=== PATIENT | male | born 1935 | race Caucasian/White ===

== ENCOUNTER 2016-03-30 22:29 | Inpatient (IN) | payer MEDICARE ==
[~2016-03-30] VITALS: Ht 180.3 cm; Wt 92.1 kg
[~2016-03-30 22:29] MED LIST: ALBU0.086 INH; ASMA220A INH; ATOR40TA PO; COUM2TAB PO; COUM3TAB PO; DUONI NEB; OMEP20TA39 PO; POTA20IN3 PO; PRED10 PO; SM A81CH PO; TERA5CAP3 PO; THEO200T11 PO; TOPR25TA2 PO; TORS1TAB12 PO
[2016-03-30 22:45] VITALS: BP 156/70; PULSE 108; RESP 35; TEMP 98.9; O2SAT 90
[2016-03-30] MEDS ORDERED: SODIUM CHLORIDE 0.9% FLUSH 5 ML FLUSH IVF PRN (22:45)
[2016-03-30 22:50] VITALS: RESP 22; O2SAT 94
[2016-03-30] MEDS ORDERED: FUROSEMIDE 40 MG/4 ML VIAL IV PUSH ONE (23:00)
[2016-03-30 23:02] VITALS: O2SAT 96
[2016-03-30 23:09] LABS: AUTOMATED NEUTROPHIL # 12.4 TH/MM3 (1.8-7.7); BASOPHIL # 0.2 TH/MM3 (0-0.2); BASOPHIL % 1.2 % (0.0-2.0); EOSINOPHIL # 0.1 TH/MM3 (0-0.4); EOSINOPHIL % 0.3 % (0.0-4.0); HEMATOCRIT 34.3 % (39.0-51.0); HEMO FLAGS DIFF FINAL; LYMPH % 5.4 % (9.0-44.0); LYMPHOCYTE # 0.8 TH/MM3 (1.0-4.8); MEAN CELL VOLUME 89.2 FL (80.0-100.0); MEAN CORPUSCULAR HEMOGLOBIN 28.7 PG (27.0-34.0); MEAN CORPUSCULAR HGB CONC 32.2 % (32.0-36.0); MONO % 9.9 % (0.0-8.0); NEUT % 83.2 % (16.0-70.0); PLATELET COUNT 242 TH/MM3 (150-450); RED BLOOD COUNT 3.85 MIL/MM3 (4.50-5.90); RED CELL DISTRIBUTION WIDTH 16.9 % (11.6-17.2); WHITE BLOOD COUNT 14.9 TH/MM3 (4.0-11.0)
--- NOTE | 2016-03-30 23:11 | RADRPT ---
EXAM DATE/TIME: 03/30/2016 22:56 [facility] COMPARISON: CHEST SINGLE AP, June 28, 2015, 10:54. INDICATIONS : Shortness of breath. MEDICAL HISTORY : Chronic obstructive pulmonary disease. SURGICAL HISTORY : CABG. ENCOUNTER: Initial ACUITY: 3 days PAIN SCORE: 0/10 LOCATION: Bilateral chest FINDINGS: A single view of the chest demonstrates the lungs to be symmetrically aerated without evidence of mas s, infiltrate or effusion. The cardiomediastinal contours are unremarkable. Osseous structures are intact. Prior median sternotomy with intact sternal wire sutures. CONCLUSION: The lungs are clear. Manjit Aguilar MD on March 30, 2016 at 23:09 Board Certified Radiologist. This report was verified electronically.
[2016-03-30 23:17] VITALS: BP 155/80; PULSE 90; RESP 28; O2SAT 91
[2016-03-30 23:19] VITALS: O2SAT 97
[2016-03-30 23:30] VITALS: BP 154/95
[2016-03-30 23:32] LABS: APTT (PATIENT) 20.5 SEC (24.3-30.1); PROTHROMBIN TIME - PATIENT 10.7 SEC (9.8-11.6)
--- NOTE | 2016-03-30 23:43 | PD ---
HPI Chief Complaint: Respiratory Symptoms Time Seen by Provider: 22:41 Travel History International Travel<30 days: No Contact w/Intl Traveler<30days: No Traveled to known affect area: No History of Present Illness HPI 81-year-old male arrives to the ER by EMS. The patient has COPD. He has had increasing shortness of breath for the past 2 days. He uses nebulizers at home a few times a day. He also has BiPAP at home. He describes some chest tightness. Earlier in the day he took nitroglycerin which was helpful. Severity is moderate. The patient's undergone catheterization and CABG. No cough or fever is reported. PFSH Past Medical History Hx Anticoagulant Therapy: Yes (warfarin) AAA: Yes Arthritis: Yes Asthma: No Atrial Fibrillation: Yes Autoimmune Disease: No Blood Disorders: No Anxiety: Yes Depression: No Heart Rhythm Problems: No Cancer: No Cardiac Catheterization: No Cardiovascular Problems: Yes High Cholesterol: Yes Chemotherapy: No Chest Pain: Yes Congestive Heart Failure: Yes COPD: Yes Cerebrovascular Accident: No Coronary Artery Disease: Yes Diabetes: No Diminished Hearing: Yes (HEARING AIDS ) Diverticulitis: Yes Endocrine: No Gastrointestinal Disorders: Yes (Mcgee's Esophagus) GERD: Yes Glaucoma: No Genitourinary: Yes (hemorrhoids, BPH) Headaches: No Hepatitis: No Hiatal Hernia: Yes Hypertension: Yes Immune Disorder: No Implanted Vascular Access Dvce: No Kidney Stones: No Musculoskeletal: Yes (right rotator cuff problems, BACK) Neurologic: Yes (positional vertigo; spinal stenosis) Psychiatric: No Reproductive: No Respiratory: Yes Immunizations Current: Yes Migraines: No Myocardial Infarction: Yes Radiation Therapy: No Renal Failure: No Seizures: No Sickle Cell Disease: No Sleep Apnea: Yes (USES CPAP AT NIGHT.) Thyroid Disease: No Ulcer: No Tetanus Vaccination: Unknown Influenza Vaccination: Yes PNEUMOCCOCAL Vaccine (Year): 1 Past Surgical History Abdominal Surgery: Yes (SPLEENECTOMY) AICD: No Arteriovenous Shunt: No Cardiac Surgery: Yes Cholecystectomy: Yes Coronary Artery Bypass Graft: Yes Coronary Stent: Yes Ear Surgery: No Endocrine Surgery: No Eye Surgery: No Genitourinary Surgery: No Gynecologic Surgery: No Insulin Pump: No Joint Replacement: No Neurologic Surgery: No Oral Surgery: No Pacemaker: No Thoracic Surgery: Yes Valve Replacement: Yes Other Surgery: Yes (SPLEEN REMOVED, L3/L4 BACK SURGERY ) Social History Alcohol Use: No (OCCASSIONALLY ) Tobacco Use: No Substance Use: No Allergies-Medications (Allergen,Severity, Reaction): Coded Allergies: Protamine Sulfate (Verified Allergy, Severe, Anaphylaxis, 06/28/15) Adhesives (Verified Allergy, Intermediate, 06/28/15) PATIENT DENIES *MDRO Multi-Drug Resistant Organism (Verified Adverse Reaction, Unknown, ) MRSA MRSA PCR Screen negative 06/29/14 and 07/02/14. Cleared per infection control Reported Meds & Prescriptions Reported Meds & Active Scripts Active Reported Omeprazole 20 Mg Tab 20 Mg PO DAILY Stiolto Respimat Inh (Tiotropium-Olodaterol Inh) 2.5-2.5 Mcg/Act Aero 2 Puff INH DAILY Montelukast (Montelukast Sodium) 10 Mg Tab 10 Mg PO HS Asmanex 120 Act Twisthaler (Mometasone 120 Act Inh) 220 Mcg/Act Inh 2 Puff INH BID Metoprolol Tartrate 25 Mg Tab 12.5 Mg PO DAILY Furosemide 20 Mg Tab 20 Mg PO DAILY Ferrous Sulfate 325 Mg Tab 325 Mg PO TID Escitalopram (Escitalopram Oxalate) 10 Mg Tab 10 Mg PO DAILY Clopidogrel (Clopidogrel Bisulfate) 75 Mg Tab 75 Mg PO DAILY Atorvastatin (Atorvastatin Calcium) 40 Mg Tab 40 Mg PO HS Aspirin 81 Mg Tabdr 81 Mg PO DAILY Potassium Chloride CR (Potassium Chloride) 10 Meq Tab 20 Meq PO DAILY Review of Systems Except as stated in HPI: all other systems reviewed are Neg Physical Exam Narrative GENERAL: 81-year-old male well-nourished well-developed quite dyspneic SKIN: Warm and dry. HEAD: Atraumatic. Normocephalic. EYES: Pupils equal and round. No scleral icterus. No injection or drainage. ENT: No nasal bleeding or discharge. Mucous membranes pink and moist. NECK: Trachea midline. No JVD. CARDIOVASCULAR: Tachycardia. Irregular rhythm. RESPIRATORY: Wheezing present bilaterally. Tachypnea. GASTROINTESTINAL: Abdomen soft, non-tender, nondistended. Hepatic and splenic margins not palpable. MUSCULOSKELETAL: No obvious deformities. No clubbing. No cyanosis. No edema. NEUROLOGICAL: Awake and alert. No obvious cranial nerve deficits. Motor grossly within normal limits. Normal speech. PSYCHIATRIC: Appropriate mood and affect; insight and judgment normal. Data Data Last Documented VS Vital Signs Date Time Temp Pulse Resp B/P Pulse Ox O2 Delivery O2 Flow Rate FiO2 03/31/16 01:30 97 60 03/30/16 23:30 154/95 03/30/16 23:19 BiPAP 03/30/16 23:17 90 28 03/30/16 22:50 4 03/30/16 22:45 98.9 Orders Electrocardiogram (03/30/16 ) Complete Blood Count With Diff (03/30/16 22:43) Comprehensive Metabolic Panel (03/30/16 22:43) B-Type Natriuretic Peptide (03/30/16 22:43) D-Dimer (03/30/16 22:43) Act Partial Throm Time (Ptt) (03/30/16 22:43) Prothrombin Time / Inr (Pt) (03/30/16 22:43) Magnesium (Mg) (03/30/16 22:43) Ckmb (Isoenzyme) Profile (03/30/16 22:43) Troponin I (03/30/16 22:43) Arterial Blood Gas (Abg) (03/30/16 22:43) Urinalysis - C+S If Indicated (03/30/16 22:43) Influenzae A/B Antigen (03/30/16 22:43) Blood Culture (03/30/16 22:43) Iv Access Insert/Monitor (03/30/16 22:43) Ecg Monitoring (03/30/16 22:43) Oximetry (03/30/16 22:43) Oxygen Administration (03/30/16 22:43) Chest, Single Ap (03/30/16 22:43) Sodium Chloride 0.9% Flush (Ns Flush) (03/30/16 22:45) Resp Bipap / Cpap Non Invas Vt (03/30/16 22:43) Furosemide Inj (Lasix Inj) (03/30/16 23:00) CKMB (03/30/16 22:40) CKMB% (03/30/16 22:40) Ct Pulmonary Angiogram (03/31/16 00:59) Iohexol 350 Inj (Omnipaque 350 Inj) (03/31/16 01:22) Albuterol Neb (Albuterol Neb) (03/31/16 02:00) Aspirin (Aspirin) (03/31/16 02:45) Morphine Inj (Morphine Inj) (03/31/16 02:45) Nitroglycerin 2% Oint (Nitroglycerin 2% (03/31/16 02:45) Labs Laboratory Tests Test 03/30/16 03/30/16 22:40 23:12 White Blood Count 14.9 TH/MM3 Red Blood Count 3.85 MIL/MM3 Hemoglobin 11.1 GM/DL Hematocrit 34.3 % Mean Corpuscular Volume 89.2 FL Mean Corpuscular Hemoglobin 28.7 PG Mean Corpuscular Hemoglobin 32.2 % Concent Red Cell Distribution Width 16.9 % Platelet Count 242 TH/MM3 Mean Platelet Volume 9.4 FL Neutrophils (%) (Auto) 83.2 % Lymphocytes (%) (Auto) 5.4 % Monocytes (%) (Auto) 9.9 % Eosinophils (%) (Auto) 0.3 % Basophils (%) (Auto) 1.2 % Neutrophils # (Auto) 12.4 TH/MM3 Lymphocytes # (Auto) 0.8 TH/MM3 Monocytes # (Auto) 1.5 TH/MM3 Eosinophils # (Auto) 0.1 TH/MM3 Basophils # (Auto) 0.2 TH/MM3 CBC Comment DIFF FINAL Differential Comment Prothrombin Time 10.7 SEC Prothromb Time International 1.0 RATIO Ratio Activated Partial 20.5 SEC Thromboplast Time D-Dimer Quantitative (PE/DVT) 2.60 MG/L FEU B-Type Natriuretic Peptide 102 PG/ML Sodium Level 142 MEQ/L Potassium Level 3.9 MEQ/L Chloride Level 108 MEQ/L Carbon Dioxide Level 24.0 MEQ/L Anion Gap 10 MEQ/L Blood Urea Nitrogen 23 MG/DL Creatinine 0.92 MG/DL Estimat Glomerular Filtration 79 ML/MIN Rate Random Glucose 155 MG/DL Calcium Level 8.8 MG/DL Magnesium Level 2.3 MG/DL Total Bilirubin 0.2 MG/DL Aspartate Amino Transf 20 U/L (AST/SGOT) Alanine Aminotransferase 20 U/L (ALT/SGPT) Alkaline Phosphatase 68 U/L Total Creatine Kinase 383 U/L Creatine Kinase MB 5.7 NG/ML Creatine Kinase MB % 1.5 % Troponin I 0.10 NG/ML Total Protein 6.6 GM/DL Albumin 3.2 GM/DL Blood Gas Puncture Site RT RADIAL Blood Gas Patient Temperature 98.6 Blood Gas HCO3 23 mmol/L Blood Gas Base Excess -1.0 mmol/L Blood Gas Oxygen Saturation 96 % Arterial Blood pH 7.42 Arterial Blood Partial 36 mmHg Pressure CO2 Arterial Blood Partial 159 mmHG Pressure O2 Arterial Blood Oxygen Content 15.9 Vol % Arterial Blood 1.7 % Carboxyhemoglobin Arterial Blood Methemoglobin 1.7 % Blood Gas Hemoglobin 11.5 G/DL Oxygen Delivery Device BiPAP Blood Gas Ventilator Setting IPAP10/EPAP 5 Blood Gas Inspired Oxygen 60 % MDM Medical Decision Making Medical Screen Exam Complete: Yes Emergency Medical Condition: Yes Medical Record Reviewed: Yes Differential Diagnosis Pneumonia, COPD, CHF, coronary artery disease, renal failure Narrative Course EKG reveals a regular rhythm with a right bundle branch block pattern is indeed ST depressions in the precordial leads V1 through V3 which appears unchanged compared to priors, stable right bundle branch block pattern is observed Last 24 hours Impressions Chest X-Ray 03/30/163 Signed Impressions: Service Date/Time: Wednesday, March 30, 2016 22:56 - CONCLUSION: The lungs are clear. Manjit Aguilar MD CBC & BMP Diagram 03/30/16 22:40 Tn 0.10 BNP 102 Albumin 3.2 D-Dimer 2.60 APTT 20.5 INR 1.0 7.42/36/23 BE-1.0, FiO2 60% The patient received BiPAP shortly following admission. He reports subjective improvement after BiPAP was started. He received a fever as of breathing treatments. Aspirin and nitroglycerin and morphine was added. The patient will be admitted to the [facility]. ACS is considered. D/w Dr Porter. Critical Care Narrative Aggregate critical care time was 40 minutes. Time to perform other separately billable procedures was not included in the critical care time. My time did not include minutes spent treating any other patients simultaneously or on activities that did not directly contribute to the patient's treatment. The services I provided to this patient were to treat and/or prevent clinically significant deterioration that could result in: Hypoxia, cardiopulmonary arrest I provided critical care services requiring my management, as noted below: Chart data review, documentation time, medication orders and management, vital sign assessments/reviewing monitor data, ordering and reviewing lab tests, ordering and interpreting/reviewing x-rays and diagnostic studies, care of the patient and discussion of the patient with the admitting physicians. Diagnosis Primary Impression: Elevated troponin I level Additional Impression: Dyspnea Qualified Code: R06.00 - Dyspnea, unspecified type Admitting Information Admitting Physician Requests: Admit Cam Walker MD Mar 30, 2016 23:43
[2016-03-30 23:49] LABS: ALKALINE PHOSPHATASE 68 U/L (45-117); ALT (GPT) 20 U/L (12-78); ANION GAP 10 MEQ/L (5-15); AST (GOT) 20 U/L (15-37); BLOOD UREA NITROGEN 23 MG/DL (7-18); CHLORIDE 108 MEQ/L (98-107); CREATINE KINASE 383 U/L (39-308); GLOMERULAR FILTRATION RATE 79 ML/MIN (>89); MAGNESIUM 2.3 MG/DL (1.5-2.5); POTASSIUM 3.9 MEQ/L (3.5-5.1); SODIUM (NA) 142 MEQ/L (136-145); TOTAL BILIRUBIN ADULT 0.2 MG/DL (0.2-1.0)
[2016-03-31] VITALS (21 sets, daily range): BP systolic 113–186; BP diastolic 70–91; PULSE 64–89; RESP 18–31; TEMP 97–97.5; O2SAT 94–99
[2016-03-31 00:02] LABS: BLOOD GAS CARBOXYHEMOGLOBIN 1.7 % (0-4); BLOOD GAS HCO3 23 mmol/L (22-26); BLOOD GAS METHEMOGLOBIN 1.7 % (0-2); BLOOD GAS O2 HGB SATURATION 96 % (90-100); BLOOD GAS OXYGEN CONTENT 15.9 Vol % (12.0-20.0); BLOOD GAS PCO2 36 mmHg (38-42); BLOOD GAS PO2 159 mmHG (61-120); BLOOD GAS TOTAL HGB 11.5 G/DL (12.0-16.0); TEMP CORR TO 98.6
[2016-03-31 00:02] LABS: CKMB 5.7 NG/ML (0.5-3.6)
[2016-03-31 00:03] LABS: CRITICAL VALUE NO; DRAW SITE RT RADIAL; FIO2 60 %; NUMBER OF ARTERIAL PUNCTURES 1; OXYGEN DEVICE BiPAP; STAT YES; ULNAR PULSE PRESENT; VENT SETTINGS IPAP10/EPAP 5
[2016-03-31] MEDS ORDERED: OMEP20TA PO (00:04)
[2016-03-31] MEDS ORDERED: FERR325T PO (00:04)
[2016-03-31] MEDS ORDERED: MONT10TA4 PO (00:04)
[2016-03-31] MEDS ORDERED: PRED10 PO (00:04)
[2016-03-31] MEDS ORDERED: TERA5CAP3 PO (00:04)
[2016-03-31] MEDS ORDERED: FURO20TA PO (00:04)
[2016-03-31] MEDS ORDERED: METO25TA3 PO (00:04)
[2016-03-31] MEDS ORDERED: ASPI1TAB69 PO (00:04)
[2016-03-31] MEDS ORDERED: ATOR40TA16 PO (00:04)
[2016-03-31] MEDS ORDERED: ESCI10TA PO (00:04)
[2016-03-31] MEDS ORDERED: POTA10TA8 PO (00:04)
[2016-03-31] MEDS ORDERED: CLOP75TA PO (00:04)
[2016-03-31] MEDS ORDERED: TIOT1AER INH (00:04)
[2016-03-31] MEDS ORDERED: ASMA220A INH (00:04)
[2016-03-31] MEDS ORDERED: THEO400T2 PO (00:04)
[2016-03-31] MEDS ORDERED: IOHEXOL 350 MG/ML 10 ML VIAL (for RAD DIAG) IV ONE (01:22)
--- NOTE | 2016-03-31 01:35 | RADRPT ---
EXAM DATE/TIME: 03/31/2016 01:16 [facility] COMPARISON: CT PULMONARY ANGIOGRAM, June 28, 2015, 12:25. INDICATIONS : Shortness of breath. IV CONTRAST: 79 cc Omnipaque 350 (iohexol) IV RADIATION DOSE: 14.50 CTDIvol (mGy) MEDICAL HISTORY : Hypertension. Chronic obstructive pulmonary disease. Congestive heart failure. SURGICAL HISTORY : CABG ENCOUNTER: Initial ACUITY: 1 day PAIN SCALE: 0/10 LOCATION: chest TECHNIQUE: Volumetric scanning of the chest was performed using a pulmonary embolism protocol MIP images were re constructed. Using automated exposure control and adjustment of the mA and/or kV according to patien t size, radiation dose was kept as low as reasonably achievable to obtain optimal diagnostic quality images. FINDINGS: PULMONARY ARTERIES: No filling defects are seen in the pulmonary arteries through the segmental level. LUNGS: There is no consolidation or pneumothorax . No concerning pulmonary nodule is visualized. PLEURAE: There is no pleural thickening or pleural effusion. MEDIASTINUM: There is good visualization of the great vessels of the middle mediastinum. No evidence of mediastin al or hilar adenopathy/mass. MISCELLANEOUS: Prior median sternotomy and CABG. CONCLUSION: The study is negative for pulmonary embolism. Manjit Aguilar MD on March 31, 2016 at 1:32 Board Certified Radiologist. This report was verified electronically.
[2016-03-31] MEDS: RESP: ALBUTEROL 2.5 MG/3 ML NEB (SCH) INH (02:01)
[2016-03-31] MEDS ORDERED: NITROGLYCERIN 2% OINT 1 GM PACKET TOP ONE (02:45)
[2016-03-31] MEDS ORDERED: MORPHINE SULFATE 4 MG/ML INJ IV PUSH ONE (02:45)
[2016-03-31] MEDS ORDERED: ASPIRIN 325 MG TAB PO ONE (02:45)
[2016-03-31] MEDS ORDERED: ACETAMINOPHEN/HYDROcodone 325 MG/5 MG TAB PO PRN (03:00)
[2016-03-31] MEDS ORDERED: SODIUM CHLORIDE 0.9% FLUSH 5 ML FLUSH FLUSH PRN (03:00)
[2016-03-31] MEDS ORDERED: MORPHINE SULFATE 4 MG/ML INJ IV PRN (03:00)
[2016-03-31] MEDS ORDERED: ACETAMINOPHEN 325 MG TAB PO PRN (03:00)
[2016-03-31] MEDS ORDERED: ONDANSETRON HCL 4 MG/2 ML VIAL IVP PRN (03:00)
[2016-03-31] MEDS ORDERED: BISACODYL 10 MG SUPP PR PRN (03:00)
[2016-03-31] MEDS ORDERED: RESP: ALBUTEROL 2.5 MG/IPRATROPIUM 0.5 MG NEB (PRN) NEB (03:00)
[2016-03-31] MEDS: LEVOFLOXACIN 750 MG PREMIX INJ 150 ML IV SCH (04:00)
--- NOTE | 2016-03-31 04:05 | HHI.HP ---
[facility] Unknown Admission Diagnosis COPD/Dyspnea, Tn 0.10 Diagnoses: (1) COPD (chronic obstructive pulmonary disease) Diagnosis: Principal (2) Elevated troponin I level Diagnosis: Principal (3) HTN (hypertension) Diagnosis: Principal Travel History International Travel<30 Days: No Contact w/Intl Traveler <30 Da: No Traveled to Known Affected Are: No History of Present Illness This is an 81-year-old male with PMH of COPD, A. fib, CAD and BPH who came to the ER with complaints of SOB and chest tightness x2 days. Denies fever, chills or cough. Took NTG x1 w/ improvement in symptoms. On arrival, O2 sat 90 % on RA, BP 156/70, HR 108, Temp 98.9. Was placed on 4L NC w/ O2 sat 93%, however while in ER had progressive SOB w/ hypoxia and started on BIPAP. Currently O2 sat 97% on 60% FIO2. ABG w/ pH 7.42, PCO2 36, PO2 159. WBC 14.9. Chemistry essentially at baseline. His CPK 383. Troponin 0.10. CXR with no acute findings. D-dimer elevated, CTA Pulm negative for PE. S/p Lasix, DuoNeb , MS and ASA in ER. Review of Systems Other ROS: 14 point review of systems otherwise negative. Past Family Social History Past Medical History PMH: COPD, A. fib, CAD and BPH Past Surgical History PAST SURGICAL HISTORY: Splenectomy, Cholecystectomy, Valve Replacement, Lumbar Surgery, Cardiac Stent, CABG Allergies: Coded Allergies: Protamine Sulfate (Verified Allergy, Severe, Anaphylaxis, 06/28/15) Adhesives (Verified Allergy, Intermediate, 06/28/15) PATIENT DENIES *MDRO Multi-Drug Resistant Organism (Verified Adverse Reaction, Unknown, ) MRSA MRSA PCR Screen negative 06/29/14 and 07/02/14. Cleared per infection control Family History PAST FAMILY HISTORY: Reviewed. No h/o DM or CAD Social History PAST SOCIAL HISTORY: Occasional alcohol. Negative for tobacco or drugs. Physical Exam Vital Signs Vital Signs Date Time Temp Pulse Resp B/P Pulse Ox O2 Delivery O2 Flow Rate FiO2 03/31/16 03:14 18 03/31/16 03:12 81 134/70 97 BiPAP 03/31/16 01:30 97 60 03/30/16 23:30 154/95 03/30/16 23:19 97 BiPAP 03/30/16 23:17 90 28 155/80 91 BiPAP 03/30/16 23:02 96 60 03/30/16 22:50 22 94 Nasal Cannula 4 03/30/16 22:50 94 Nasal Cannula 4 03/30/16 22:46 103 22 93 Nasal Cannula 4 03/30/16 22:45 98.9 108 35 156/70 90 Physical Exam PE: GENERAL: Pleasant elderly white male in no acute distress. Currently on BiPAP HEENT: PERRLA, EOMI. No scleral icterus or conjunctival pallor. No lid lag or facial droop. CARDIOVASCULAR: Regular rate and rhythm. No obvious murmurs to auscultation. No chest tenderness to palpation. RESPIRATORY: No obvious rhonchi or wheezing. Clear to auscultation. Breath sounds equal bilaterally. GASTROINTESTINAL: Abdomen soft, non-tender, nondistended. BS normal. MUSCULOSKELETAL: Extremities without clubbing, cyanosis, or edema. No obvious deformities. NEUROLOGICAL: Awake, alert and oriented x4. No focal neurologic deficits. Moving both upper and lower extremities spontaneously. Laboratory Laboratory Tests Test 03/30/16 03/30/16 22:40 23:12 White Blood Count 14.9 Red Blood Count 3.85 Hemoglobin 11.1 Hematocrit 34.3 Mean Corpuscular Volume 89.2 Mean Corpuscular Hemoglobin 28.7 Mean Corpuscular Hemoglobin 32.2 Concent Red Cell Distribution Width 16.9 Platelet Count 242 Mean Platelet Volume 9.4 Neutrophils (%) (Auto) 83.2 Lymphocytes (%) (Auto) 5.4 Monocytes (%) (Auto) 9.9 Eosinophils (%) (Auto) 0.3 Basophils (%) (Auto) 1.2 Neutrophils # (Auto) 12.4 Lymphocytes # (Auto) 0.8 Monocytes # (Auto) 1.5 Eosinophils # (Auto) 0.1 Basophils # (Auto) 0.2 CBC Comment DIFF FINAL Differential Comment Prothrombin Time 10.7 Prothromb Time International 1.0 Ratio Activated Partial 20.5 Thromboplast Time D-Dimer Quantitative (PE/DVT) 2.60 B-Type Natriuretic Peptide 102 Sodium Level 142 Potassium Level 3.9 Chloride Level 108 Carbon Dioxide Level 24.0 Anion Gap 10 Blood Urea Nitrogen 23 Creatinine 0.92 Estimat Glomerular Filtration 79 Rate Random Glucose 155 Calcium Level 8.8 Magnesium Level 2.3 Total Bilirubin 0.2 Aspartate Amino Transf 20 (AST/SGOT) Alanine Aminotransferase 20 (ALT/SGPT) Alkaline Phosphatase 68 Total Creatine Kinase 383 Creatine Kinase MB 5.7 Creatine Kinase MB % 1.5 Troponin I 0.10 Total Protein 6.6 Albumin 3.2 Blood Gas Puncture Site RT RADIAL Blood Gas Patient Temperature 98.6 Blood Gas HCO3 23 Blood Gas Base Excess -1.0 Blood Gas Oxygen Saturation 96 Arterial Blood pH 7.42 Arterial Blood Partial 36 Pressure CO2 Arterial Blood Partial 159 Pressure O2 Arterial Blood Oxygen Content 15.9 Arterial Blood 1.7 Carboxyhemoglobin Arterial Blood Methemoglobin 1.7 Blood Gas Hemoglobin 11.5 Oxygen Delivery Device BiPAP Blood Gas Ventilator Setting IPAP10/EPAP 5 Blood Gas Inspired Oxygen 60 Date/Time Procedure Status Source Growth 03/30/16 23:00 Aerobic Blood Culture Received Blood Peripheral Pending 03/30/16 23:00 Anaerobic Blood Culture Received Blood Peripheral Pending 03/30/16 22:54 Influenza Types A,B Antigen (SONALI) - Final Complete Nasal Washing NEGATIVE FOR FLU A AND B ANTIGEN.... Result Diagram: 03/30/16223903/30/162239 Assessment and Plan Problem List: (1) COPD (chronic obstructive pulmonary disease) ICD Code: J44.9 Status: Acute (2) Elevated troponin I level ICD Code: R79.89 Status: Acute (3) HTN (hypertension) ICD Code: I10 Status: Acute Assessment and Plan A/P: 1. COPD: Chronic Respiratory Failure w/ Acute Exacerbation and Respiratory Failure requiring BIPAP. +hypoxia w/ O2 sat 90% on RA, wheezing and increased work of breathing, currently on BIPAP, now improved. Continue BIPAP, wean as tolerated. Solu-Medrol, DuoNeb, Mucinex, resume home MDI. Check Theophylline level. Follows w/ Dr. Mcnamara as outpatient, will consult for further recommendations. 2. Elevated Trop: R/o ACS. Initial trop 0.10, EKG w/ no acute changes. Check serial enzymes. ASA, Statin, B-stephanie. Cardiology consult as needed. 3. HTN: Controlled. Resume home medications. Monitor BP. 4. DVT Prophylaxis: SCD/Teds. 5. Social work for d/c planning as needed. 6. Case discussed w/ ER physician at length. Physician Certification 2 Midnight Certification Type: Admission for Inpatient Services Order for Inpatient Services The services are ordered in accordance with Medicare regulations or non- Medicare payer requirements, as applicable. In the case of services not specified as inpatient-only, they are appropriately provided as inpatient services in accordance with the 2-midnight benchmark. Estimated LOS (days): 2 days is the estimated time the patient will need to remain in the hospital, assuming treatment plan goals are met and no additional complications. Post-Hospital Plan: Home Phyllis Porter MD Mar 31, 2016 04:05
[2016-03-31] MEDS: methylPREDNISolone SOD SUCC 40 MG/1 ML VIAL IV PUSH SCH ×4 (06:18→23:45)
[2016-03-31] MEDS ORDERED: RESP: ALBUTEROL 2.5 MG/IPRATROPIUM 0.5 MG NEB (SCH) NEB (08:00)
[2016-03-31 08:11] LABS: AUTOMATED NEUTROPHIL # 12.3 TH/MM3 (1.8-7.7); BASOPHIL # 0.1 TH/MM3 (0-0.2); BASOPHIL % 0.4 % (0.0-2.0); HEMATOCRIT 34.5 % (39.0-51.0); HEMO FLAGS DIFF FINAL; LYMPH % 0.9 % (9.0-44.0); LYMPHOCYTE # 0.1 TH/MM3 (1.0-4.8); MEAN CELL VOLUME 89.6 FL (80.0-100.0); MEAN CORPUSCULAR HEMOGLOBIN 28.7 PG (27.0-34.0); MONO % 1.4 % (0.0-8.0); NEUT % 97.3 % (16.0-70.0); PLATELET COUNT 239 TH/MM3 (150-450); RED BLOOD COUNT 3.85 MIL/MM3 (4.50-5.90); RED CELL DISTRIBUTION WIDTH 17.4 % (11.6-17.2); WHITE BLOOD COUNT 12.6 TH/MM3 (4.0-11.0)
[2016-03-31 08:31] LABS: ALT (GPT) 23 U/L (12-78); ANION GAP 10 MEQ/L (5-15); AST (GOT) 16 U/L (15-37); BICARBONATE 25.4 MEQ/L (21.0-32.0); BLOOD UREA NITROGEN 24 MG/DL (7-18); CHLORIDE 107 MEQ/L (98-107); GLOMERULAR FILTRATION RATE 74 ML/MIN (>89); POTASSIUM 4.3 MEQ/L (3.5-5.1); SODIUM (NA) 142 MEQ/L (136-145); THEOPHYLLINE LESS THAN 2.0 MCG/ML (10.0-20.0)
[2016-03-31 08:35] LABS: ALKALINE PHOSPHATASE 66 U/L (45-117); TOTAL BILIRUBIN ADULT 0.2 MG/DL (0.2-1.0)
[2016-03-31] MEDS ORDERED: STIOLTO RESPIMAT INH SCH (09:00)
[2016-03-31] MEDS ORDERED: ASMANEX TWISTHALER INH SCH (09:00)
[2016-03-31] MEDS: FERROUS SULFATE 325 MG (65 MG ELEMENTAL IRON) TAB PO SCH ×3 (09:21→17:56)
[2016-03-31] MEDS: ASPIRIN EC 81 MG TABEC PO SCH (09:21)
[2016-03-31] MEDS: SODIUM CHLORIDE 0.9% FLUSH 5 ML FLUSH FLUSH SCH ×2 (09:21→20:26)
[2016-03-31] MEDS: guaiFENesin E.R. 600 MG TAB PO SCH ×2 (09:22→20:26)
[2016-03-31] MEDS: FUROSEMIDE 20 MG TAB PO SCH (09:22)
[2016-03-31] MEDS: CLOPIDOGREL 75 MG TAB PO SCH (09:22)
[2016-03-31] MEDS: METOPROLOL TARTRATE 25 MG TAB PO SCH (09:22)
[2016-03-31] MEDS: ESCITALOPRAM OXALATE 10 MG TAB PO SCH (09:22)
[2016-03-31] MEDS: THEOPHYLLINE 200 MG EXTENDED RELEASE CAP PO SCH (09:23)
[2016-03-31] MEDS: PANTOPRAZOLE SOD 20 MG DELAYED RELEASE TAB PO SCH (09:23)
--- NOTE | 2016-03-31 14:50 | EKG ---
Date Performed: 03/30/2016 Time Performed: 22:38:45 PTAGE: 81 years EKG: Probable sinus tachycardia LEFT ATRIAL ENLARGEMENT MARKED LEFT AXIS DEVIATION RIGHT BUNDLE BRANCH BLOCK ABNORMAL ECG PREVIOUS TRACING : 06/28/2015 11.01 Compared to the previous tracing, rate has increased DOCTOR: Servando Walker Interpretating Date/Time 03/31/2016 14:49:59
--- NOTE | 2016-03-31 15:26 | PD.CONS ---
[facility] Service Critical Care Medicine Consult Requested By Dr. Cabrera Reason for Consult Acute resp failure requiring BIPAP Primary Care Physician Unknown History of Present Illness History of Present Illness 81-year-old male with a medical history significant for significant COPD, atrial fibrillation, coronary artery disease, BPH who presented to the ER with shortness of breath/chest tightness for 2 days. He denied any fevers chills or cough. Patient was initially placed on 4 L nasal cannula however subsequently developed worsening hypoxia and was started on BiPAP. CT pulmonary angiogram was negative for PE and did not reveal any infiltrates. He did have a troponin of 0.10. He was initially admitted by hospitalist service however in view of worsening respiratory status requiring BiPAP, critical care consult was requested by Dr. Cabrera. He did previously received Lasix, Solu-Medrol, bronchodilators in the ER along with aspirin.. His rouge mixer is Dr. Deo mcnamara was consulted by hospitalist service and is already evaluated patient. Review of Systems Other ROS: 14 point review of systems otherwise negative. Past Family Social History Past Medical History PMH: COPD, A. fib, CAD and BPH Past Surgical History PAST SURGICAL HISTORY: Splenectomy, Cholecystectomy, Valve Replacement, Lumbar Surgery, Cardiac Stent, CABG Allergies: Coded Allergies: Protamine Sulfate (Verified Allergy, Severe, Anaphylaxis, 06/28/15) Adhesives (Verified Allergy, Intermediate, 06/28/15) PATIENT DENIES *MDRO Multi-Drug Resistant Organism (Verified Adverse Reaction, Unknown, ) MRSA MRSA PCR Screen negative 06/29/14 and 07/02/14. Cleared per infection control Family History PAST FAMILY HISTORY: Reviewed. No h/o DM or CAD Social History PAST SOCIAL HISTORY: Occasional alcohol. Negative for tobacco or drugs. Physical Exam Vital Signs Vital Signs Date Time Temp Pulse Resp B/P Pulse Ox O2 Delivery O2 Flow Rate FiO2 03/31/16 14:40 73 24 141/71 95 Nasal Cannula 4 03/31/16 13:00 68 24 162/76 97 BiPAP 50 03/31/16 12:00 97.5 64 21 157/83 98 BiPAP 50 03/31/16 11:00 75 22 156/79 96 BiPAP 50 03/31/16 10:00 82 25 155/76 96 BiPAP 50 03/31/16 09:00 85 23 172/90 94 BiPAP 50 03/31/16 08:11 99 40 03/31/16 08:00 BiPAP 03/31/16 08:00 97.4 89 30 141/87 94 BiPAP 40 03/31/16 06:20 85 28 113/70 97 BiPAP 03/31/16 05:03 96 60 03/31/16 03:14 18 03/31/16 03:12 81 134/70 97 BiPAP 03/31/16 01:30 97 60 03/30/16 23:30 154/95 03/30/16 23:19 97 BiPAP 03/30/16 23:17 90 28 155/80 91 BiPAP 03/30/16 23:02 96 60 03/30/16 22:50 22 94 Nasal Cannula 4 03/30/16 22:50 94 Nasal Cannula 4 03/30/16 22:46 103 22 93 Nasal Cannula 4 03/30/16 22:45 98.9 108 35 156/70 90 Physical Exam HEENT/Neuro: No pallor or icterus, tongue moist, JORDAN, Awake alert oriented 3 , nonfocal grossly, moving all 4 extremities Neck: No JVD Chest/pulmonary: On BiPAP with full facemask, scattered rhonchi, no wheezing or crackles Cardiovascular: S1-S2 regular no gallop or murmur GI/abdomen: Soft, nontender, bowel sounds present Extremities: Warm bilaterally, no edema Laboratory Laboratory Tests Test 03/30/16 03/30/16 03/31/16 03/31/16 22:40 23:12 07:21 12:26 White Blood Count 14.9 12.6 Red Blood Count 3.85 3.85 Hemoglobin 11.1 11.0 Hematocrit 34.3 34.5 Mean Corpuscular Volume 89.2 89.6 Mean Corpuscular Hemoglobin 28.7 28.7 Mean Corpuscular Hemoglobin 32.2 32.0 Concent Red Cell Distribution Width 16.9 17.4 Platelet Count 242 239 Mean Platelet Volume 9.4 9.1 Neutrophils (%) (Auto) 83.2 97.3 Lymphocytes (%) (Auto) 5.4 0.9 Monocytes (%) (Auto) 9.9 1.4 Eosinophils (%) (Auto) 0.3 0.0 Basophils (%) (Auto) 1.2 0.4 Neutrophils # (Auto) 12.4 12.3 Lymphocytes # (Auto) 0.8 0.1 Monocytes # (Auto) 1.5 0.2 Eosinophils # (Auto) 0.1 0.0 Basophils # (Auto) 0.2 0.1 CBC Comment DIFF FINAL DIFF FINAL Differential Comment Prothrombin Time 10.7 Prothromb Time International 1.0 Ratio Activated Partial 20.5 Thromboplast Time D-Dimer Quantitative (PE/DVT) 2.60 B-Type Natriuretic Peptide 102 Sodium Level 142 142 Potassium Level 3.9 4.3 Chloride Level 108 107 Carbon Dioxide Level 24.0 25.4 Anion Gap 10 10 Blood Urea Nitrogen 23 24 Creatinine 0.92 0.98 Estimat Glomerular Filtration 79 74 Rate Random Glucose 155 203 Calcium Level 8.8 8.8 Magnesium Level 2.3 Total Bilirubin 0.2 0.2 Aspartate Amino Transf 20 16 (AST/SGOT) Alanine Aminotransferase 20 23 (ALT/SGPT) Alkaline Phosphatase 68 66 Total Creatine Kinase 383 Creatine Kinase MB 5.7 Creatine Kinase MB % 1.5 Troponin I 0.10 0.09 0.11 Total Protein 6.6 6.5 Albumin 3.2 3.3 Blood Gas Puncture Site RT RADIAL Blood Gas Patient Temperature 98.6 Blood Gas HCO3 23 Blood Gas Base Excess -1.0 Blood Gas Oxygen Saturation 96 Arterial Blood pH 7.42 Arterial Blood Partial 36 Pressure CO2 Arterial Blood Partial 159 Pressure O2 Arterial Blood Oxygen Content 15.9 Arterial Blood 1.7 Carboxyhemoglobin Arterial Blood Methemoglobin 1.7 Blood Gas Hemoglobin 11.5 Oxygen Delivery Device BiPAP Blood Gas Ventilator Setting IPAP10/EPAP 5 Blood Gas Inspired Oxygen 60 Theophylline Level LESS THAN 2.0 Date/Time Procedure Status Source Growth 03/30/16 23:00 Aerobic Blood Culture - Preliminary Resulted Blood Peripheral NO GROWTH IN 1 DAY 03/30/16 23:00 Anaerobic Blood Culture - Preliminary Resulted Blood Peripheral NO GROWTH IN 1 DAY 03/30/16 22:54 Influenza Types A,B Antigen (SONALI) - Final Complete Nasal Washing NEGATIVE FOR FLU A AND B ANTIGEN.... Result Diagram: 03/31/1621 03/31/[address] Angiography 03/31/16 0059 Signed Impressions: Service Date/Time: Thursday, March 31, 2016 01:16 - CONCLUSION: The study is negative for pulmonary embolism. Manjit Aguilar MD Chest X-Ray 03/30/16 2233 Signed Impressions: Service Date/Time: Wednesday, March 30, 2016 22:56 - CONCLUSION: The lungs are clear. Manjit Aguilar MD Assessment and Plan Assessment and Plan 81-year-old male with: COPD exacerbation Acute respiratory failure requiring BiPAP Positive troponin CAD Plan Neuro: Follow neuro status, avoid sedatives and narcotics. Cardiovascular: Continue aspirin/Plavix/statin/beta stephanie. Cycle cardiac enzymes. Pulmonary: BiPAP to be continued in order to avoid intubation. Continue steroids, bronchodilators. Dr. Deo Mcnamara his rouge mixer has been consulted by hospitalist service. If respiratory status declines despite BiPAP may require intubation. GI/liver: By mouth diet if respiratory status permits. If patient cannot be taken off BiPAP he will have to remain nothing by mouth currently. Renal/: IV hydration, strict intake output, monitor and replete electro lites , follow BUN/creatinine. ID: Follow-up cultures. Negative for influenza. Empiric antibiotic coverage with IV Levaquin. Endocrine: SSI for glycemic control if needed. Prophylaxis: SCDs/subcutaneous Lovenox Condition critical. Time spent on critical care excluding procedures 40 minutes Dakota Cedeño MD Mar 31, 2016 15:26
[2016-03-31] MEDS: RESP: ALBUTEROL 2.5 MG/IPRATROPIUM 0.5 MG NEB (SCH) NEB ×2 (15:37→20:33)
--- NOTE | 2016-03-31 16:22 | MB ---
cc: ANAID DUNN M.D., R. STEVEN DATE OF CONSULTATION: 03/31/2016. HISTORY OF PRESENT ILLNESS: Mr. Cedillo is a 80-year-old white male who has very severe chronic COPD with an asthmatic component and has had prior hospitalizations here and multiple outpatient visits for exacerbations. I saw him about a week ago at which time we increased his steroid and he had an initial response but continued to have a decline over the last 24 to 48 hours with increasing shortness of breath, chest pain and congestion and came into the emergency room. He also has a history of DVT with pulmonary embolism back in June of 2014 but that cleared and eventually the decision was made to stop the anticoagulation. He has recently been on aspirin and Plavix actually prescribed for his underlying coronary disease. On presentation to the emergency room, he was in significant distress and eventually ended up on BiPAP and was comfortable. His arterial blood gases on BiPAP 10/5, pO2 was 159 with a pH 7.4, pCO2 36 and that was on 60%. He is currently comfortable on BiPAP and we will try him on nasal cannula. He has a chronic cough with congestion that intermittently produces sputum. He has had no recent hemoptysis. He also has significant prior cardiovascular history with a valve replacement, bypass surgery and coronary artery disease and is followed carefully by Dr. Dunn. PAST MEDICAL HISTORY: Additional past history: 1. Obstructive sleep apnea for which he uses C-PAP. 2. He has had a previous splenectomy. 3. He has had chronic hypertension. 4. Benign prostate hypertrophy. 5. A prior cholecystectomy. 6. Back surgery in 2014. SOCIAL HISTORY: He was a former smoker but has quit many years ago. He does drink alcohol on occasion. He is and living with his . ALLERGIES: 1. ADHESIVES. 2. PROTAMINE SULFATE. MEDICATIONS: Reviewed in the electronic medical record. REVIEW OF SYSTEMS: He has had no syncope. No nausea or vomiting. No abdominal pain. No recent change in bowel habits or diarrhea. No increasing edema. PHYSICAL EXAMINATION: GENERAL: An elderly white male in no distress at rest currently on BiPAP, comfortable. VITAL SIGNS: Afebrile, respirations 22, blood pressure is 150/80 and his pulse is 70 to 80. Saturations are 96%. HEAD, EYES, EARS, NOSE, THROAT: Sclerae anicteric. BiPAP mask in place. NECK: Neck veins are not distended. CHEST/LUNGS: Bilateral wheezing diffusely moderate severity minimal congestion. No rhonchi. HEART: Regular rhythm. No harsh murmur. ABDOMEN: Abdomen is obese but soft. EXTREMITIES: He has no pitting edema or calf tenderness. No cyanosis or clubbing. LABORATORY DATA: Additional laboratory: White count is 12.6, hemoglobin is 11, platelets normal. BUN and creatinine 24 and 0.9. BNP 100. Troponin is mildly elevated. Blood sugar 203. Theophylline level is less than 2. DISCUSSION: Mr. Cedillo presents with known severe obstructive lung disease probably an acute exacerbation superimposed on his chronic disease but also has mild elevation in troponins and a significant cardiac history. PLAN: 1. Will have his anthropology faculty member, Dr. Dunn, look in on him. 2. He has had a CTA. there is no recurrent embolism, and in fact, he has no infiltrates either. No evidence of heart failure or pneumonia. 3. Blood cultures, influenza antigens are both negative at this point so will treat him as an acute exacerbation of COPD and try to wean him down to a nasal cannula again and await the anthropology faculty member's opinion with regard to his heart. Further diagnostic and/or therapeutic intervention will depend on his ongoing clinical course and response to therapy. R. MD SATYA Montes/SHAHID /12:21 PM /4:03 PM
--- NOTE | 2016-03-31 17:37 | MB ---
cc: ANAID LOWRY M.D., JOHN L. M.D. ABANDO, JOSE R. MD DATE OF CONSULTATION: 03/31/2016 REASON FOR CONSULTATION: Chest pain and COPD. ATTENDING PHYSICIAN: Dr. Cabrera. HISTORY OF PRESENT ILLNESS: The patient is an 81-year-old male who is well-known to Dr. Lowry. The patient states that he has significant COPD. He has had increasing shortness of breath over the last two days. He also had tightness in the upper part of his chest. He had no radiation of the chest discomfort. He did take nitroglycerin with some relief. The patient has a history of known coronary artery disease. He states he had coronary artery bypass grafting in 1993 in [place], [place] and then had repeat coronary artery bypass grafting at [facility] in 2003. He states that he had stents placed about two months ago at [facility] by Dr. Lowry. ALLERGIES: 1. PROTAMINE. HOME MEDICATIONS: 1. Clopidogrel 75 milligrams a day. 2. Atorvastatin 40 milligrams a day. 3. Aspirin 81 milligrams a day. 4. Potassium. 5. Metoprolol tartrate 12.5 milligrams a day. 6. Furosemide 20 milligrams a day. 7. Iron 325 milligrams a day. 8. Omeprazole 20 milligrams a day. 9. Montelukast. 10. The patient states he also takes Prednisone, though it is not listed on his medication list. PAST SURGICAL HISTORY: In addition to the bypass surgery, he has had: 1. Cholecystectomy. 2. Splenectomy secondary to trauma. 3. Back surgery. FAMILY HISTORY: His father of Parkinson's in his 80s. His mother had cancer and in her 80s. SOCIAL HISTORY: The patient is . He has not smoked in over 30 years. 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 REVIEW OF SYSTEMS: Positive for COPD. No history of stroke or diabetes. Positive for esophagitis as well as arthritis including spinal stenosis and rotator cuff problems. He has had a history of hypertension as well as sleep apnea. He has also had some hearing loss. PHYSICAL EXAMINATION: GENERAL: On examination, he is a pleasant and cooperative elderly male who is sitting in bed. He has BiPAP mask on. VITAL SIGNS: Blood pressure is 113/70, pulse is 85, though it was more rapid on EKG earlier. HEAD, EYES, EARS, NOSE, THROAT: Pupils reactive to light. Fundi not examined. LUNGS: He does have some expiratory wheezing. CARDIAC: Regular rhythm. Grade 1 systolic murmur. ABDOMEN: The abdomen is soft. No masses palpable. He has intact peripheral pulses with no edema. LABORATORY: Hemoglobin 11.0, hematocrit 34.5, white count 12,600. Sodium 142, potassium 4.3, BUN 24, creatinine 0.98 and sugar is 203. Troponin is less than 0.10 and repeat 0.09. Total CPK is 383 and repeat is 5.7. EKGS: EKG shows right bundle branch block. CT of the chest was negative for pulmonary emboli. A chest x-ray showed the lungs to be clear. IMPRESSION: 1. COPD with probable exacerbation. 2. Chest pain with elevated troponin. 3. History of coronary artery disease with prior coronary bypass grafting 1993, 2003 and stenting in 2015. 4. Glucose intolerance. 5. Hyperlipidemia. DISCUSSION AND RECOMMENDATIONS: It is difficult to know whether the patient's chest tightness is secondary to his lungs or heart, though my impression is that it is more likely be secondary to his lungs than his heart. 1. I would recommend he stay on the present medications. 2. He has been seen by Dr. cMnamara for treatment of his lung disease. 3. We will get followup troponin. 4. We will have Dr. Lowry follow him on Saturday. Thank you for asking us to see him. MD DEEDEE Segundo/SHAHID /1:01 PM /5:14 PM
[2016-03-31] MEDS ORDERED: CHLORHEXIDINE GLUCONATE 2 % 1 PACK (2 CLOTHS)(extra cloths) TOP PRN (19:00)
[2016-03-31] MEDS: MONTELUKAST SODIUM 10 MG TAB PO SCH (20:26)
[2016-03-31] MEDS: LACTOBACILLUS ACIDOPHILUS TAB PO SCH (20:26)
[2016-03-31] MEDS: TERAZOSIN HCL 5 MG CAP PO SCH (20:26)
[2016-03-31] MEDS: ATORVASTATIN 40 MG TAB PO SCH (20:26)
[2016-04-01] VITALS (16 sets, daily range): BP systolic 120–177; BP diastolic 62–103; PULSE 56–98; RESP 18–28; TEMP 96.8–97.9; O2SAT 93–99
[2016-04-01] MEDS: RESP: ALBUTEROL 2.5 MG/IPRATROPIUM 0.5 MG NEB (SCH) NEB ×4 (02:50→20:10)
[2016-04-01] MEDS: CHLORHEXIDINE GLUCONATE 2 % 1 PACK (2 CLOTHS)(taper/protocol) TOP SCH (04:00)
[2016-04-01] MEDS: LEVOFLOXACIN 750 MG PREMIX INJ 150 ML IV SCH (04:09)
[2016-04-01] MEDS: methylPREDNISolone SOD SUCC 40 MG/1 ML VIAL IV PUSH SCH ×4 (05:25→23:10)
[2016-04-01] MEDS: guaiFENesin E.R. 600 MG TAB PO SCH ×2 (08:18→19:51)
[2016-04-01] MEDS: CLOPIDOGREL 75 MG TAB PO SCH (08:18)
[2016-04-01] MEDS: ASPIRIN EC 81 MG TABEC PO SCH (08:18)
[2016-04-01] MEDS: THEOPHYLLINE 200 MG EXTENDED RELEASE CAP PO SCH (08:18)
[2016-04-01] MEDS: ENALAPRILAT 1.25 MG/ML VIAL IV PUSH PRN ×2 (08:18→22:18)
[2016-04-01] MEDS: LACTOBACILLUS ACIDOPHILUS TAB PO SCH ×2 (08:18→19:51)
[2016-04-01] MEDS: FERROUS SULFATE 325 MG (65 MG ELEMENTAL IRON) TAB PO SCH ×3 (08:18→17:08)
[2016-04-01] MEDS: ESCITALOPRAM OXALATE 10 MG TAB PO SCH (08:18)
[2016-04-01] MEDS: PANTOPRAZOLE SOD 20 MG DELAYED RELEASE TAB PO SCH (08:18)
[2016-04-01] MEDS: FUROSEMIDE 20 MG TAB PO SCH (08:18)
[2016-04-01] MEDS: SODIUM CHLORIDE 0.9% FLUSH 5 ML FLUSH FLUSH SCH ×2 (08:19→19:52)
[2016-04-01] MEDS: METOPROLOL TARTRATE 25 MG TAB PO SCH (08:19)
--- NOTE | 2016-04-01 11:22 | HHI.CCPN ---
Subjective Remarks/Hospital Course 03/31: 81-year-old male with a medical history significant for significant COPD, atrial fibrillation, coronary artery disease, BPH who presented to the ER with shortness of breath/chest tightness for 2 days. He denied any fevers chills or cough. Patient was initially placed on 4 L nasal cannula however subsequently developed worsening hypoxia and was started on BiPAP. CT pulmonary angiogram was negative for PE and did not reveal any infiltrates. He did have a troponin of 0.10. He was initially admitted by hospitalist service however in view of worsening respiratory status requiring BiPAP, critical care consult was requested by Dr. Cabrera. He did previously received Lasix, Solu-Medrol, bronchodilators in the ER along with aspirin.. His physical education professor is Dr. Deo Mcnamara was consulted by hospitalist service and had already evaluated patient. 04/01: Resting in bed, gets extremely dyspneic on talking. Currently off BiPAP since 8 AM this morning, on nasal cannula. Objective Vital Signs Date Time Temp Pulse Resp B/P Pulse Ox O2 Delivery O2 Flow Rate FiO2 04/01/16 10:00 72 04/01/16 08:00 97.0 28 146/103 96 04/01/16 07:00 Bi-Pap 40 03/31/16 14:40 4 Intake and Output 03/31/16 03/31/16 04/01/16 08:00 16:00 00:00 Intake Total 240 ml Output Total 100 ml Balance 140 ml Result Diagram: 03/31/16 0721 03/31/16 0721 Other Results Microbiology Date/Time Procedure Status Source Growth 03/30/16 22:54 Influenza Types A,B Antigen (SONALI) - Final Complete Nasal Washing NEGATIVE FOR FLU A AND B ANTIGEN.... Imaging Last Impressions CT Angiography 03/31/16 0059 Signed Impressions: Service Date/Time: Thursday, March 31, 2016 01:16 - CONCLUSION: The study is negative for pulmonary embolism. Manjit Aguilar MD Chest X-Ray 03/30/16 3423 Signed Impressions: Service Date/Time: Wednesday, March 30, 2016 22:56 - CONCLUSION: The lungs are clear. Manjit Aguilar MD Objective Remarks HEENT/Neuro: No pallor or icterus, tongue moist, JORDAN, Awake alert oriented 3 , nonfocal grossly, moving all 4 extremities Neck: No JVD Chest/pulmonary: On BiPAP with full facemask, scattered rhonchi, no wheezing or crackles Cardiovascular: S1-S2 regular no gallop or murmur GI/abdomen: Soft, nontender, bowel sounds present Extremities: Warm bilaterally, no edema A/P Assessment and Plan 81-year-old male with: COPD exacerbation Acute respiratory failure Positive troponin CAD Plan Neuro: Follow neuro status, avoid sedatives and narcotics. Cardiovascular: Continue aspirin/Plavix/statin/beta stephanie. Cycle cardiac enzymes. Cardiology following Pulmonary: Off BiPAP since 8 AM this morning tolerating nasal cannula well.. Continue steroids, bronchodilators. Dr. Deo Mcnamara his physical education professor has been consulted by hospitalist service. GI/liver: By mouth diet if respiratory status permits. Renal/: IV hydration, strict intake output, monitor and replete electro lites , follow BUN/creatinine. ID: Follow-up cultures. Negative for influenza. Empiric antibiotic coverage with IV Levaquin. Endocrine: SSI for glycemic control if needed. Prophylaxis: SCDs/subcutaneous Lovenox If patient remains on BiPAP today will transfer to hospitalist service for further medical management. Dakota Cedeño MD Apr 01, 2016 11:22
--- NOTE | 2016-04-01 15:02 | PD.CARD.PN ---
Subjective Subjective Remarks Patient is in ICU. Not having chest pain. There is no cath report dictated byt hand written note shows that he had stent in 80% lesion in RCA graft. He had patent "Y" radial graft to LAD anddiag. Diffuse disease in Cx. His troponin has been stable and may be secondary to COPD rather than cardiac. Objective Medications Current Medications Medications (Trade) Dose Ordered Sig/Chano Route Start Time Stop Time Status Last Admin (Levaquin 750 Mg Premix Inj) 150 ml @ 100 mls/hr Q24H IV 03/31/16 04:00 04/01/16 04:09 (NS Flush) 2 ml UNSCH PRN FLUSH 03/31/16 03:00 04/01/16 08:18 (NS Flush) 2 ml BID FLUSH 03/31/16 09:00 04/01/16 08:19 (Zofran Inj) 4 mg Q6H PRN IVP 03/31/16 03:00 (Dulcolax Supp) 10 mg DAILY PRN TX 03/31/16 03:00 (Tylenol) 650 mg Q6H PRN PO 03/31/16 03:00 (Vale 5-325 Mg) 1 tab Q4H PRN PO 03/31/16 03:00 03/31/16 20:26 (Morphine Inj) 2 mg Q3H PRN IV 03/31/16 03:00 (Ecotrin Ec) 81 mg DAILY PO 03/31/16 09:00 04/01/16 08:18 (Lipitor) 40 mg HS PO 03/31/16 21:00 03/31/16 20:26 (Plavix) 75 mg DAILY PO 03/31/16 09:00 04/01/16 08:18 (Lexapro) 10 mg DAILY PO 03/31/16 09:00 04/01/16 08:18 (Ferrous Sulfate) 325 mg TID PO 03/31/16 09:00 04/01/16 08:18 (Lasix) 20 mg DAILY PO 03/31/16 09:00 04/01/16 08:18 (Lopressor) 12.5 mg DAILY PO 03/31/16 09:00 03/31/16 09:22 (Singulair) 10 mg HS PO 03/31/16 21:00 03/31/16 20:26 (Protonix) 20 mg DAILY PO 03/31/16 09:00 04/01/16 08:18 (Hytrin) 5 mg HS PO 03/31/16 21:00 03/31/16 20:26 (Og-24) 400 mg DAILY PO 03/31/16 09:00 04/01/16 08:18 (SoluMEDROL INJ) 40 mg Q6HR IV PUSH 03/31/16 06:00 04/01/16 11:43 (Mucinex Er) 600 mg BID PO 03/31/16 09:00 04/01/16 08:18 (Lactinex) 1 tab Q12HR PO 03/31/16 21:00 04/01/16 08:18 (Vasotec Inj) 0.625 mg Q6HR PRN IV PUSH 03/31/16 19:00 04/01/16 08:18 (Catapres) 0.1 mg Q6HR PRN PO 03/31/16 19:00 Miscellaneous Information Patient in critical care unit? Ass... [id number] XX 03/31/16 19:00 03/31/16 19:00 (Chlorhexidine 2% Cloth) 3 pack DAILY@04 TOP 04/01/16 04:00 04/05/16 04:01 04/01/16 04:00 (Chlorhexidine 2% Cloth) 3 pack UNSCH PRN TOP 03/31/16 19:00 04/05/16 18:49 Vital Signs / I&O Vital Signs Date Time Temp Pulse Resp B/P Pulse Ox O2 Delivery O2 Flow Rate FiO2 04/01/16 14:00 63 04/01/16 12:00 97.2 65 24 120/63 98 04/01/16 12:00 65 04/01/16 10:00 72 04/01/16 08:00 66 04/01/16 08:00 97.0 66 28 146/103 96 04/01/16 07:00 96 Bi-Pap 40 04/01/16 06:00 56 04/01/16 04:00 64 04/01/16 04:00 97 40 04/01/16 04:00 97.9 64 20 141/64 97 04/01/16 02:00 61 04/01/16 00:50 98 40 04/01/16 00:00 62 04/01/16 00:00 96.8 62 25 168/88 98 03/31/16 22:55 98 40 03/31/16 22:00 67 03/31/16 20:00 67 03/31/16 20:00 97.5 67 31 186/91 98 03/31/16 19:42 98 40 03/31/16 19:00 98 Bi-Pap 40 03/31/16 18:03 92 Bi-Pap 40 03/31/16 18:00 75 03/31/16 16:00 65 03/31/16 16:00 97.0 65 26 151/71 98 03/31/16 15:37 98 40 03/31/16 15:17 68 I/O 03/31/16 03/31/16 03/31/16 04/01/16 04/01/16 04/01/16 07:00 15:00 23:00 07:00 15:00 23:00 Intake Total 240 ml 150 ml 240 ml Output Total 100 ml 230 ml 150 ml Balance 140 ml -80 ml 90 ml Intake Oral 240 ml 240 ml IV Total 150 ml 0 ml Output Urine Total 100 ml 230 ml 150 ml # Voids 1 Physical Exam GENERAL: SKIN: Warm and dry. HEAD: Normocephalic. EYES: No scleral icterus. No injection or drainage. NECK: Supple, trachea midline. No JVD or lymphadenopathy. CARDIOVASCULAR: Regular rate and rhythm without murmurs, gallops, or rubs. RESPIRATORY: Exp wheezing bilaterally GASTROINTESTINAL: Abdomen soft, non-tender, nondistended. MUSCULOSKELETAL: No cyanosis, or edema. BACK: Nontender without obvious deformity. No CVA tenderness. Laboratory Last Impressions CT Angiography 03/31/16 0059 Signed Impressions: Service Date/Time: Thursday, March 31, 2016 01:16 - CONCLUSION: The study is negative for pulmonary embolism. Manjit Aguilar MD Chest X-Ray 03/30/16 2243 Signed Impressions: Service Date/Time: Wednesday, March 30, 2016 22:56 - CONCLUSION: The lungs are clear. Manjit Aguilar MD Laboratory Tests Test 03/31/16 15:00 Nasal Screen MRSA (PCR) NEGATIVE Assessment and Plan Assessment and Plan I suspect exacerbation of his COPD rather than cardiac. Dr. Lowry will see tomorrow. Cullen Holden MD Apr 01, 2016 15:02
[2016-04-01] MEDS: TERAZOSIN HCL 5 MG CAP PO SCH (19:51)
[2016-04-01] MEDS: MONTELUKAST SODIUM 10 MG TAB PO SCH (19:51)
[2016-04-01] MEDS: ATORVASTATIN 40 MG TAB PO SCH (19:51)
[2016-04-01] MEDS: ZOLPIDEM TARTRATE 5 MG TAB PO PRN (19:51)
[2016-04-02] VITALS (19 sets, daily range): BP systolic 127–183; BP diastolic 55–99; PULSE 58–78; RESP 18–28; TEMP 97.4–97.9; O2SAT 93–100
[2016-04-02] MEDS: CHLORHEXIDINE GLUCONATE 2 % 1 PACK (2 CLOTHS)(taper/protocol) TOP SCH (03:42)
[2016-04-02] MEDS: LEVOFLOXACIN 750 MG PREMIX INJ 150 ML IV SCH (03:42)
[2016-04-02] MEDS: RESP: ALBUTEROL 2.5 MG/IPRATROPIUM 0.5 MG NEB (SCH) NEB ×4 (04:26→21:59)
[2016-04-02] MEDS: methylPREDNISolone SOD SUCC 40 MG/1 ML VIAL IV PUSH SCH ×3 (06:25→21:25)
[2016-04-02] MEDS: FUROSEMIDE 20 MG TAB PO SCH (08:15)
[2016-04-02] MEDS: SODIUM CHLORIDE 0.9% FLUSH 5 ML FLUSH FLUSH SCH ×2 (08:15→20:24)
[2016-04-02] MEDS: ESCITALOPRAM OXALATE 10 MG TAB PO SCH (08:15)
[2016-04-02] MEDS: METOPROLOL TARTRATE 25 MG TAB PO SCH (08:16)
[2016-04-02] MEDS: PANTOPRAZOLE SOD 20 MG DELAYED RELEASE TAB PO SCH (08:16)
[2016-04-02] MEDS: ASPIRIN EC 81 MG TABEC PO SCH (08:16)
[2016-04-02] MEDS: THEOPHYLLINE 200 MG EXTENDED RELEASE CAP PO SCH (08:16)
[2016-04-02] MEDS: LACTOBACILLUS ACIDOPHILUS TAB PO SCH ×2 (08:16→20:24)
[2016-04-02] MEDS: CLOPIDOGREL 75 MG TAB PO SCH (08:16)
[2016-04-02] MEDS: FERROUS SULFATE 325 MG (65 MG ELEMENTAL IRON) TAB PO SCH ×3 (08:16→17:29)
[2016-04-02] MEDS: guaiFENesin E.R. 600 MG TAB PO SCH ×2 (08:16→20:25)
--- NOTE | 2016-04-02 15:50 | HHI.PR ---
Subjective Remarks Transferred here from hall manager for COPD exacerbation Patient on BiPAP, stated no chest pain, but positive for cough and phlegm He still wheezing, afebrile, I discussed with the nurse, stated pulmonology Dr. mcnamara will continue monitoring patient Objective Vitals Vital Signs Date Time Temp Pulse Resp B/P Pulse Ox O2 Delivery O2 Flow Rate FiO2 04/02/16 14:00 58 04/02/16 13:26 100 35 04/02/16 12:00 60 04/02/16 12:00 97.5 60 21 134/99 99 04/02/16 10:00 63 04/02/16 08:54 97 Nasal Cannula 4.00 04/02/16 08:00 78 04/02/16 08:00 97.8 63 24 178/95 99 04/02/16 07:00 99 Nasal Cannula 5.00 04/02/16 06:00 66 04/02/16 04:26 99 35 04/02/16 04:00 61 04/02/16 04:00 97.6 61 18 163/82 97 04/02/16 02:00 61 04/02/16 01:35 99 40 04/02/16 00:00 97.9 60 18 127/55 98 04/02/16 00:00 60 04/01/16 22:04 99 40 04/01/16 22:00 98 04/01/16 20:10 98 40 04/01/16 20:00 97.8 72 18 177/91 96 04/01/16 20:00 76 04/01/16 19:00 98 Nasal Cannula 5.00 04/01/16 18:00 75 04/01/16 16:00 73 04/01/16 16:00 97.5 73 20 135/62 95 I/O 04/01/16 04/01/16 04/01/16 04/02/16 04/02/16 04/02/16 07:00 15:00 23:00 07:00 15:00 23:00 Intake Total 150 ml 240 ml 100 ml 390 ml 360 ml Output Total 230 ml 150 ml 350 ml 320 ml Balance -80 ml 90 ml -250 ml 70 ml 360 ml Intake Oral 240 ml 100 ml 240 ml 360 ml IV Total 150 ml 0 ml 150 ml 0 ml Output Urine Total 230 ml 150 ml 350 ml 320 ml # Voids 3 # Bowel Movements 0 Result Diagram: 03/31/16 0721 03/31/16 [address] Angiography 03/31/16 0059 Signed Impressions: Service Date/Time: Thursday, March 31, 2016 01:16 - CONCLUSION: The study is negative for pulmonary embolism. Manjit Aguilar MD Chest X-Ray 03/30/16 2243 Signed Impressions: Service Date/Time: Wednesday, March 30, 2016 22:56 - CONCLUSION: The lungs are clear. Manjit Aguilar MD Objective Remarks GENERAL: This is a well-nourished, well-developed patient, in mild respiratory distress is on BiPAP CARDIOVASCULAR: Regular rate and rhythm without murmurs, gallops, or rubs. RESPIRATORY: Diffuse expiratory wheezes, diminish breath sounds bilaterally. GASTROINTESTINAL: Abdomen soft, non-tender,nondistended. Normal active bowel sounds MUSCULOSKELETAL: Extremities without clubbing, cyanosis, or edema. NEURO: Alert & Oriented x4 to person, place, time, situation. Moves all ext x4 A/P Problem List: (1) COPD (chronic obstructive pulmonary disease) ICD Code: J44.9 Status: Acute (2) Elevated troponin I level ICD Code: R79.89 Status: Acute (3) HTN (hypertension) ICD Code: I10 Status: Acute Assessment and Plan 03/31: 81-year-old male with a medical history significant for significant COPD, atrial fibrillation, coronary artery disease, BPH who presented to the ER with shortness of breath/chest tightness for 2 days. He denied any fevers chills or cough. Patient was initially placed on 4 L nasal cannula however subsequently developed worsening hypoxia and was started on BiPAP. CT pulmonary angiogram was negative for PE and did not reveal any infiltrates. He did have a troponin of 0.10. He was initially admitted by hospitalist service however in view of worsening respiratory status requiring BiPAP, critical care consult was requested by Dr. Cabrera. He did previously received Lasix, Solu-Medrol, bronchodilators in the ER along with aspirin.. His box spring maker is Dr. Deo Mcnamara was consulted by hospitalist service and had already evaluated patient. 04/01: Resting in bed, gets extremely dyspneic on talking. Currently off BiPAP since 8 AM this morning, on nasal cannula. 04/02/16: Patient laying in bed with BiPAP on, still dyspneic, with wheezes, stated is still having cough, pulmonary followin, check CBC BMP in a.m. A/P: 81-year-old male with: COPD exacerbation Acute respiratory failure Positive troponin CAD Plan Continue aspirin/Plavix/statin/beta stephanie. Cycle cardiac enzymes. Cardiology following On BiPAP alternated with nasal cannula.. Continue steroids, bronchodilators. Appreciate box spring maker Dr. Desouza consultation IV hydration, strict intake output, monitor and replete electro lites, follow BUN/creatinine. Follow-up cultures. Negative for influenza. Empiric antibiotic coverage with IV Levaquin. SSI for glycemic control if needed. Prophylaxis: SCDs/subcutaneous Lovenox Erik Aleman MD Apr 02, 2016 15:50
[2016-04-02] MEDS: MONTELUKAST SODIUM 10 MG TAB PO SCH (20:24)
[2016-04-02] MEDS: ATORVASTATIN 40 MG TAB PO SCH (20:24)
[2016-04-02] MEDS: cloNIDine HCL 0.1 MG TAB PO PRN (20:25)
[2016-04-02] MEDS: TERAZOSIN HCL 5 MG CAP PO SCH (20:25)
[2016-04-02] MEDS: ZOLPIDEM TARTRATE 5 MG TAB PO PRN (20:34)
[2016-04-03] VITALS (19 sets, daily range): BP systolic 131–173; BP diastolic 74–93; PULSE 56–73; RESP 16–24; TEMP 96.8–98.4; O2SAT 94–99
[2016-04-03] MEDS: LEVOFLOXACIN 750 MG PREMIX INJ 150 ML IV SCH (03:02)
[2016-04-03] MEDS: CHLORHEXIDINE GLUCONATE 2 % 1 PACK (2 CLOTHS)(taper/protocol) TOP SCH (04:00)
[2016-04-03] MEDS: RESP: ALBUTEROL 2.5 MG/IPRATROPIUM 0.5 MG NEB (SCH) NEB ×4 (05:24→21:22)
[2016-04-03 05:37] LABS: AUTOMATED NEUTROPHIL # 12.6 TH/MM3 (1.8-7.7); BASOPHIL % 0.1 % (0.0-2.0); HEMATOCRIT 35.1 % (39.0-51.0); HEMO FLAGS DIFF FINAL; LYMPH % 1.1 % (9.0-44.0); LYMPHOCYTE # 0.1 TH/MM3 (1.0-4.8); MEAN CELL VOLUME 87.8 FL (80.0-100.0); MEAN CORPUSCULAR HEMOGLOBIN 28.6 PG (27.0-34.0); MEAN CORPUSCULAR HGB CONC 32.5 % (32.0-36.0); MONO % 4.3 % (0.0-8.0); NEUT % 94.5 % (16.0-70.0); PLATELET COUNT 242 TH/MM3 (150-450); RED CELL DISTRIBUTION WIDTH 16.7 % (11.6-17.2); WHITE BLOOD COUNT 13.3 TH/MM3 (4.0-11.0)
[2016-04-03] MEDS: methylPREDNISolone SOD SUCC 40 MG/1 ML VIAL IV PUSH SCH ×2 (06:41→20:23)
[2016-04-03] MEDS: LACTOBACILLUS ACIDOPHILUS TAB PO SCH ×2 (08:58→20:24)
[2016-04-03] MEDS: FERROUS SULFATE 325 MG (65 MG ELEMENTAL IRON) TAB PO SCH ×3 (08:59→18:20)
[2016-04-03] MEDS: CLOPIDOGREL 75 MG TAB PO SCH (08:59)
[2016-04-03] MEDS: ASPIRIN EC 81 MG TABEC PO SCH (08:59)
[2016-04-03] MEDS: THEOPHYLLINE 200 MG EXTENDED RELEASE CAP PO SCH (09:00)
[2016-04-03] MEDS: PANTOPRAZOLE SOD 20 MG DELAYED RELEASE TAB PO SCH (09:00)
[2016-04-03] MEDS: FUROSEMIDE 20 MG TAB PO SCH (09:00)
[2016-04-03] MEDS: ESCITALOPRAM OXALATE 10 MG TAB PO SCH (09:00)
[2016-04-03] MEDS: guaiFENesin E.R. 600 MG TAB PO SCH ×2 (09:00→20:24)
[2016-04-03] MEDS: METOPROLOL TARTRATE 25 MG TAB PO SCH (09:00)
[2016-04-03] MEDS: SODIUM CHLORIDE 0.9% FLUSH 5 ML FLUSH FLUSH SCH ×2 (09:00→20:23)
--- NOTE | 2016-04-03 16:08 | HHI.PR ---
Subjective Remarks Sitting on the chair on a nasal cannula Stated he hasn't been on the BiPAP since last night No fever but still huffing and puffing and wheezing significantly, Objective Vitals Vital Signs Date Time Temp Pulse Resp B/P Pulse Ox O2 Delivery O2 Flow Rate FiO2 04/03/16 10:02 97 Nasal Cannula 4.00 04/03/16 09:21 97 Bi-Pap 04/03/16 08:00 71 04/03/16 08:00 97.6 70 22 135/88 97 04/03/16 06:00 67 04/03/16 05:24 98 35 04/03/16 04:00 98.2 67 21 151/90 98 04/03/16 04:00 67 04/03/16 02:00 56 04/03/16 00:42 98 35 04/03/16 00:00 66 04/03/16 00:00 96.8 66 16 173/93 96 04/02/16 22:03 97 35 04/02/16 22:00 63 04/02/16 20:20 97 35 04/02/16 20:20 98 BiPAP 35 04/02/16 20:00 97 Bi-Pap 04/02/16 20:00 97.5 63 28 183/88 97 04/02/16 20:00 63 04/02/16 19:00 98 Nasal Cannula 5.00 04/02/16 18:00 68 I/O 04/02/16 04/02/16 04/02/16 04/03/16 04/03/16 04/03/16 07:00 15:00 23:00 07:00 15:00 23:00 Intake Total 390 ml 360 ml 480 ml 273 ml Output Total 320 ml 200 ml 400 ml Balance 70 ml 360 ml 280 ml -127 ml Intake Oral 240 ml 360 ml 480 ml 120 ml IV Total 150 ml 0 ml 153 ml Output Urine Total 320 ml 200 ml 400 ml # Voids 3 1 # Bowel Movements 0 Result Diagram: 04/03/1634604/03/16346 Objective Remarks GENERAL: This is a well-nourished, well-developed patient, in mild respiratory distress is on BiPAP CARDIOVASCULAR: Regular rate and rhythm without murmurs, gallops, or rubs. RESPIRATORY: Diffuse expiratory wheezes, diminish breath sounds bilaterally. GASTROINTESTINAL: Abdomen soft, non-tender,nondistended. Normal active bowel sounds MUSCULOSKELETAL: Extremities without clubbing, cyanosis, or edema. NEURO: Alert & Oriented x4 to person, place, time, situation. Moves all ext x4 A/P Problem List: (1) COPD (chronic obstructive pulmonary disease) ICD Code: J44.9 Status: Acute (2) Elevated troponin I level ICD Code: R79.89 Status: Acute (3) HTN (hypertension) ICD Code: I10 Status: Acute Assessment and Plan 03/31: 81-year-old male with a medical history significant for significant COPD, atrial fibrillation, coronary artery disease, BPH who presented to the ER with shortness of breath/chest tightness for 2 days. He denied any fevers chills or cough. Patient was initially placed on 4 L nasal cannula however subsequently developed worsening hypoxia and was started on BiPAP. CT pulmonary angiogram was negative for PE and did not reveal any infiltrates. He did have a troponin of 0.10. He was initially admitted by hospitalist service however in view of worsening respiratory status requiring BiPAP, critical care consult was requested by Dr. Cabrera. He did previously received Lasix, Solu-Medrol, bronchodilators in the ER along with aspirin.. His software licensing executive is Dr. Deo Mcnamara was consulted by hospitalist service and had already evaluated patient. 8: Resting in bed, gets extremely dyspneic on talking. Currently off BiPAP since 8 AM this morning, on nasal cannula. 04/02/16: Patient laying in bed with BiPAP on, still dyspneic, with wheezes, stated is still having cough, pulmonary followin, check CBC BMP in a.m. 04/03/16: Patient able to be on nasal cannula today was on BiPAP last night, still happen above and and chest is tight, was transferred to MedSurg floor, pulmonary following, continue current care with tapering Solu-Medrol, DuoNeb and oxygen A/P: 81-year-old male with: COPD exacerbation Acute respiratory failure Positive troponin CAD Plan Continue aspirin/Plavix/statin/beta stephanie. Cycle cardiac enzymes. Cardiology following On BiPAP alternated with nasal cannula.. Continue steroids, bronchodilators. Appreciate software licensing executive Dr. Desouza consultation IV hydration, strict intake output, monitor and replete electro lites, follow BUN/creatinine. Follow-up cultures. Negative for influenza. Empiric antibiotic coverage with IV Levaquin. SSI for glycemic control if needed. Prophylaxis: SCDs/subcutaneous Lovenox Erik Aleman MD Apr 03, 2016 16:08
[2016-04-03] MEDS: ATORVASTATIN 40 MG TAB PO SCH (20:24)
[2016-04-03] MEDS: TERAZOSIN HCL 5 MG CAP PO SCH (20:24)
[2016-04-03] MEDS: MONTELUKAST SODIUM 10 MG TAB PO SCH (20:24)
[2016-04-03] MEDS: ZOLPIDEM TARTRATE 5 MG TAB PO PRN (22:02)
[2016-04-04] VITALS (17 sets, daily range): BP systolic 144–176; BP diastolic 69–88; PULSE 52–77; RESP 20–24; TEMP 97.2–98.4; O2SAT 94–98
[2016-04-04] MEDS: cloNIDine HCL 0.1 MG TAB PO PRN (01:06)
[2016-04-04] MEDS: RESP: ALBUTEROL 2.5 MG/IPRATROPIUM 0.5 MG NEB (SCH) NEB ×4 (03:19→20:46)
[2016-04-04] MEDS: CHLORHEXIDINE GLUCONATE 2 % 1 PACK (2 CLOTHS)(taper/protocol) TOP SCH (04:00)
[2016-04-04] MEDS: METOPROLOL TARTRATE 25 MG TAB PO SCH (07:45)
[2016-04-04] MEDS: ESCITALOPRAM OXALATE 10 MG TAB PO SCH (07:50)
[2016-04-04] MEDS: LACTOBACILLUS ACIDOPHILUS TAB PO SCH ×2 (07:51→20:10)
[2016-04-04] MEDS: THEOPHYLLINE 200 MG EXTENDED RELEASE CAP PO SCH (07:51)
[2016-04-04] MEDS: guaiFENesin E.R. 600 MG TAB PO SCH ×2 (07:51→20:11)
[2016-04-04] MEDS: CLOPIDOGREL 75 MG TAB PO SCH (07:52)
[2016-04-04] MEDS: ASPIRIN EC 81 MG TABEC PO SCH (07:52)
[2016-04-04] MEDS: FUROSEMIDE 20 MG TAB PO SCH (07:52)
[2016-04-04] MEDS: FERROUS SULFATE 325 MG (65 MG ELEMENTAL IRON) TAB PO SCH ×3 (07:52→17:24)
[2016-04-04] MEDS: PANTOPRAZOLE SOD 20 MG DELAYED RELEASE TAB PO SCH (07:53)
[2016-04-04] MEDS: methylPREDNISolone SOD SUCC 40 MG/1 ML VIAL IV PUSH SCH ×2 (07:53→20:11)
[2016-04-04] MEDS: SODIUM CHLORIDE 0.9% FLUSH 5 ML FLUSH FLUSH SCH ×2 (07:54→20:11)
--- NOTE | 2016-04-04 13:50 | HHI.PR ---
Subjective Remarks Follow up on a transfer from intensive care service for COPD exacerbation dependent on BiPAP Patient today sitting on the chair he is on a nasal cannula however he was on BiPAP overnight on 4-5 times on and off through the day after discussing with the nurse To cough and wheeze significantly, no fever Objective Vitals Vital Signs Date Time Temp Pulse Resp B/P Pulse Ox O2 Delivery O2 Flow Rate FiO2 04/04/16 12:00 98.0 61 22 151/86 94 04/04/16 12:00 61 04/04/16 10:00 61 04/04/16 09:45 97 35 04/04/16 08:00 97.8 67 20 164/88 94 04/04/16 08:00 67 04/04/16 07:00 96 Nasal Cannula 3.00 04/04/16 06:00 68 04/04/16 04:11 97 35 04/04/16 04:00 52 04/04/16 04:00 97.2 52 22 144/69 94 04/04/16 02:00 62 04/04/16 01:30 98 35 04/04/16 00:00 97.8 60 22 176/75 96 04/04/16 00:00 60 04/03/16 22:05 98 35 04/03/16 22:00 62 04/03/16 21:29 98 BiPAP 35 04/03/16 21:22 98 35 04/03/16 20:00 73 04/03/16 20:00 97.5 73 24 145/86 94 04/03/16 19:00 95 Nasal Cannula 3.00 04/03/16 18:00 73 04/03/16 16:45 97 35 04/03/16 16:00 98.2 58 24 131/74 99 04/03/16 16:00 58 04/03/16 14:00 60 I/O 04/03/16 04/03/16 04/03/16 04/04/16 04/04/16 04/04/16 07:00 15:00 23:00 07:00 15:00 23:00 Intake Total 273 ml 640 ml 480 ml 120 ml Output Total 400 ml 800 ml 250 ml 400 ml Balance -127 ml -160 ml 230 ml -280 ml Intake Oral 120 ml 640 ml 480 ml 120 ml IV Total 153 ml Output Urine Total 400 ml 800 ml 250 ml 400 ml # Voids 1 1 1 Result Diagram: 04/03/167 04/03/16346 Objective Remarks GENERAL: This is a well-nourished, well-developed patient, in mild respiratory distress is on BiPAP CARDIOVASCULAR: Regular rate and rhythm without murmurs, gallops, or rubs. RESPIRATORY: Diffuse expiratory wheezes, diminish breath sounds bilaterally. GASTROINTESTINAL: Abdomen soft, non-tender,nondistended. Normal active bowel sounds MUSCULOSKELETAL: Extremities without clubbing, cyanosis, or edema. NEURO: Alert & Oriented x4 to person, place, time, situation. Moves all ext x4 A/P Problem List: (1) COPD (chronic obstructive pulmonary disease) ICD Code: J44.9 Status: Acute (2) Elevated troponin I level ICD Code: R79.89 Status: Acute (3) HTN (hypertension) ICD Code: I10 Status: Acute Assessment and Plan 81-year-old male with a medical history significant for significant COPD, atrial fibrillation, coronary artery disease, BPH who presented to the ER with shortness of breath/chest tightness for 2 days. He denied any fevers chills or cough. Patient was initially placed on 4 L nasal cannula however subsequently developed worsening hypoxia and was started on BiPAP. CT pulmonary angiogram was negative for PE and did not reveal any infiltrates. He did have a troponin of 0.10. He was initially admitted by hospitalist service however in view of worsening respiratory status requiring BiPAP, critical care consult was requested by Dr. Cabrera. He did previously received Lasix, Solu-Medrol, bronchodilators in the ER along with aspirin.. His sales property manager is Dr. Deo Mcnamara was consulted by hospitalist service and had already evaluated patient. A/P: 81-year-old male with: COPD exacerbation Acute respiratory failure Positive troponin CAD Plan Patient still depending BiPAP at night and 4-5 times during the day per the nurse, pulmonary following, will try to transfer to MedSur floor if the are comfortable with BiPAP applying frequently Continue aspirin/Plavix/statin/beta stephanie. Cycle cardiac enzymes. Cardiology following On BiPAP alternated with nasal cannula.. Continue steroids, bronchodilators. Appreciate sales property manager Dr. Desouza consultation IV hydration, strict intake output, monitor and replete electro lites, follow BUN/creatinine. Follow-up cultures. Negative for influenza. Empiric antibiotic coverage with IV Levaquin. SSI for glycemic control if needed. Prophylaxis: SCDs/subcutaneous Lovenox Erik Aleman MD Apr 04, 2016 13:50
[2016-04-04] MEDS: MONTELUKAST SODIUM 10 MG TAB PO SCH (20:10)
[2016-04-04] MEDS: ATORVASTATIN 40 MG TAB PO SCH (20:10)
[2016-04-04] MEDS: TERAZOSIN HCL 5 MG CAP PO SCH (20:11)
[2016-04-04] MEDS: ZOLPIDEM TARTRATE 5 MG TAB PO PRN (20:24)
[2016-04-05] VITALS (16 sets, daily range): BP systolic 127–157; BP diastolic 73–98; PULSE 63–99; RESP 19–24; TEMP 97.5–98; O2SAT 92–98
[2016-04-05] MEDS: CHLORHEXIDINE GLUCONATE 2 % 1 PACK (2 CLOTHS)(taper/protocol) TOP SCH (04:00)
[2016-04-05] MEDS: RESP: ALBUTEROL 2.5 MG/IPRATROPIUM 0.5 MG NEB (SCH) NEB ×4 (05:56→20:42)
[2016-04-05] MEDS: FERROUS SULFATE 325 MG (65 MG ELEMENTAL IRON) TAB PO SCH ×3 (09:00→18:00)
[2016-04-05] MEDS: SODIUM CHLORIDE 0.9% FLUSH 5 ML FLUSH FLUSH SCH ×2 (09:43→20:10)
[2016-04-05] MEDS: methylPREDNISolone SOD SUCC 40 MG/1 ML VIAL IV PUSH SCH (09:43)
[2016-04-05] MEDS: guaiFENesin E.R. 600 MG TAB PO SCH ×2 (09:44→20:11)
[2016-04-05] MEDS: METOPROLOL TARTRATE 25 MG TAB PO SCH (09:44)
[2016-04-05] MEDS: LACTOBACILLUS ACIDOPHILUS TAB PO SCH ×2 (09:44→20:10)
[2016-04-05] MEDS: PANTOPRAZOLE SOD 20 MG DELAYED RELEASE TAB PO SCH (09:45)
[2016-04-05] MEDS: ASPIRIN EC 81 MG TABEC PO SCH (09:45)
[2016-04-05] MEDS: ESCITALOPRAM OXALATE 10 MG TAB PO SCH (09:45)
[2016-04-05] MEDS: FUROSEMIDE 20 MG TAB PO SCH (09:45)
[2016-04-05] MEDS: CLOPIDOGREL 75 MG TAB PO SCH (09:46)
[2016-04-05] MEDS: THEOPHYLLINE 200 MG EXTENDED RELEASE CAP PO SCH (09:46)
--- NOTE | 2016-04-05 10:44 | HHI.PR ---
Subjective Remarks Follow-up COPD exacerbation/acute on chronic respiratory failure/elevated cardiac enzyme 04/05/16-patient seen and examined; report improvement or shortness of breath and denies any chest pain. Afebrile Objective Vitals Vital Signs Date Time Temp Pulse Resp B/P Pulse Ox O2 Delivery O2 Flow Rate FiO2 04/05/16 10:00 99 04/05/16 08:41 95 Nasal Cannula 2.00 04/05/16 08:00 80 04/05/16 07:00 96 Nasal Cannula 3.00 04/05/16 06:00 75 04/05/16 04:16 97 35 04/05/16 04:00 97.9 64 22 157/98 96 04/05/16 04:00 65 04/05/16 02:00 63 04/05/16 01:15 96 35 04/05/16 00:00 65 04/05/16 00:00 98.0 65 24 151/73 98 04/04/16 23:12 98 BiPAP 35 04/04/16 23:12 98 35 04/04/16 22:00 68 04/04/16 20:47 97 35 04/04/16 20:00 72 04/04/16 20:00 97.8 72 22 154/77 97 04/04/16 19:00 98 Nasal Cannula 3.00 04/04/16 18:00 77 04/04/16 16:00 76 04/04/16 16:00 98.4 76 24 145/78 94 04/04/16 14:00 63 04/04/16 12:00 98.0 61 22 151/86 94 04/04/16 12:00 61 I/O 04/04/16 04/04/16 04/04/16 04/05/16 04/05/16 04/05/16 07:00 15:00 23:00 07:00 15:00 23:00 Intake Total 120 ml 1840 ml 420 ml 240 ml Output Total 400 ml 600 ml 400 ml 600 ml Balance -280 ml 1240 ml 20 ml -360 ml Intake Oral 120 ml 640 ml 420 ml 240 ml IV Total 1200 ml 0 ml 0 ml Output Urine Total 400 ml 600 ml 400 ml 600 ml # Voids 1 2 # Bowel Movements 0 0 Result Diagram: 04/03/16 0347 04/03/[address] Angiography 03/31/16 0059 Signed Impressions: Service Date/Time: Thursday, March 31, 2016 01:16 - CONCLUSION: The study is negative for pulmonary embolism. Manjit Aguilar MD Chest X-Ray 03/30/16 2243 Signed Impressions: Service Date/Time: Wednesday, March 30, 2016 22:56 - CONCLUSION: The lungs are clear. Manjit Aguilar MD Objective Remarks GENERAL: NAD SKIN: Warm and dry. HEAD: Normocephalic. EYES: No scleral icterus. No injection or drainage. NECK: Supple, trachea midline. No JVD or lymphadenopathy. CARDIOVASCULAR: Regular rate and rhythm without murmurs, gallops, or rubs. RESPIRATORY: Breath sounds equal bilaterally. No accessory muscle use. GASTROINTESTINAL: Abdomen soft, non-tender, nondistended. MUSCULOSKELETAL: No cyanosis, or edema. BACK: Nontender without obvious deformity. No CVA tenderness. A/P Problem List: (1) COPD (chronic obstructive pulmonary disease) ICD Code: J44.9 Status: Acute (2) Elevated troponin I level ICD Code: R79.89 Status: Acute (3) HTN (hypertension) ICD Code: I10 Status: Acute Assessment and Plan 81-year-old male with 1. COPD: Chronic Respiratory Failure w/ Acute Exacerbation and Respiratory Failure requiring BIPAP. Appreciate input from pulmonary medicine, continue with Solu-Medrol, DuoNeb, antibiotics, Singulair, Mucinex. Continue BIPAP, wean as tolerated. Keep oxygen saturation above 92%. CTA negative for PE 2. Elevated Trop: ACS ruled out per protocol, appreciate input from cardiology and continue with ASA, Statin, B-stephanie. 3. HTN: Controlled. continue home medications. Monitor BP. 4. DVT Prophylaxis: SCD/Teds. Transfer to [facility] Continue with PT CBC/BMP in Reinaldo Riojas MD Apr 05, 2016 10:44
[2016-04-05] MEDS: TERAZOSIN HCL 5 MG CAP PO SCH (20:10)
[2016-04-05] MEDS: predniSONE 20 MG TAB PO SCH (20:10)
[2016-04-05] MEDS: ATORVASTATIN 40 MG TAB PO SCH (20:11)
[2016-04-05] MEDS: MONTELUKAST SODIUM 10 MG TAB PO SCH (20:11)
[2016-04-05] MEDS: ZOLPIDEM TARTRATE 5 MG TAB PO PRN (20:17)
[2016-04-06] VITALS (12 sets, daily range): BP systolic 126–165; BP diastolic 66–88; PULSE 60–102; RESP 16–23; TEMP 97.1–98.4; O2SAT 93–97
[2016-04-06] MEDS: RESP: ALBUTEROL 2.5 MG/IPRATROPIUM 0.5 MG NEB (SCH) NEB ×4 (04:00→20:43)
[2016-04-06 06:16] LABS: AUTOMATED NEUTROPHIL # 11.8 TH/MM3 (1.8-7.7); BASOPHIL % 0.1 % (0.0-2.0); HEMO FLAGS DIFF FINAL; LYMPH % 2.9 % (9.0-44.0); LYMPHOCYTE # 0.4 TH/MM3 (1.0-4.8); MEAN CELL VOLUME 87.5 FL (80.0-100.0); MEAN CORPUSCULAR HEMOGLOBIN 28.3 PG (27.0-34.0); MEAN CORPUSCULAR HGB CONC 32.4 % (32.0-36.0); MONO % 5.4 % (0.0-8.0); NEUT % 91.6 % (16.0-70.0); PLATELET COUNT 218 TH/MM3 (150-450); RED BLOOD COUNT 4.23 MIL/MM3 (4.50-5.90); RED CELL DISTRIBUTION WIDTH 16.5 % (11.6-17.2); WHITE BLOOD COUNT 12.9 TH/MM3 (4.0-11.0)
[2016-04-06 06:34] LABS: BICARBONATE 28.7 MEQ/L (21.0-32.0); POTASSIUM 3.9 MEQ/L (3.5-5.1)
[2016-04-06] MEDS: SODIUM CHLORIDE 0.9% FLUSH 5 ML FLUSH FLUSH SCH ×2 (09:00→21:47)
[2016-04-06] MEDS: FERROUS SULFATE 325 MG (65 MG ELEMENTAL IRON) TAB PO SCH ×3 (09:00→18:08)
[2016-04-06] MEDS: THEOPHYLLINE 200 MG EXTENDED RELEASE CAP PO SCH (10:06)
[2016-04-06] MEDS: FUROSEMIDE 20 MG TAB PO SCH (10:07)
[2016-04-06] MEDS: predniSONE 20 MG TAB PO SCH ×2 (10:07→20:48)
[2016-04-06] MEDS: ESCITALOPRAM OXALATE 10 MG TAB PO SCH (10:07)
[2016-04-06] MEDS: guaiFENesin E.R. 600 MG TAB PO SCH ×2 (10:08→20:49)
[2016-04-06] MEDS: ASPIRIN EC 81 MG TABEC PO SCH (10:08)
[2016-04-06] MEDS: LACTOBACILLUS ACIDOPHILUS TAB PO SCH ×2 (10:08→20:51)
[2016-04-06] MEDS: PANTOPRAZOLE SOD 20 MG DELAYED RELEASE TAB PO SCH (10:09)
[2016-04-06] MEDS: METOPROLOL TARTRATE 25 MG TAB PO SCH (10:09)
[2016-04-06] MEDS: CLOPIDOGREL 75 MG TAB PO SCH (10:10)
--- NOTE | 2016-04-06 12:49 | HHI.PR ---
Subjective Remarks Follow-up COPD exacerbation/acute on chronic respiratory failure/elevated cardiac enzyme 04/05/16-patient seen and examined; report improvement or shortness of breath and denies any chest pain. Afebrile 04/06/16-patient seen and examined; still with shortness of breath but denies any chest pain Objective Vitals Vital Signs Date Time Temp Pulse Resp B/P Pulse Ox O2 Delivery O2 Flow Rate FiO2 04/06/16 10:00 102 04/06/16 08:47 96 Nasal Cannula 3.00 04/06/16 08:00 67 04/06/16 08:00 97.5 67 18 155/88 93 04/06/16 07:00 94 Nasal Cannula 3.00 04/06/16 06:00 67 04/06/16 04:00 98.4 72 23 165/88 93 04/06/16 04:00 72 04/06/16 02:00 75 04/06/16 00:00 98.2 79 18 141/86 94 04/06/16 00:00 79 04/05/16 22:00 79 04/05/16 20:44 96 Nasal Cannula 3.00 04/05/16 20:00 98.0 84 21 140/96 92 04/05/16 20:00 84 04/05/16 19:00 92 Bi-Pap 04/05/16 18:00 81 04/05/16 16:00 64 04/05/16 16:00 97.5 84 20 141/74 98 04/05/16 14:00 88 I/O 04/05/16 04/05/16 04/05/16 04/06/16 04/06/16 04/06/16 07:00 15:00 23:00 07:00 15:00 23:00 Intake Total 240 ml 480 ml 120 ml 0 ml Output Total 600 ml 600 ml 500 ml 500 ml Balance -360 ml -120 ml -380 ml -500 ml Intake Oral 240 ml 480 ml 120 ml 0 ml IV Total 0 ml 0 ml 0 ml 0 ml Output Urine Total 600 ml 600 ml 500 ml 500 ml # Bowel Movements 0 0 0 0 Result Diagram: 04/06/1642104/06/16421 Objective Remarks GENERAL: NAD SKIN: Warm and dry. HEAD: Normocephalic. EYES: No scleral icterus. No injection or drainage. NECK: Supple, trachea midline. No JVD or lymphadenopathy. CARDIOVASCULAR: Regular rate and rhythm without murmurs, gallops, or rubs. RESPIRATORY: Breath sounds equal bilaterally. No accessory muscle use. Positive expiratory wheezes GASTROINTESTINAL: Abdomen soft, non-tender, nondistended. MUSCULOSKELETAL: No cyanosis, or edema. BACK: Nontender without obvious deformity. No CVA tenderness. A/P Problem List: (1) COPD (chronic obstructive pulmonary disease) ICD Code: J44.9 Status: Acute (2) Elevated troponin I level ICD Code: R79.89 Status: Acute (3) HTN (hypertension) ICD Code: I10 Status: Acute Assessment and Plan 81-year-old male with 1. COPD: Chronic Respiratory Failure w/ Acute Exacerbation and Respiratory Failure requiring BIPAP. Appreciate input from pulmonary medicine, continue with Solu-Medrol, DuoNeb, antibiotics, Singulair, Mucinex. Continue BIPAP, wean as tolerated. Keep oxygen saturation above 92%. CTA negative for PE 2. Elevated Trop: ACS ruled out per protocol, appreciate input from cardiology and continue with ASA, Statin, B-stephanie. 3. HTN: Controlled. continue home medications. Monitor BP. 4. DVT Prophylaxis: SCD/Teds. Continue with PT Reinaldo Choe MD Apr 06, 2016 12:49
[2016-04-06] MEDS: MONTELUKAST SODIUM 10 MG TAB PO SCH (20:48)
[2016-04-06] MEDS: ATORVASTATIN 40 MG TAB PO SCH (20:52)
[2016-04-06] MEDS: TERAZOSIN HCL 5 MG CAP PO SCH (20:52)
[2016-04-06] MEDS: ZOLPIDEM TARTRATE 5 MG TAB PO PRN (20:57)
[2016-04-07] VITALS (7 sets, daily range): BP systolic 121–149; BP diastolic 73–83; PULSE 61–76; RESP 16–20; TEMP 97.5–97.9; O2SAT 92–98
[2016-04-07] MEDS: RESP: ALBUTEROL 2.5 MG/IPRATROPIUM 0.5 MG NEB (SCH) NEB ×4 (03:25→21:22)
[2016-04-07] MEDS: guaiFENesin E.R. 600 MG TAB PO SCH ×2 (09:03→21:43)
[2016-04-07] MEDS: THEOPHYLLINE 200 MG EXTENDED RELEASE CAP PO SCH (09:03)
[2016-04-07] MEDS: CLOPIDOGREL 75 MG TAB PO SCH (09:03)
[2016-04-07] MEDS: LACTOBACILLUS ACIDOPHILUS TAB PO SCH ×2 (09:03→21:43)
[2016-04-07] MEDS: predniSONE 20 MG TAB PO SCH ×2 (09:03→21:44)
[2016-04-07] MEDS: FUROSEMIDE 20 MG TAB PO SCH (09:03)
[2016-04-07] MEDS: PANTOPRAZOLE SOD 20 MG DELAYED RELEASE TAB PO SCH (09:04)
[2016-04-07] MEDS: FERROUS SULFATE 325 MG (65 MG ELEMENTAL IRON) TAB PO SCH ×3 (09:04→17:30)
[2016-04-07] MEDS: METOPROLOL TARTRATE 25 MG TAB PO SCH (09:04)
[2016-04-07] MEDS: SODIUM CHLORIDE 0.9% FLUSH 5 ML FLUSH FLUSH SCH ×2 (09:04→21:46)
[2016-04-07] MEDS: ESCITALOPRAM OXALATE 10 MG TAB PO SCH (09:04)
[2016-04-07] MEDS: ASPIRIN EC 81 MG TABEC PO SCH (09:04)
--- NOTE | 2016-04-07 11:15 | HHI.PR ---
Subjective Remarks Follow-up COPD exacerbation/acute on chronic respiratory failure/elevated cardiac enzyme 04/05/16-patient seen and examined; report improvement or shortness of breath and denies any chest pain. Afebrile 04/06/16-patient seen and examined; still with shortness of breath but denies any chest pain 04/07/16-patient seen and examined; positive for shortness of breath and purse breathing; denies any chest pain. Patient states he will consider rehabilitation Objective Vitals Vital Signs Date Time Temp Pulse Resp B/P Pulse Ox O2 Delivery O2 Flow Rate FiO2 04/07/16 10:34 92 21 04/07/16 08:00 97.5 68 20 139/78 95 04/07/16 04:00 97.7 71 16 135/76 95 04/06/16 20:44 96 CPAP 4.00 04/06/16 20:00 98.1 71 20 130/77 97 04/06/16 20:00 81 04/06/16 20:00 Nasal Cannula 3.00 04/06/16 16:00 97.4 67 16 126/66 96 04/06/16 14:59 60 04/06/16 12:55 97.1 64 20 142/84 95 I/O 04/06/16 04/06/16 04/06/16 04/07/16 04/07/16 04/07/16 07:00 15:00 23:00 07:00 15:00 23:00 Intake Total 0 ml 100 ml 280 ml 120 ml Output Total 500 ml 400 ml 500 ml Balance -500 ml 100 ml -120 ml -380 ml Intake Oral 0 ml 100 ml 280 ml 120 ml IV Total 0 ml 0 ml Output Urine Total 500 ml 400 ml 500 ml # Voids 3 # Bowel Movements 0 2 Result Diagram: 04/06/1642104/06/16421 Objective Remarks GENERAL: NAD SKIN: Warm and dry. HEAD: Normocephalic. EYES: No scleral icterus. No injection or drainage. NECK: Supple, trachea midline. No JVD or lymphadenopathy. CARDIOVASCULAR: Regular rate and rhythm without murmurs, gallops, or rubs. RESPIRATORY: Breath sounds equal bilaterally. No accessory muscle use. Positive expiratory wheezes GASTROINTESTINAL: Abdomen soft, non-tender, nondistended. MUSCULOSKELETAL: No cyanosis, or edema. BACK: Nontender without obvious deformity. No CVA tenderness. A/P Problem List: (1) COPD (chronic obstructive pulmonary disease) ICD Code: J44.9 Status: Acute (2) Elevated troponin I level ICD Code: R79.89 Status: Acute (3) HTN (hypertension) ICD Code: I10 Status: Acute Assessment and Plan 81-year-old male with 1. COPD: Chronic Respiratory Failure w/ Acute Exacerbation and Respiratory Failure requiring BIPAP. Appreciate input from pulmonary medicine, s/p Solu- Medrol, continue with by mouth prednisone, DuoNeb, antibiotics, Singulair, Mucinex. Continue BIPAP, wean as tolerated. Keep oxygen saturation above 92%. CTA negative for PE. Patient will need pulmonary rehabilitation upon discharge 2. Elevated Trop: ACS ruled out per protocol, appreciate input from cardiology and continue with ASA, Statin, B-stephanie. 3. HTN: Controlled. continue home medications. Monitor BP. 4. DVT Prophylaxis: SCD/Teds. Continue with PT Discharge Planning Likely discharge within the next 48 hours Reinaldo Choe MD Apr 07, 2016 11:15
[2016-04-07] MEDS: ATORVASTATIN 40 MG TAB PO SCH (21:43)
[2016-04-07] MEDS: TERAZOSIN HCL 5 MG CAP PO SCH (21:43)
[2016-04-07] MEDS: MONTELUKAST SODIUM 10 MG TAB PO SCH (21:44)
[2016-04-07] MEDS: ZOLPIDEM TARTRATE 5 MG TAB PO PRN (21:48)
[2016-04-08] VITALS (10 sets, daily range): BP systolic 124–164; BP diastolic 67–91; PULSE 63–77; RESP 18–22; TEMP 97.3–98.1; O2SAT 93–97
[2016-04-08] MEDS: RESP: ALBUTEROL 2.5 MG/IPRATROPIUM 0.5 MG NEB (SCH) NEB ×3 (03:18→19:49)
[2016-04-08] MEDS: FERROUS SULFATE 325 MG (65 MG ELEMENTAL IRON) TAB PO SCH ×3 (08:27→17:55)
[2016-04-08] MEDS: SODIUM CHLORIDE 0.9% FLUSH 5 ML FLUSH FLUSH SCH ×2 (08:27→20:23)
[2016-04-08] MEDS: guaiFENesin E.R. 600 MG TAB PO SCH ×2 (08:27→20:22)
[2016-04-08] MEDS: FUROSEMIDE 20 MG TAB PO SCH (08:30)
[2016-04-08] MEDS: ESCITALOPRAM OXALATE 10 MG TAB PO SCH (08:30)
[2016-04-08] MEDS: PANTOPRAZOLE SOD 20 MG DELAYED RELEASE TAB PO SCH (08:30)
[2016-04-08] MEDS: predniSONE 20 MG TAB PO SCH ×2 (08:30→20:22)
[2016-04-08] MEDS: LACTOBACILLUS ACIDOPHILUS TAB PO SCH ×2 (08:30→20:22)
[2016-04-08] MEDS: THEOPHYLLINE 200 MG EXTENDED RELEASE CAP PO SCH (08:30)
[2016-04-08] MEDS: CLOPIDOGREL 75 MG TAB PO SCH (08:31)
[2016-04-08] MEDS: METOPROLOL TARTRATE 25 MG TAB PO SCH (08:31)
[2016-04-08] MEDS: ASPIRIN EC 81 MG TABEC PO SCH (08:31)
--- NOTE | 2016-04-08 08:45 | HHI.PR ---
Subjective Remarks Follow-up COPD exacerbation/acute on chronic respiratory failure/elevated cardiac enzyme 04/05/16-patient seen and examined; report improvement or shortness of breath and denies any chest pain. Afebrile 04/06/16-patient seen and examined; still with shortness of breath but denies any chest pain 04/07/16-patient seen and examined; positive for shortness of breath and purse breathing; denies any chest pain. Patient states he will consider rehabilitation 04/08/16-patient seen and examined, only with expiratory wheezes no other issues. Patient would like to be discharged to [facility] Objective Vitals Vital Signs Date Time Temp Pulse Resp B/P Pulse Ox O2 Delivery O2 Flow Rate FiO2 04/08/16 04:00 97.4 63 20 164/91 95 04/08/16 00:00 97.7 64 18 157/76 96 04/07/16 20:00 Nasal Cannula 2.00 04/07/16 20:00 65 04/07/16 20:00 97.6 66 20 142/81 98 04/07/16 16:00 97.9 76 20 121/73 92 04/07/16 12:00 97.7 61 20 149/83 93 04/07/16 10:34 92 21 I/O 04/07/16 04/07/16 04/07/16 04/08/16 04/08/16 04/08/16 07:00 15:00 23:00 07:00 15:00 23:00 Intake Total 120 ml 840 ml 360 ml 240 ml Output Total 500 ml 400 ml 300 ml Balance -380 ml 840 ml -40 ml -60 ml Intake Oral 120 ml 840 ml 360 ml 240 ml Output Urine Total 500 ml 400 ml 300 ml # Voids 3 # Bowel Movements 1 0 0 Result Diagram: 04/06/1642104/06/16421 Objective Remarks GENERAL: NAD SKIN: Warm and dry. HEAD: Normocephalic. EYES: No scleral icterus. No injection or drainage. NECK: Supple, trachea midline. No JVD or lymphadenopathy. CARDIOVASCULAR: Regular rate and rhythm without murmurs, gallops, or rubs. RESPIRATORY: Breath sounds equal bilaterally. No accessory muscle use. + expiratory wheezes GASTROINTESTINAL: Abdomen soft, non-tender, nondistended. MUSCULOSKELETAL: No cyanosis, or edema. BACK: Nontender without obvious deformity. No CVA tenderness. A/P Problem List: (1) COPD (chronic obstructive pulmonary disease) ICD Code: J44.9 Status: Acute (2) Elevated troponin I level ICD Code: R79.89 Status: Acute (3) HTN (hypertension) ICD Code: I10 Status: Acute Assessment and Plan 81-year-old male with 1. COPD: Chronic Respiratory Failure w/ Acute Exacerbation and Respiratory Failure requiring BIPAP. Appreciate input from pulmonary medicine, s/p Solu- Medrol, continue with by mouth prednisone, DuoNeb, antibiotics, Singulair, Mucinex. Continue BIPAP, wean as tolerated. Keep oxygen saturation above 92%. CTA negative for PE. Patient will need pulmonary rehabilitation upon discharge. However patient is now willing to be discharged to a rehabilitation facility likely [facility] 2. Elevated Trop: ACS ruled out per protocol, appreciate input from cardiology and continue with ASA, Statin, B-stephanie. 3. HTN: Controlled. continue home medications. Monitor BP. 4. DVT Prophylaxis: SCD/Teds. Continue with PT Discharge Planning Likely discharge within the next 48 hours Reinaldo Choe MD Apr 08, 2016 08:45
[2016-04-08] MEDS: ZOLPIDEM TARTRATE 5 MG TAB PO PRN (20:22)
[2016-04-08] MEDS: MONTELUKAST SODIUM 10 MG TAB PO SCH (20:22)
[2016-04-08] MEDS: TERAZOSIN HCL 5 MG CAP PO SCH (20:22)
[2016-04-08] MEDS: ATORVASTATIN 40 MG TAB PO SCH (20:23)
[2016-04-09] VITALS (8 sets, daily range): BP systolic 121–179; BP diastolic 70–84; PULSE 57–82; RESP 16–28; TEMP 96.4–97.9; O2SAT 91–97
[2016-04-09] MEDS: cloNIDine HCL 0.1 MG TAB PO PRN (00:01)
[2016-04-09 07:07] LABS: AUTOMATED NEUTROPHIL # 10.4 TH/MM3 (1.8-7.7); BASOPHIL % 0.2 % (0.0-2.0); HEMATOCRIT 34.1 % (39.0-51.0); HEMO FLAGS DIFF FINAL; LYMPH % 3.9 % (9.0-44.0); LYMPHOCYTE # 0.5 TH/MM3 (1.0-4.8); MEAN CELL VOLUME 87.6 FL (80.0-100.0); MEAN CORPUSCULAR HEMOGLOBIN 28.3 PG (27.0-34.0); MEAN CORPUSCULAR HGB CONC 32.3 % (32.0-36.0); MONO % 5.2 % (0.0-8.0); NEUT % 90.7 % (16.0-70.0); PLATELET COUNT 173 TH/MM3 (150-450); RED BLOOD COUNT 3.89 MIL/MM3 (4.50-5.90); RED CELL DISTRIBUTION WIDTH 16.5 % (11.6-17.2); WHITE BLOOD COUNT 11.4 TH/MM3 (4.0-11.0)
[2016-04-09 07:29] LABS: BICARBONATE 28.5 MEQ/L (21.0-32.0); POTASSIUM 3.9 MEQ/L (3.5-5.1)
[2016-04-09] MEDS: RESP: ALBUTEROL 2.5 MG/IPRATROPIUM 0.5 MG NEB (SCH) NEB ×3 (07:38→20:42)
[2016-04-09] MEDS: LACTOBACILLUS ACIDOPHILUS TAB PO SCH ×2 (08:34→21:08)
[2016-04-09] MEDS: SODIUM CHLORIDE 0.9% FLUSH 5 ML FLUSH FLUSH SCH ×2 (08:34→21:09)
[2016-04-09] MEDS: guaiFENesin E.R. 600 MG TAB PO SCH ×2 (08:34→21:08)
[2016-04-09] MEDS: predniSONE 20 MG TAB PO SCH (08:35)
[2016-04-09] MEDS: THEOPHYLLINE 200 MG EXTENDED RELEASE CAP PO SCH (08:35)
[2016-04-09] MEDS: FERROUS SULFATE 325 MG (65 MG ELEMENTAL IRON) TAB PO SCH ×3 (08:35→17:36)
[2016-04-09] MEDS: ASPIRIN EC 81 MG TABEC PO SCH (08:35)
[2016-04-09] MEDS: PANTOPRAZOLE SOD 20 MG DELAYED RELEASE TAB PO SCH (08:35)
[2016-04-09] MEDS: ESCITALOPRAM OXALATE 10 MG TAB PO SCH (08:35)
[2016-04-09] MEDS: METOPROLOL TARTRATE 25 MG TAB PO SCH (08:35)
[2016-04-09] MEDS: CLOPIDOGREL 75 MG TAB PO SCH (08:35)
[2016-04-09] MEDS: FUROSEMIDE 20 MG TAB PO SCH (08:35)
--- NOTE | 2016-04-09 09:05 | HHI.PR ---
Subjective Remarks Follow-up COPD exacerbation/acute on chronic respiratory failure/elevated cardiac enzyme 04/05/16-patient seen and examined; report improvement or shortness of breath and denies any chest pain. Afebrile 04/06/16-patient seen and examined; still with shortness of breath but denies any chest pain 04/07/16-patient seen and examined; positive for shortness of breath and purse breathing; denies any chest pain. Patient states he will consider rehabilitation 04/08/16-patient seen and examined, only with expiratory wheezes no other issues. Patient would like to be discharged to [facility] 04/09/16-patient seen and examined.+ Expiratory wheezes and some mild dyspnea associated with activity. Afebrile Objective Vitals Vital Signs Date Time Temp Pulse Resp B/P Pulse Ox O2 Delivery O2 Flow Rate FiO2 04/09/16 08:00 96.4 70 16 121/72 91 04/09/16 07:38 94 Nasal Cannula 3.00 04/09/16 04:00 97.6 64 18 141/80 95 04/09/16 00:00 97.9 82 19 179/82 94 04/08/16 20:00 98.0 77 18 142/67 96 04/08/16 19:51 97 own cpap 4.00 04/08/16 19:15 74 04/08/16 19:00 Nasal Cannula 2.00 04/08/16 16:31 97.3 68 22 146/72 95 04/08/16 12:13 98.1 68 20 124/67 96 04/08/16 09:31 95 Nasal Cannula 3.00 I/O 04/08/16 04/08/16 04/08/16 04/09/16 04/09/16 04/09/16 07:00 15:00 23:00 07:00 15:00 23:00 Intake Total 240 ml 960 ml 480 ml 240 ml Output Total 300 ml Balance -60 ml 960 ml 480 ml 240 ml Intake Oral 240 ml 960 ml 480 ml 240 ml IV Total 0 ml Output Urine Total 300 ml # Voids 3 2 2 # Bowel Movements 0 1 1 1 Result Diagram: 04/09/16 0611 04/09/16 [address] Angiography 03/31/16 0059 Signed Impressions: Service Date/Time: Thursday, March 31, 2016 01:16 - CONCLUSION: The study is negative for pulmonary embolism. Manjit Aguilar MD Chest X-Ray 03/30/16 2243 Signed Impressions: Service Date/Time: Wednesday, March 30, 2016 22:56 - CONCLUSION: The lungs are clear. Manjit Aguilar MD Objective Remarks GENERAL: NAD SKIN: Warm and dry. HEAD: Normocephalic. EYES: No scleral icterus. No injection or drainage. NECK: Supple, trachea midline. No JVD or lymphadenopathy. CARDIOVASCULAR: Regular rate and rhythm without murmurs, gallops, or rubs. RESPIRATORY: Breath sounds equal bilaterally. No accessory muscle use. + expiratory wheezes GASTROINTESTINAL: Abdomen soft, non-tender, nondistended. MUSCULOSKELETAL: No cyanosis, or edema. BACK: Nontender without obvious deformity. No CVA tenderness. A/P Problem List: (1) COPD (chronic obstructive pulmonary disease) ICD Code: J44.9 Status: Acute (2) Elevated troponin I level ICD Code: R79.89 Status: Acute (3) HTN (hypertension) ICD Code: I10 Status: Acute Assessment and Plan 81-year-old male with 1. COPD: Chronic Respiratory Failure w/ Acute Exacerbation and Respiratory Failure requiring BIPAP. Appreciate input from pulmonary medicine, s/p Solu- Medrol, continue with by mouth prednisone, DuoNeb, antibiotics, Singulair, Mucinex. Add Symbicort and Spiriva. Continue BIPAP, wean as tolerated. Keep oxygen saturation above 92%. CTA negative for PE. Patient will need pulmonary rehabilitation upon discharge. However patient is now willing to be discharged to a rehabilitation facility likely [facility] 2. Elevated Trop: ACS ruled out per protocol, appreciate input from cardiology and continue with ASA, Statin, B-stephanie. 3. HTN: Controlled. continue home medications. Monitor BP. 4. DVT Prophylaxis: SCD/Teds. Continue with PT Discharge Planning Likely discharge within the next 24 hours Reinaldo Choe MD Apr 09, 2016 09:05
[2016-04-09] MEDS: TIOTROPIUM BROMIDE 18 MCG INH INH SCH (10:58)
[2016-04-09] MEDS: BUDESONIDE-FORMOTEROL 160/4.5 MCG INHALER INH SCH ×2 (10:58→21:08)
[2016-04-09] MEDS: TERAZOSIN HCL 5 MG CAP PO SCH (21:08)
[2016-04-09] MEDS: ATORVASTATIN 40 MG TAB PO SCH (21:08)
[2016-04-09] MEDS: MONTELUKAST SODIUM 10 MG TAB PO SCH (21:08)
[2016-04-09] MEDS: ZOLPIDEM TARTRATE 5 MG TAB PO PRN (21:12)
[2016-04-10] VITALS (9 sets, daily range): BP systolic 113–137; BP diastolic 63–80; PULSE 60–80; RESP 18–20; TEMP 97.1–98.3; O2SAT 92–97
[2016-04-10] MEDS: ASPIRIN EC 81 MG TABEC PO SCH (08:16)
[2016-04-10] MEDS: CLOPIDOGREL 75 MG TAB PO SCH (08:17)
[2016-04-10] MEDS: guaiFENesin E.R. 600 MG TAB PO SCH ×2 (08:17→19:38)
[2016-04-10] MEDS: PANTOPRAZOLE SOD 20 MG DELAYED RELEASE TAB PO SCH (08:17)
[2016-04-10] MEDS: predniSONE 20 MG TAB PO SCH (08:17)
[2016-04-10] MEDS: THEOPHYLLINE 200 MG EXTENDED RELEASE CAP PO SCH (08:17)
[2016-04-10] MEDS: ESCITALOPRAM OXALATE 10 MG TAB PO SCH (08:18)
[2016-04-10] MEDS: FERROUS SULFATE 325 MG (65 MG ELEMENTAL IRON) TAB PO SCH ×3 (08:18→18:00)
[2016-04-10] MEDS: SODIUM CHLORIDE 0.9% FLUSH 5 ML FLUSH FLUSH SCH ×2 (08:18→19:39)
[2016-04-10] MEDS: FUROSEMIDE 20 MG TAB PO SCH (08:18)
[2016-04-10] MEDS: LACTOBACILLUS ACIDOPHILUS TAB PO SCH ×2 (08:18→19:38)
[2016-04-10] MEDS: METOPROLOL TARTRATE 25 MG TAB PO SCH (08:18)
[2016-04-10] MEDS: BUDESONIDE-FORMOTEROL 160/4.5 MCG INHALER INH SCH ×2 (08:19→19:39)
[2016-04-10] MEDS: TIOTROPIUM BROMIDE 18 MCG INH INH SCH (08:19)
--- NOTE | 2016-04-10 08:32 | HHI.PR ---
Subjective Remarks Follow-up COPD exacerbation/acute on chronic respiratory failure/elevated cardiac enzyme 04/05/16-patient seen and examined; report improvement or shortness of breath and denies any chest pain. Afebrile 04/06/16-patient seen and examined; still with shortness of breath but denies any chest pain 04/07/16-patient seen and examined; positive for shortness of breath and purse breathing; denies any chest pain. Patient states he will consider rehabilitation 04/08/16-patient seen and examined, only with expiratory wheezes no other issues. Patient would like to be discharged to [facility] 04/09/16-patient seen and examined.+ Expiratory wheezes and some mild dyspnea associated with activity. Afebrile 04/10/16-patient seen and examined. He has significant inspiratory wheezes this morning and complains of shortness of breath. Objective Vitals Vital Signs Date Time Temp Pulse Resp B/P Pulse Ox O2 Delivery O2 Flow Rate FiO2 04/10/16 08:15 96 21 04/10/16 08:00 98.3 60 20 133/79 95 04/10/16 04:00 97.5 62 18 137/80 94 04/10/16 00:00 97.8 80 18 113/63 97 04/09/16 20:55 Room Air 04/09/16 20:48 97 Nasal Cannula 2.00 04/09/16 20:00 97.6 70 18 145/84 94 04/09/16 20:00 73 04/09/16 12:00 97.1 57 28 131/70 94 I/O 04/09/16 04/09/16 04/09/16 04/10/16 04/10/16 04/10/16 07:00 15:00 23:00 07:00 15:00 23:00 Intake Total 240 ml 502 ml 360 ml 120 ml Balance 240 ml 502 ml 360 ml 120 ml Intake Oral 240 ml 500 ml 360 ml 120 ml IV Total 2 ml # Voids 2 3 2 1 # Bowel Movements 1 1 0 0 Result Diagram: 04/09/16 0611 04/09/16 0611 Objective Remarks GENERAL: NAD SKIN: Warm and dry. HEAD: Normocephalic. EYES: No scleral icterus. No injection or drainage. NECK: Supple, trachea midline. No JVD or lymphadenopathy. CARDIOVASCULAR: Regular rate and rhythm without murmurs, gallops, or rubs. RESPIRATORY: Breath sounds equal bilaterally. No accessory muscle use. + expiratory wheezes GASTROINTESTINAL: Abdomen soft, non-tender, nondistended. MUSCULOSKELETAL: No cyanosis, or edema. BACK: Nontender without obvious deformity. No CVA tenderness. A/P Problem List: (1) COPD (chronic obstructive pulmonary disease) ICD Code: J44.9 Status: Acute (2) Elevated troponin I level ICD Code: R79.89 Status: Acute (3) HTN (hypertension) ICD Code: I10 Status: Acute Assessment and Plan 81-year-old male with 1. COPD: Chronic Respiratory Failure w/ Acute Exacerbation and Respiratory Failure requiring BIPAP. Appreciate input from pulmonary medicine, s/p Solu- Medrol, continued on mouth prednisone 20 mg daily, DuoNeb, antibiotics, Singulair, Mucinex. Continue with Symbicort and Spiriva. Continue BIPAP, wean as tolerated. Keep oxygen saturation above 92%. CTA negative for PE. Patient is not yet ready for discharge 2. Elevated Trop: ACS ruled out per protocol, appreciate input from cardiology and continue with ASA, Statin, B-stephanie. 3. HTN: Controlled. continue home medications. Monitor BP. 4. DVT Prophylaxis: SCD/Teds. Continue with PT Discharge Planning Likely discharge within the next 24 hours Reinaldo Choe MD Apr 10, 2016 08:32
[2016-04-10] MEDS: RESP: ALBUTEROL 2.5 MG/IPRATROPIUM 0.5 MG NEB (SCH) NEB ×2 (13:02→19:54)
[2016-04-10] MEDS: TERAZOSIN HCL 5 MG CAP PO SCH (19:38)
[2016-04-10] MEDS: MONTELUKAST SODIUM 10 MG TAB PO SCH (19:38)
[2016-04-10] MEDS: ZOLPIDEM TARTRATE 5 MG TAB PO PRN (19:38)
[2016-04-10] MEDS: ATORVASTATIN 40 MG TAB PO SCH (19:38)
[2016-04-11] VITALS (10 sets, daily range): BP systolic 122–145; BP diastolic 60–73; PULSE 65–93; RESP 17–20; TEMP 97.6–98; O2SAT 94–96
[2016-04-11] MEDS: BUDESONIDE-FORMOTEROL 160/4.5 MCG INHALER INH SCH ×2 (07:45→19:59)
[2016-04-11] MEDS: THEOPHYLLINE 200 MG EXTENDED RELEASE CAP PO SCH (07:46)
[2016-04-11] MEDS: TIOTROPIUM BROMIDE 18 MCG INH INH SCH (07:46)
[2016-04-11] MEDS: METOPROLOL TARTRATE 25 MG TAB PO SCH (07:47)
[2016-04-11] MEDS: FUROSEMIDE 20 MG TAB PO SCH (07:47)
[2016-04-11] MEDS: LACTOBACILLUS ACIDOPHILUS TAB PO SCH ×2 (07:47→19:58)
[2016-04-11] MEDS: PANTOPRAZOLE SOD 20 MG DELAYED RELEASE TAB PO SCH (07:47)
[2016-04-11] MEDS: ESCITALOPRAM OXALATE 10 MG TAB PO SCH (07:47)
[2016-04-11] MEDS: ASPIRIN EC 81 MG TABEC PO SCH (07:47)
[2016-04-11] MEDS: FERROUS SULFATE 325 MG (65 MG ELEMENTAL IRON) TAB PO SCH ×4 (07:47→19:58)
[2016-04-11] MEDS: guaiFENesin E.R. 600 MG TAB PO SCH ×2 (07:47→19:58)
[2016-04-11] MEDS: CLOPIDOGREL 75 MG TAB PO SCH (07:47)
[2016-04-11] MEDS: SODIUM CHLORIDE 0.9% FLUSH 5 ML FLUSH FLUSH SCH ×2 (07:48→19:59)
[2016-04-11] MEDS: predniSONE 20 MG TAB PO SCH ×2 (07:49→19:59)
[2016-04-11] MEDS: RESP: ALBUTEROL 2.5 MG/IPRATROPIUM 0.5 MG NEB (SCH) NEB ×3 (09:14→20:12)
--- NOTE | 2016-04-11 10:30 | HHI.PR ---
Subjective Remarks Follow-up COPD exacerbation/acute on chronic respiratory failure/elevated cardiac enzyme 04/05/16-patient seen and examined; report improvement or shortness of breath and denies any chest pain. Afebrile 04/06/16-patient seen and examined; still with shortness of breath but denies any chest pain 04/07/16-patient seen and examined; positive for shortness of breath and purse breathing; denies any chest pain. Patient states he will consider rehabilitation 04/08/16-patient seen and examined, only with expiratory wheezes no other issues. Patient would like to be discharged to [facility] 04/09/16-patient seen and examined.+ Expiratory wheezes and some mild dyspnea associated with activity. Afebrile 04/10/16-patient seen and examined. He has significant inspiratory wheezes this morning and complains of shortness of breath. 04/11/16-patient seen and examined, patient was significant shortness of breath Objective Vitals Vital Signs Date Time Temp Pulse Resp B/P Pulse Ox O2 Delivery O2 Flow Rate FiO2 04/11/16 09:14 95 21 04/11/16 08:00 96 Room Air 04/11/16 08:00 97.8 65 20 125/63 94 04/11/16 04:36 97.8 67 20 142/73 94 04/11/16 00:20 97.6 73 20 122/60 95 04/10/16 20:30 Nasal Cannula 2.00 04/10/16 20:30 79 04/10/16 20:00 98.2 78 20 132/69 96 04/10/16 19:56 95 21 04/10/16 16:00 97.3 73 20 120/63 92 04/10/16 12:00 97.1 63 20 128/69 93 I/O 04/10/16 04/10/16 04/10/16 04/11/16 04/11/16 04/11/16 07:00 15:00 23:00 07:00 15:00 23:00 Intake Total 120 ml 600 ml 240 ml 120 ml Balance 120 ml 600 ml 240 ml 120 ml Intake Oral 120 ml 600 ml 240 ml 120 ml # Voids 1 2 2 1 # Bowel Movements 0 Result Diagram: 04/09/16 0611 04/09/16 [address] Angiography 03/31/16 0059 Signed Impressions: Service Date/Time: Thursday, March 31, 2016 01:16 - CONCLUSION: The study is negative for pulmonary embolism. Manjit Aguilar MD Chest X-Ray 03/30/16 2243 Signed Impressions: Service Date/Time: Wednesday, March 30, 2016 22:56 - CONCLUSION: The lungs are clear. Manjit Aguilar MD Objective Remarks GENERAL: NAD SKIN: Warm and dry. HEAD: Normocephalic. EYES: No scleral icterus. No injection or drainage. NECK: Supple, trachea midline. No JVD or lymphadenopathy. CARDIOVASCULAR: Regular rate and rhythm without murmurs, gallops, or rubs. RESPIRATORY: Breath sounds equal bilaterally. No accessory muscle use. + expiratory wheezes GASTROINTESTINAL: Abdomen soft, non-tender, nondistended. MUSCULOSKELETAL: No cyanosis, or edema. BACK: Nontender without obvious deformity. No CVA tenderness. A/P Problem List: (1) COPD (chronic obstructive pulmonary disease) ICD Code: J44.9 Status: Acute (2) Elevated troponin I level ICD Code: R79.89 Status: Acute (3) HTN (hypertension) ICD Code: I10 Status: Acute Assessment and Plan 81-year-old male with 1. COPD exacerbation: Chronic Respiratory Failure w/ Acute Exacerbation and Respiratory Failure requiring BIPAP. Appreciate input from pulmonary medicine, s/p Solu-Medrol, change prednisone to 20 mg BID, DuoNeb, antibiotics, Singulair , Mucinex. Continue with Symbicort and Spiriva. Continue BIPAP, wean as tolerated. Keep oxygen saturation above 92%. CTA negative for PE. Patient is not yet ready for discharge 2. Elevated Trop: ACS ruled out per protocol, appreciate input from cardiology and continue with ASA, Statin, B-stephanie. 3. HTN: Controlled. continue home medications. Monitor BP. 4. DVT Prophylaxis: SCD/Teds. Continue with PT Discharge Planning Likely discharge within the next 24 hours Reinaldo Choe MD Apr 11, 2016 10:30
[2016-04-11] MEDS: MONTELUKAST SODIUM 10 MG TAB PO SCH (19:58)
[2016-04-11] MEDS: TERAZOSIN HCL 5 MG CAP PO SCH (19:58)
[2016-04-11] MEDS: ZOLPIDEM TARTRATE 5 MG TAB PO PRN (19:58)
[2016-04-11] MEDS: ATORVASTATIN 40 MG TAB PO SCH (19:59)
[2016-04-12] VITALS (9 sets, daily range): BP systolic 138–169; BP diastolic 62–83; PULSE 68–86; RESP 18–22; TEMP 97.9–98.4; O2SAT 93–97
[2016-04-12] MEDS: RESP: ALBUTEROL 2.5 MG/IPRATROPIUM 0.5 MG NEB (SCH) NEB ×4 (07:56→20:48)
--- NOTE | 2016-04-12 08:42 | HHI.PR ---
Subjective Remarks Follow-up COPD exacerbation/acute on chronic respiratory failure/elevated cardiac enzyme 04/05/16-patient seen and examined; report improvement or shortness of breath and denies any chest pain. Afebrile 04/06/16-patient seen and examined; still with shortness of breath but denies any chest pain 04/07/16-patient seen and examined; positive for shortness of breath and purse breathing; denies any chest pain. Patient states he will consider rehabilitation 04/08/16-patient seen and examined, only with expiratory wheezes no other issues. Patient would like to be discharged to [facility] 04/09/16-patient seen and examined.+ Expiratory wheezes and some mild dyspnea associated with activity. Afebrile 04/10/16-patient seen and examined. He has significant inspiratory wheezes this morning and complains of shortness of breath. 04/11/16-patient seen and examined, patient was significant shortness of breath 04/12/16-patient seen and examined; he reports significant shortness of breath or wheezing despite the fact that he just received breathing treatment this morning. Objective Vitals Vital Signs Date Time Temp Pulse Resp B/P Pulse Ox O2 Delivery O2 Flow Rate FiO2 04/12/16 07:56 97 Nasal Cannula 2.00 04/12/16 04:00 98.0 68 19 169/83 93 04/12/16 00:00 98.4 75 18 146/80 96 04/11/16 20:30 69 04/11/16 20:30 Nasal Cannula 2.00 04/11/16 20:12 96 21 04/11/16 20:00 98.0 67 17 145/71 96 04/11/16 16:00 97.9 70 20 138/72 95 04/11/16 12:00 97.8 68 20 144/70 96 04/11/16 09:14 95 21 04/11/16 09:00 93 I/O 04/11/16 04/11/16 04/11/16 04/12/16 04/12/16 04/12/16 07:00 15:00 23:00 07:00 15:00 23:00 Intake Total 120 ml 840 ml 360 ml 240 ml Output Total 575 ml Balance 120 ml 265 ml 360 ml 240 ml Intake Oral 120 ml 840 ml 360 ml 240 ml Output Urine Total 575 ml # Voids 1 1 1 1 # Bowel Movements 1 0 0 Result Diagram: 04/09/1661004/09/16610 Objective Remarks GENERAL: NAD SKIN: Warm and dry. HEAD: Normocephalic. EYES: No scleral icterus. No injection or drainage. NECK: Supple, trachea midline. No JVD or lymphadenopathy. CARDIOVASCULAR: Regular rate and rhythm without murmurs, gallops, or rubs. RESPIRATORY: Breath sounds equal bilaterally. No accessory muscle use. + expiratory wheezes GASTROINTESTINAL: Abdomen soft, non-tender, nondistended. MUSCULOSKELETAL: No cyanosis, or edema. BACK: Nontender without obvious deformity. No CVA tenderness. A/P Problem List: (1) COPD (chronic obstructive pulmonary disease) ICD Code: J44.9 Status: Acute (2) Elevated troponin I level ICD Code: R79.89 Status: Acute (3) HTN (hypertension) ICD Code: I10 Status: Acute Assessment and Plan 81-year-old male with 1. COPD exacerbation: Chronic Respiratory Failure w/ Acute Exacerbation and Respiratory Failure requiring BIPAP. Appreciate input from pulmonary medicine, s/p Solu-Medrol, on prednisone 20 mg BID, DuoNeb and change to every 4 schedule , continue when necessary, antibiotics, Singulair, Mucinex. Continue with Symbicort and Spiriva. Keep oxygen saturation above 92%. CTA negative for PE. Patient is not yet ready for discharge as of today 2. Elevated Trop: ACS ruled out per protocol, appreciate input from cardiology and continue with ASA, Statin, B-stephanie. 3. HTN: Controlled. continue home medications. Monitor BP. 4. DVT Prophylaxis: SCD/Teds. Continue with PT Discharge Planning Likely discharge within the next 24 hours Reinaldo Choe MD Apr 12, 2016 08:41
[2016-04-12] MEDS: SODIUM CHLORIDE 0.9% FLUSH 5 ML FLUSH FLUSH SCH ×2 (09:00→20:40)
[2016-04-12] MEDS: BUDESONIDE-FORMOTEROL 160/4.5 MCG INHALER INH SCH ×2 (09:22→20:40)
[2016-04-12] MEDS: FUROSEMIDE 20 MG TAB PO SCH (09:22)
[2016-04-12] MEDS: ASPIRIN EC 81 MG TABEC PO SCH (09:22)
[2016-04-12] MEDS: TIOTROPIUM BROMIDE 18 MCG INH INH SCH (09:22)
[2016-04-12] MEDS: CLOPIDOGREL 75 MG TAB PO SCH (09:23)
[2016-04-12] MEDS: METOPROLOL TARTRATE 25 MG TAB PO SCH (09:23)
[2016-04-12] MEDS: LACTOBACILLUS ACIDOPHILUS TAB PO SCH ×2 (09:23→20:35)
[2016-04-12] MEDS: THEOPHYLLINE 200 MG EXTENDED RELEASE CAP PO SCH (09:23)
[2016-04-12] MEDS: predniSONE 20 MG TAB PO SCH ×2 (09:24→20:35)
[2016-04-12] MEDS: guaiFENesin E.R. 600 MG TAB PO SCH ×2 (09:24→20:35)
[2016-04-12] MEDS: PANTOPRAZOLE SOD 20 MG DELAYED RELEASE TAB PO SCH (09:24)
[2016-04-12] MEDS: ESCITALOPRAM OXALATE 10 MG TAB PO SCH (09:24)
[2016-04-12] MEDS: FERROUS SULFATE 325 MG (65 MG ELEMENTAL IRON) TAB PO SCH ×2 (11:35→17:10)
[2016-04-12] MEDS: MONTELUKAST SODIUM 10 MG TAB PO SCH (20:35)
[2016-04-12] MEDS: TERAZOSIN HCL 5 MG CAP PO SCH (20:35)
[2016-04-12] MEDS: ATORVASTATIN 40 MG TAB PO SCH (20:35)
[2016-04-12] MEDS: ZOLPIDEM TARTRATE 5 MG TAB PO PRN (20:39)
[2016-04-13 00:10] VITALS: BP 152/80; PULSE 71; RESP 20; TEMP 98.7; O2SAT 97
[2016-04-13 04:00] VITALS: BP 145/75; PULSE 66; RESP 20; TEMP 98.1; O2SAT 96
[2016-04-13 07:52] VITALS: O2SAT 98
[2016-04-13] MEDS: RESP: ALBUTEROL 2.5 MG/IPRATROPIUM 0.5 MG NEB (SCH) NEB ×2 (07:52→11:27)
[2016-04-13 08:00] VITALS: BP 127/80; PULSE 67; RESP 20; TEMP 97.6; O2SAT 98
[2016-04-13 08:23] VITALS: PULSE 71
[2016-04-13] MEDS: SODIUM CHLORIDE 0.9% FLUSH 5 ML FLUSH FLUSH SCH (09:11)
[2016-04-13] MEDS: TIOTROPIUM BROMIDE 18 MCG INH INH SCH (09:11)
[2016-04-13] MEDS: BUDESONIDE-FORMOTEROL 160/4.5 MCG INHALER INH SCH (09:11)
[2016-04-13] MEDS: THEOPHYLLINE 200 MG EXTENDED RELEASE CAP PO SCH (09:12)
[2016-04-13] MEDS: FERROUS SULFATE 325 MG (65 MG ELEMENTAL IRON) TAB PO SCH ×2 (09:12→12:39)
[2016-04-13] MEDS: CLOPIDOGREL 75 MG TAB PO SCH (09:12)
[2016-04-13] MEDS: guaiFENesin E.R. 600 MG TAB PO SCH (09:12)
[2016-04-13] MEDS: ESCITALOPRAM OXALATE 10 MG TAB PO SCH (09:13)
[2016-04-13] MEDS: FUROSEMIDE 20 MG TAB PO SCH (09:13)
[2016-04-13] MEDS: predniSONE 20 MG TAB PO SCH (09:13)
[2016-04-13] MEDS: ASPIRIN EC 81 MG TABEC PO SCH (09:13)
[2016-04-13] MEDS: LACTOBACILLUS ACIDOPHILUS TAB PO SCH (09:13)
[2016-04-13] MEDS: PANTOPRAZOLE SOD 20 MG DELAYED RELEASE TAB PO SCH (09:13)
[2016-04-13] MEDS: METOPROLOL TARTRATE 25 MG TAB PO SCH (09:14)
--- NOTE | 2016-04-13 10:52 | HHI.PR ---
Subjective Remarks Follow-up COPD exacerbation/acute on chronic respiratory failure/elevated cardiac enzyme 04/05/16-patient seen and examined; report improvement or shortness of breath and denies any chest pain. Afebrile 04/06/16-patient seen and examined; still with shortness of breath but denies any chest pain 04/07/16-patient seen and examined; positive for shortness of breath and purse breathing; denies any chest pain. Patient states he will consider rehabilitation 04/08/16-patient seen and examined, only with expiratory wheezes no other issues. Patient would like to be discharged to [facility] 04/09/16-patient seen and examined.+ Expiratory wheezes and some mild dyspnea associated with activity. Afebrile 04/10/16-patient seen and examined. He has significant inspiratory wheezes this morning and complains of shortness of breath. 04/11/16-patient seen and examined, patient was significant shortness of breath 04/12/16-patient seen and examined; he reports significant shortness of breath or wheezing despite the fact that he just received breathing treatment this morning. 04/13/16-patient seen and examined, reports some improvements of shortness of breath as well as wheezing. Afebrile. Objective Vitals Vital Signs Date Time Temp Pulse Resp B/P Pulse Ox O2 Delivery O2 Flow Rate FiO2 04/13/16 08:00 97.6 67 20 127/80 98 04/13/16 07:52 98 Nasal Cannula 2.50 04/13/16 04:00 98.1 66 20 145/75 96 04/13/16 00:10 98.7 71 20 152/80 97 04/12/16 20:49 97 HOME CPAP 3.00 04/12/16 20:00 Nasal Cannula 2.00 04/12/16 20:00 97.9 74 18 142/67 95 04/12/16 20:00 73 04/12/16 16:00 98.1 73 20 138/74 94 04/12/16 12:00 97.9 69 22 139/73 97 I/O 04/12/16 04/12/16 04/12/16 04/13/16 04/13/16 04/13/16 07:00 15:00 23:00 07:00 15:00 23:00 Intake Total 240 ml 600 ml 240 ml 240 ml Output Total 325 ml 450 ml Balance 240 ml 275 ml -210 ml 240 ml Intake Oral 240 ml 600 ml 240 ml 240 ml Output Urine Total 325 ml 450 ml # Voids 1 2 3 # Bowel Movements 0 1 Result Diagram: 04/09/16 0611 04/09/16 [address] Angiography 03/31/16 0059 Signed Impressions: Service Date/Time: Thursday, March 31, 2016 01:16 - CONCLUSION: The study is negative for pulmonary embolism. Manjit Aguilar MD Chest X-Ray 03/30/16 2243 Signed Impressions: Service Date/Time: Wednesday, March 30, 2016 22:56 - CONCLUSION: The lungs are clear. Manjit Aguilar MD Objective Remarks GENERAL: NAD SKIN: Warm and dry. HEAD: Normocephalic. EYES: No scleral icterus. No injection or drainage. NECK: Supple, trachea midline. No JVD or lymphadenopathy. CARDIOVASCULAR: Regular rate and rhythm without murmurs, gallops, or rubs. RESPIRATORY: Breath sounds equal bilaterally. No accessory muscle use. + expiratory wheezes GASTROINTESTINAL: Abdomen soft, non-tender, nondistended. MUSCULOSKELETAL: No cyanosis, or edema. BACK: Nontender without obvious deformity. No CVA tenderness. Procedures none A/P Problem List: (1) Acute chronic obstructive pulmonary disease with respiratory failure ICD Code: J96.00 Status: Acute (2) COPD (chronic obstructive pulmonary disease) ICD Code: J44.9 Status: Acute (3) Elevated troponin I level ICD Code: R79.89 Status: Acute (4) HTN (hypertension) ICD Code: I10 Status: Acute Assessment and Plan 81-year-old male with 1. COPD exacerbation: Chronic Respiratory Failure w/ Acute Exacerbation and Respiratory Failure requiring BIPAP. Appreciate input from pulmonary medicine, s/p Solu-Medrol, on prednisone 20 mg BID, DuoNeb every 4 schedule, continue when necessary, antibiotics, Singulair, Mucinex. Continue with Symbicort and Spiriva. Keep oxygen saturation above 92%. CTA negative for PE. 2. Elevated Trop: ACS ruled out per protocol, appreciate input from cardiology and continue with ASA, Statin, B-stephanie. 3. HTN: Controlled. continue home medications. Monitor BP. 4. DVT Prophylaxis: SCD/Teds. Continue with PT Discharge Planning Likely discharge within the next 24 hours Pontey,Reinaldo MD Apr 13, 2016 10:52
[2016-04-13] MEDS ORDERED: SPIRCAP INH (10:58)
[2016-04-13] MEDS ORDERED: AMBI5TAB PO (10:58)
[2016-04-13] MEDS ORDERED: IPRA17I INH (10:58)
[2016-04-13] MEDS ORDERED: PRED20 PO (10:58)
--- NOTE | 2016-04-13 11:03 | HHI.DS ---
Discharge Summary Admission Date Mar 31, 2016 at 02:39 Discharge Date: Apr 13, 2016 Admitting Diagnosis COPD/Dyspnea, Tn 0.10 (1) Acute chronic obstructive pulmonary disease with respiratory failure ICD Code: J96.00 (2) COPD (chronic obstructive pulmonary disease) ICD Code: J44.9 (3) Elevated troponin I level ICD Code: R79.89 (4) HTN (hypertension) ICD Code: I10 Procedures none Brief History - From Admission This is an 81-year-old male with PMH of COPD, A. fib, CAD and BPH who came to the ER with complaints of SOB and chest tightness x2 days. Denies fever, chills or cough. Took NTG x1 w/ improvement in symptoms. On arrival, O2 sat 90 % on RA, BP 156/70, HR 108, Temp 98.9. Was placed on 4L NC w/ O2 sat 93%, however while in ER had progressive SOB w/ hypoxia and started on BIPAP. Currently O2 sat 97% on 60% FIO2. ABG w/ pH 7.42, PCO2 36, PO2 159. WBC 14.9. Chemistry essentially at baseline. His CPK 383. Troponin 0.10. CXR with no acute findings. D-dimer elevated, CTA Pulm negative for PE. S/p Lasix, DuoNeb , MS and ASA in ER. CBC/BMP: 04/09/16 0611 04/09/16 [address] Angiography 03/31/16 0059 Signed Impressions: Service Date/Time: Thursday, March 31, 2016 01:16 - CONCLUSION: The study is negative for pulmonary embolism. Manjit Aguilar MD Chest X-Ray 03/30/16 5405 Signed Impressions: Service Date/Time: Wednesday, March 30, 2016 22:56 - CONCLUSION: The lungs are clear. Manjit Aguilar MD PE at Discharge GENERAL: NAD SKIN: Warm and dry. HEAD: Normocephalic. EYES: No scleral icterus. No injection or drainage. NECK: Supple, trachea midline. No JVD or lymphadenopathy. CARDIOVASCULAR: Regular rate and rhythm without murmurs, gallops, or rubs. RESPIRATORY: Breath sounds equal bilaterally. No accessory muscle use. + expiratory wheezes GASTROINTESTINAL: Abdomen soft, non-tender, nondistended. MUSCULOSKELETAL: No cyanosis, or edema. BACK: Nontender without obvious deformity. No CVA tenderness. Hospital Course Patient was admitted secondary to acute on chronic COPD with respiratory failure which he was started on IV Solu-Medrol, antibiotic, bronchodilator, long-acting as well as short-acting which were adjusted accordingly, oxygen saturation ABOVE 92% and patient was provided BiPAP. Pulmonary medicine was consulted. Patient was switched off Solu-Medrol and placed on by mouth prednisone which was adjusted accordingly days on patient's symptoms. Secondary to elevated cardiac enzyme, cardiology was consulted however patient was continued on medical management. His home medications were resumed for CAD as well as other chronic medical conditions. All electrolyte abnormalities were corrected accordingly. PT was consulted. DVT and GI prophylaxis were provided. Patient's condition improved prior to discharge vitals remained stable Pt Condition on Discharge: Stable Discharge Disposition: Discharge to SNF Discharge Time: > 30 minutes Discharge Instructions DIET: Follow Instructions for: Heart Healthy Diet Activities you can perform: Regular-No Restrictions Follow up Referrals: PCP Follow-up - 2-3 Days Pulmonology New Medications: Ipratropium HFA 12.9 GM Inh (Atrovent HFA 12.9 GM Inh) 17 Mcg/Act Aer 2 PUFF INH QID Breathing Treatment #1 Ref 0 INHALER Prednisone (Prednisone) 20 Mg Tab 20 MG PO BID Breathing Treatment #20 TAB Tiotropium Inh (Spiriva Handihaler) 18 Mcg Cap 18 MCG INH DAILY Breathing Treatment #30 CAP Zolpidem (Ambien) 5 Mg Tab 5 MG PO HS PRN SLEEP #10 TAB Continued Medications: Aspirin (Aspirin) 81 Mg Tabdr 81 MG PO DAILY TAB Atorvastatin (Atorvastatin) 40 Mg Tab 40 MG PO HS Cholesterol Management #30 Ref 0 TAB Clopidogrel (Clopidogrel) 75 Mg Tab 75 MG PO DAILY Blood Clot Prevention #30 Ref 0 TAB Escitalopram (Escitalopram) 10 Mg Tab 10 MG PO DAILY #30 Ref 0 TAB Ferrous Sulfate (Ferrous Sulfate) 325 Mg Tab 325 MG PO TID Nutritional Supplement #30 Ref 0 TAB Furosemide (Furosemide) 20 Mg Tab 20 MG PO DAILY #30 Ref 0 TAB Metoprolol Tartrate (Metoprolol Tartrate) 25 Mg Tab 12.5 MG PO DAILY #60 Ref 0 TAB Mometasone 120 Act Inh (Asmanex 120 Act Twisthaler) 220 Mcg/Act Inh 2 PUFF INH BID Asthma Management #1 Ref 0 INHALER Montelukast (Montelukast) 10 Mg Tab 10 MG PO HS #30 Ref 0 TAB Omeprazole (Omeprazole) 20 Mg Tab 20 MG PO DAILY #30 Ref 0 TAB Potassium Chloride ER (Potassium Chloride CR) 10 Meq Tab 20 MEQ PO DAILY TAB Terazosin (Terazosin) 5 Mg Cap 5 MG PO HS #30 Ref 0 CAP Theophylline ER 24 HR (Theophylline ER 24 HR) 400 Mg Tab 400 MG PO DAILY #30 Ref 0 TAB Tiotropium-Olodaterol Inh (Stiolto Respimat Inh) 2.5-2.5 Mcg/Act Aero 2 PUFF INH DAILY COPD #1 Ref 0 INHALER Discontinued Medications: Prednisone (Prednisone) 10 Mg Tab 10 MG PO DAILY Ref 0 TAB Reinaldo Choe MD Apr 13, 2016 11:03
[2016-04-13 11:41] VITALS: BP 122/70; PULSE 63; RESP 20; TEMP 97.5; O2SAT 95
--- NOTE | 2016-04-19 07:09 | MD ---
cc: Noman QUIROS ADMISSION DATE: 03/31/2016 DISCHARGE DATE: 04/13/2016 Mr. Cedillo is an 81-year-old white male well known to me with severe steroid dependent asthma/COPD. He presented with pneumonia and acute respiratory distress on March 31 and is being planned for discharge tomorrow. He will be going to rehab for a transition home. Today he is up ambulating comfortable, afebrile, pulse is 90, respirations 18, blood pressure 125/63, room air saturation 95%. HEAD, EYES, EARS, NOSE, AND THROAT: Sclerae anicteric. NECK: Neck veins are flat. CHEST: Some minimal wheezes. No congestion. CARDIAC: Regular rhythm. EXTREMITIES: No edema or cyanosis. He did well through the hospital course. We did have his arc cutter see him who felt that his heart status was stable. He was on BiPap for several days and is now back to using his C-PAP at night. CURRENT MEDICATIONS 1. He is on his nebulized aerosol treatments three times a day and p.r.n. 2. He is on Symbicort 160 two puffs twice a day 3. 20 mg of Lasix 20 mg 4. 20 mg of Prednisone twice a day 5. Theophylline 400 mg a day with a level that was not high 6. Spiriva PLAN The plan is for transition through [facility] to [facility]. They will call my office next week and when he leaves the nursing facility, I will see him back in the office. He is much improved when compared to admission, but hopefully with some additional rehabilitation will regain his strength and functional status as well. One other note that came up during this admission was the possibility that he was drinking excessively, particularly beer. He has agreed not to drink any alcohol for the next month as this may have been an additional factor in the decline of his health. MD SATYA Millard/[place] /1:11 PM /6:56 AM
== END 2016-04-13 14:10 | DRG 190 ==
LOC: NEPC 22:29 → NEDA 03-31 02:39 → NEDH 03-31 06:58 → HIME 03-31 14:40 → N04B 04-06 12:22
PROVIDERS: ADMIT Hospitalist; ATTEND Hospitalist
DX: J44.1 Chronic obstructive pulmonary disease with (acute) exacerbation (principal); J96.21 Acute and chronic respiratory failure with hypoxia; I48.91 Unspecified atrial fibrillation; K22.70 Barrett's esophagus without dysplasia; I25.810 Atherosclerosis of coronary artery bypass graft(s) without angina pectoris; I10 Essential (primary) hypertension; E78.5 Hyperlipidemia, unspecified; E74.39 Other disorders of intestinal carbohydrate absorption; G47.33 Obstructive sleep apnea (adult) (pediatric); I25.2 Old myocardial infarction; J45.909 Unspecified asthma, uncomplicated; K21.9 Gastro-esophageal reflux disease without esophagitis; M19.90 Unspecified osteoarthritis, unspecified site; N40.0 Benign prostatic hyperplasia without lower urinary tract symptoms; Z79.02 Long term (current) use of antithrombotics/antiplatelets; Z79.82 Long term (current) use of aspirin; Z86.711 Personal history of pulmonary embolism; Z87.891 Personal history of nicotine dependence; Z90.81 Acquired absence of spleen; Z95.2 Presence of prosthetic heart valve; Z95.5 Presence of coronary angioplasty implant and graft; Z95.1 Presence of aortocoronary bypass graft
CPT/HCPCS: 36600; 71010; 71275; 80048; 80053; 80198; 82550; 82552; 82805; 83735; 83880; 84484; 85025; 85379; 85610; 85730; 87040; 87641; 87804; 93005; 94002; 94003; 94640; 94664; 96374; J1940; J1956; J2270; J2920; J7512; J7613; Q9967

== ENCOUNTER 2016-05-16 09:47 | Emergency (ER) | payer MEDICARE ==
[~2016-05-16] VITALS: Ht 180.3 cm; Wt 95.0 kg
[~2016-05-16 09:47] MED LIST changes: -ALBU0.086 INH; +AMBI5TAB PO; +ASPI1TAB69 PO; -ATOR40TA PO; +ATOR40TA16 PO; +CLOP75TA PO; -COUM2TAB PO; -COUM3TAB PO; -DUONI NEB; +ESCI10TA PO; +FERR325T PO; +FURO20TA PO; +IPRA17I INH; +METO25TA3 PO; +MONT10TA4 PO; +OMEP20TA PO; -OMEP20TA39 PO; +POTA10TA8 PO; -POTA20IN3 PO; -PRED10 PO; +PRED20 PO; -SM A81CH PO; +SPIRCAP INH; -THEO200T11 PO; +THEO400T2 PO; +TIOT1AER INH; -TOPR25TA2 PO; -TORS1TAB12 PO
[2016-05-16 09:50] VITALS: BP 112/59; PULSE 76; RESP 14; TEMP 98; O2SAT 93
[2016-05-16] MEDS ORDERED: SODIUM CHLOR 0.9% 1000 ML INJ 1,000 ML IV SCH (10:00)
[2016-05-16] MEDS ORDERED: SODIUM CHLORIDE 0.9% FLUSH 5 ML FLUSH IVF PRN (10:00)
[2016-05-16] MEDS ORDERED: AMBI5TAB PO (10:06)
[2016-05-16] MEDS ORDERED: MIRA33504 PO (10:06)
[2016-05-16] MEDS ORDERED: DIFFCHW PO (10:06)
[2016-05-16] MEDS ORDERED: SINE25TA PO (10:06)
[2016-05-16] MEDS ORDERED: PRED20 PO (10:06)
[2016-05-16] MEDS ORDERED: SM M PO (10:06)
[2016-05-16] MEDS ORDERED: TAMS0.4C4 PO (10:06)
[2016-05-16] MEDS ORDERED: MILKSUS PO (10:06)
[2016-05-16] MEDS ORDERED: MULT1TAB84 PO (10:06)
[2016-05-16 10:38] LABS: AUTOMATED NEUTROPHIL # 8.6 TH/MM3 (1.8-7.7); BASOPHIL # 0.1 TH/MM3 (0-0.2); BASOPHIL % 0.8 % (0.0-2.0); EOSINOPHIL # 0.1 TH/MM3 (0-0.4); HEMATOCRIT 35.3 % (39.0-51.0); HEMO FLAGS DIFF FINAL; LYMPH % 9.6 % (9.0-44.0); MEAN CELL VOLUME 88.9 FL (80.0-100.0); MEAN CORPUSCULAR HEMOGLOBIN 28.7 PG (27.0-34.0); MEAN CORPUSCULAR HGB CONC 32.2 % (32.0-36.0); MONO % 7.9 % (0.0-8.0); NEUT % 80.7 % (16.0-70.0); PLATELET COUNT 219 TH/MM3 (150-450); RED BLOOD COUNT 3.97 MIL/MM3 (4.50-5.90); WHITE BLOOD COUNT 10.6 TH/MM3 (4.0-11.0)
[2016-05-16 10:48] LABS: APTT (PATIENT) 21.2 SEC (24.3-30.1)
[2016-05-16 10:55] LABS: ANION GAP 9 MEQ/L (5-15); AST (GOT) 16 U/L (15-37); BICARBONATE 24.2 MEQ/L (21.0-32.0); BLOOD UREA NITROGEN 15 MG/DL (7-18); CHLORIDE 107 MEQ/L (98-107); GLOMERULAR FILTRATION RATE 81 ML/MIN (>89); POTASSIUM 3.6 MEQ/L (3.5-5.1); SODIUM (NA) 140 MEQ/L (136-145)
--- NOTE | 2016-05-16 10:57 | RADRPT ---
EXAM DATE/TIME: 05/16/2016 10:04 [facility] COMPARISON: CHEST SINGLE AP, March 30, 2016, 22:56. INDICATIONS: Short of breath. MEDICAL HISTORY: Chronic obstructive pulmonary disease. Congestive heart failure. SURGICAL HISTORY: CABG x2, stents ENCOUNTER: Initial ACUITY: 1 day PAIN SCORE: 0/10 LOCATION: Bilateral chest FINDINGS: Sternal wires from previous median sternotomy are noted. Heart is minimally enlarged, pulmonary vasc ularity is normal. There is no alveolar consolidation, pleural effusion or pneumothorax. CONCLUSION: Compensated cardiomegaly otherwise negative. Deo Sesay MD FACR on May 16, 2016 at 10:41 Board Certified Radiologist. This report was verified electronically.
[2016-05-16 10:59] LABS: ALKALINE PHOSPHATASE 56 U/L (45-117); ALT (GPT) 11 U/L (12-78); TOTAL BILIRUBIN ADULT 0.4 MG/DL (0.2-1.0)
[2016-05-16 11:00] VITALS: BP 108/54; PULSE 78; RESP 16; O2SAT 98
[2016-05-16] MEDS ORDERED: IOHEXOL 350 MG/ML 10 ML VIAL (for RAD DIAG) IV ONE (11:15)
--- NOTE | 2016-05-16 11:39 | RADRPT ---
EXAM DATE/TIME: 05/16/2016 11:09 [facility] COMPARISON: CT PULMONARY ANGIOGRAM, March 31, 2016, 1:16. INDICATIONS: Shortness of breath, dizziness, hypotension; evaluate for embolism. IV CONTRAST: 50 cc Omnipaque 350 (iohexol) IV RADIATION DOSE: 15.09 CTDIvol (mGy) MEDICAL HISTORY: Cardiovascular disease. Hypertension. Hernia, hiatal. Reflux, Mcgee's esophagus. SURGICAL HISTORY: Splenectomy. Cholecystectomy. ENCOUNTER: Initial ACUITY: 1 day PAIN SCALE: 0/10 LOCATION: Chest TECHNIQUE: Volumetric scanning of the chest was performed using a pulmonary embolism protocol MIP images were re constructed. Using automated exposure control and adjustment of the mA and/or kV according to patien t size, radiation dose was kept as low as reasonably achievable to obtain optimal diagnostic quality images. FINDINGS: Mild bibasilar parenchymal changes are noted. there is mild interstitial prominence. Heart is enlarged with sternal wires from previous bypass. There is no pericardial effusion. There is good visualization of central pulmonary vessels. There is no evidence for central pulmonary emboli. There is no radiographically significant mediastinal adenopathy. CONCLUSION: 1. Cardiomegaly. 2. There is no evidence for central pulmonary emboli. Deo Sesay MD FACR on May 16, 2016 at 11:26 Board Certified Radiologist. This report was verified electronically.
--- NOTE | 2016-05-16 12:01 | PD ---
HPI Chief Complaint: Dizziness Time Seen by Provider: 09:50 Travel History International Travel<30 days: No Contact w/Intl Traveler<30days: No Traveled to known affect area: No History of Present Illness HPI This is an 81-year-old gentleman with a history of COPD and coronary artery disease with congestive heart failure who presents to the emergency department having been packing to leave his rehabilitation this morning when he started to feel dizzy. He says he felt lightheaded and he thought he was given a pass out and not make it to the nurses station. The symptoms lasted for several minutes and subsided when he sat down. He went to stand up again and he felt the symptoms again. They resolved when he was seated. The halfway took his blood pressure at the time of the incident and it was in the 70s systolic. He denies any chest pain, trouble breathing or diaphoresis at the time. He is on Lasix 20 mg a day. He was recently hospitalized in the setting of a COPD exacerbation. He also has a history of pulmonary emboli. He says he was on Coumadin for one year but then taken off because he had no signs of residual symptoms. PFSH Past Medical History Hx Anticoagulant Therapy: Yes (PLAVIX) AAA: Yes Arthritis: Yes Asthma: No Atrial Fibrillation: Yes Autoimmune Disease: No Blood Disorders: No Anxiety: Yes Depression: No Heart Rhythm Problems: No Cancer: No Cardiac Catheterization: No Cardiovascular Problems: Yes High Cholesterol: Yes Chemotherapy: No Chest Pain: Yes Congestive Heart Failure: Yes COPD: Yes Cerebrovascular Accident: No Coronary Artery Disease: Yes Diabetes: No Diminished Hearing: Yes (HEARING AIDS ) Diverticulitis: Yes Endocrine: No Gastrointestinal Disorders: Yes (Mcgee's Esophagus) GERD: Yes Glaucoma: No Genitourinary: Yes (hemorrhoids, BPH) Headaches: No Hepatitis: No Hiatal Hernia: Yes Hypertension: Yes Immune Disorder: No Implanted Vascular Access Dvce: No Kidney Stones: No Musculoskeletal: Yes (right rotator cuff problems, BACK) Neurologic: Yes (positional vertigo; spinal stenosis) Psychiatric: No Reproductive: No Respiratory: Yes Immunizations Current: Yes Migraines: No Myocardial Infarction: Yes Radiation Therapy: No Renal Failure: No Seizures: No Sickle Cell Disease: No Sleep Apnea: Yes (CPAP AT NIGHT.) Thyroid Disease: No Ulcer: No Influenza Vaccination: Yes PNEUMOCCOCAL Vaccine (Year): 1 Past Surgical History Abdominal Surgery: Yes (SPLEENECTOMY) AICD: No Arteriovenous Shunt: No Cardiac Surgery: Yes Cholecystectomy: Yes Coronary Artery Bypass Graft: Yes Coronary Stent: Yes Ear Surgery: No Endocrine Surgery: No Eye Surgery: No Genitourinary Surgery: No Gynecologic Surgery: No Insulin Pump: No Joint Replacement: No Neurologic Surgery: Yes ( L3/L4 BACK SURGERY ) Oral Surgery: No Pacemaker: No Thoracic Surgery: Yes Valve Replacement: Yes Other Surgery: Yes (SPLEEN REMOVED, L3/L4 BACK SURGERY ) Social History Alcohol Use: No (OCCASSIONALLY ) Tobacco Use: No Substance Use: No Allergies-Medications (Allergen,Severity, Reaction): Coded Allergies: Protamine Sulfate (Verified Allergy, Severe, Anaphylaxis, 06/28/15) Adhesives (Verified Allergy, Intermediate, 06/28/15) PATIENT DENIES *MDRO Multi-Drug Resistant Organism (Verified Adverse Reaction, Unknown, Cleared, 04/02/16) MRSA MRSA PCR Screen negative 06/29/14 and 07/02/14. Cleared per infection control Reported Meds & Prescriptions Reported Meds & Active Scripts Active Atrovent HFA 12.9 GM Inh (Ipratropium Almo) 17 Mcg/Act Aer 2 Puff INH QID Reported Ambien (Zolpidem Tartrate) 5 Mg Tab 5 Mg PO HS PRN Sm Melatonin (Melatonin) 3 Mg Tab 3 Mg PO HS Milk of Magnesia Liq (Magnesium Hydroxide) 400 Mg/5 Ml Susp 30 Ml PO Q6H PRN Multivitamin Adults (Multiple Vitamins W/ Minerals) 1 Tab 1 Tab PO DAILY Prednisone 20 Mg Tab 20 Mg PO DAILY Sinemet (Carbidopa-Levodopa) 25-100 Mg Tab 1 Tab PO TIDAC Diff-Stat (Probiotic Product) 1 Cap Cap 1 Cap PO BID Miralax Powder (Polyethylene Glycol 3350 Powder) 17 Gm Powd 17 Gm PO DAILY Mix and dissolve one measuring cap-ful (17 grams) in water or juice. Tamsulosin (Tamsulosin HCl) 0.4 Mg Cap 0.4 Mg PO HS Theophylline ER 24 HR (Theophylline) 400 Mg Tab 400 Mg PO DAILY Terazosin (Terazosin HCl) 5 Mg Cap 5 Mg PO HS Potassium Chloride CR (Potassium Chloride) 10 Meq Tab 20 Meq PO DAILY Omeprazole 20 Mg Tab 20 Mg PO DAILY Stiolto Respimat Inh (Tiotropium-Olodaterol Inh) 2.5-2.5 Mcg/Act Aero 2 Puff INH DAILY Montelukast (Montelukast Sodium) 10 Mg Tab 10 Mg PO HS Asmanex 120 Act Twisthaler (Mometasone 120 Act Inh) 220 Mcg/Act Inh 2 Puff INH BID Metoprolol Tartrate 25 Mg Tab 12.5 Mg PO DAILY Furosemide 20 Mg Tab 20 Mg PO DAILY Ferrous Sulfate 325 Mg Tab 325 Mg PO TID Escitalopram (Escitalopram Oxalate) 10 Mg Tab 10 Mg PO DAILY Clopidogrel (Clopidogrel Bisulfate) 75 Mg Tab 75 Mg PO DAILY Atorvastatin (Atorvastatin Calcium) 40 Mg Tab 40 Mg PO HS Aspirin 81 Mg Tabdr 81 Mg PO DAILY Review of Systems Except as stated in HPI: all other systems reviewed are Neg Physical Exam Narrative GENERAL:Well appearing, no acute distress SKIN: Dry with skin tenting HEAD: Atraumatic. Normocephalic. EYES: Pupils equal and round. No injection or drainage. ENT: Moist mucous membranes NECK: Trachea midline. CARDIOVASCULAR: Regular rate and rhythm. No murmur appreciated. RESPIRATORY: Clear to auscultation. Breath sounds equal bilaterally. GASTROINTESTINAL: Abdomen soft, non-tender, nondistended. MUSCULOSKELETAL: No obvious deformities. NEUROLOGICAL: Awake and alert. No obvious cranial nerve deficits. Moving all extremities. PSYCHIATRIC: Appropriate mood and affect; insight and judgment normal. Data Data Last Documented VS Vital Signs Date Time Temp Pulse Resp B/P Pulse Ox O2 Delivery O2 Flow Rate FiO2 05/16/16 11:00 78 16 108/54 98 Nasal Cannula 2 05/16/16 09:50 98.0 Orders Electrocardiogram (05/16/16 ) Complete Blood Count With Diff (05/16/16 09:56) Comprehensive Metabolic Panel (05/16/16 09:56) B-Type Natriuretic Peptide (05/16/16 09:56) Act Partial Throm Time (Ptt) (05/16/16 09:56) Prothrombin Time / Inr (Pt) (05/16/16 09:56) Troponin I (05/16/16 09:56) Iv Access Insert/Monitor (05/16/16 09:56) Ecg Monitoring (05/16/16 09:56) Oximetry (05/16/16 09:56) Oxygen Administration (05/16/16 09:56) Chest, Single Ap (05/16/16 09:56) Sodium Chloride 0.9% Flush (Ns Flush) (05/16/16 10:00) Ct Pulmonary Angiogram (05/16/16 ) Sodium Chlor 0.9% 1000 Ml Inj (Ns 1000 M (05/16/16 10:00) Iohexol 350 Inj (Omnipaque 350 Inj) (05/16/16 11:15) Labs Laboratory Tests Test 05/16/16 10:10 White Blood Count 10.6 TH/MM3 Red Blood Count 3.97 MIL/MM3 Hemoglobin 11.4 GM/DL Hematocrit 35.3 % Mean Corpuscular Volume 88.9 FL Mean Corpuscular Hemoglobin 28.7 PG Mean Corpuscular Hemoglobin 32.2 % Concent Red Cell Distribution Width 19.0 % Platelet Count 219 TH/MM3 Mean Platelet Volume 10.1 FL Neutrophils (%) (Auto) 80.7 % Lymphocytes (%) (Auto) 9.6 % Monocytes (%) (Auto) 7.9 % Eosinophils (%) (Auto) 1.0 % Basophils (%) (Auto) 0.8 % Neutrophils # (Auto) 8.6 TH/MM3 Lymphocytes # (Auto) 1.0 TH/MM3 Monocytes # (Auto) 0.8 TH/MM3 Eosinophils # (Auto) 0.1 TH/MM3 Basophils # (Auto) 0.1 TH/MM3 CBC Comment DIFF FINAL Differential Comment Prothrombin Time 11.0 SEC Prothromb Time International 1.0 RATIO Ratio Activated Partial 21.2 SEC Thromboplast Time Sodium Level 140 MEQ/L Potassium Level 3.6 MEQ/L Chloride Level 107 MEQ/L Carbon Dioxide Level 24.2 MEQ/L Anion Gap 9 MEQ/L Blood Urea Nitrogen 15 MG/DL Creatinine 0.90 MG/DL Estimat Glomerular Filtration 81 ML/MIN Rate Random Glucose 132 MG/DL Calcium Level 8.4 MG/DL Total Bilirubin 0.4 MG/DL Aspartate Amino Transf 16 U/L (AST/SGOT) Alanine Aminotransferase 11 U/L (ALT/SGPT) Alkaline Phosphatase 56 U/L Troponin I 0.08 NG/ML B-Type Natriuretic Peptide 175 PG/ML Total Protein 5.8 GM/DL Albumin 2.8 GM/DL MDM Medical Decision Making Medical Screen Exam Complete: Yes Emergency Medical Condition: Yes Interpretation(s) Afebrile, no tachycardia, normotensive Mild anemia Electrolytes are reassuring Troponin is 0.08 decreased from prior hospitalization when his troponin was 0.11 Chest x-ray demonstrates cardiomegaly CT pulmonary angiogram is negative for PE Differential Diagnosis Orthostatic hypotension, dehydration, myocardial infarction, arrhythmia, electrolyte abnormality, infection Narrative Course This is an 81-year-old male who presents to the emergency department having had an episode of presyncope earlier today and his halfway when he dropped to a systolic of 70 upon standing. His symptoms improved when he sat down. He is on Lasix. On exam he appears quite dry. He was placed on a monitor and an IV was established. Labs were obtained which were reassuring. He does have a troponin of 0.08 but this is lower than when he was most recently admitted where his baseline was .10. Patient does have a history of pulmonary embolism and is currently not on any anticoagulation. A CT pulmonary angiogram was ordered which was negative. I had a conversation with the patient regarding admission versus discharge. He would like to go home. He has an appointment with his primary care physician tomorrow. A think his symptoms were secondary to orthostatic hypotension. Given a liter of IV fluid in the emergency department and feels much better and was able to ambulate without difficulty or symptoms. Patient was discharged home. Diagnosis Primary Impression: Orthostatic hypotension Patient Instructions: General Instructions Additional Instructions: If you develop severe chest pain, shortness of breath, sweating, lightheadedness , dizziness or difficulty breathing return to the emergency department immediately. Followup with your primary care physician in 2-3 days if your symptoms are not resolved. Med/Other Pt SpecificInfo: No Change to Meds Disposition: 01 DISCHARGE HOME Condition: Stable Mikaela Sands MD May 16, 2016 12:01
--- NOTE | 2016-05-16 21:45 | EKG ---
Date Performed: 05/16/2016 Time Performed: 09:53:13 PTAGE: 81 years EKG: Sinus rhythm WITH FIRST DEGREE AV BLOCK MARKED LEFT AXIS DEVIATION INTRAVENTRICULAR CONDUCTION DELAY (LBBB TYPE) ABNORMAL ECG PREVIOUS TRACING : 03/30/2016 22.38 Compared to the previous tracing, IVCD OF RBBB type no faye kwesi present DOCTOR: Liss Clemens Interpretating Date/Time 05/16/2016 21:43:51
== END 2016-05-16 12:53 | disposition home or self-care (01) ==
LOC: NEPE 09:47
DX: I95.1 Orthostatic hypotension (principal); I48.91 Unspecified atrial fibrillation; I50.9 Heart failure, unspecified; I25.10 Atherosclerotic heart disease of native coronary artery without angina pectoris; I10 Essential (primary) hypertension; I25.2 Old myocardial infarction; J44.9 Chronic obstructive pulmonary disease, unspecified; R06.02 Shortness of breath
CPT/HCPCS: 71010; 71275; 80053; 83880; 84484; 85025; 85610; 85730; 93005; 96360; 99284; J7030; Q9967

== ENCOUNTER → 2016-07-31 | Outpatient (CLI) | payer MEDICARE ==
[~2016-07-31] MED LIST changes: +DIFFCHW PO; +MILKSUS PO; +MIRA33504 PO; +MULT1TAB84 PO; +SINE25TA PO; +SM M PO; -SPIRCAP INH; +TAMS0.4C4 PO
--- NOTE | 2016-08-08 11:45 | RSPPFT ---
DATE OF PROCEDURE: 07/31/16 COMMENTS: VOLUMES DYNAMIC: FVC and FEV1 moderately reduced. STATIC: FRC mildly increased; RV severely increased. FLOWS: FEV1% moderately reduced; FEF 25-75 severely reduced. DIFFUSION: Moderately reduced. FLOW VOLUME LOOP: Pattern of variable intrathoracic airways obstruction. IMPRESSION: Moderately severe obstructive ventilatory defect with reduction in diffusion and significant hyperinflation. Airways resistance is increased and there is improvement post-bronchodilator.
== END ==
LOC: PHRSP 09:29
PROVIDERS: ATTEND Internal Medicine
DX: J44.9 Chronic obstructive pulmonary disease, unspecified (principal)
CPT/HCPCS: 94060; 94620; 94726; 94729

== ENCOUNTER 2017-02-11 16:10 | Inpatient (IN) | payer MEDICARE ==
[2017-02-11] VITALS (12 sets, daily range): BP systolic 132–166; BP diastolic 76–117; PULSE 79–90; RESP 22–26; TEMP 98–98.2; O2SAT 94–98
[~2017-02-11] VITALS: Ht 180.3 cm; Wt 100.0 kg
[~2017-02-11 16:10] MED LIST changes: +MELA3TAB2 PO; -OMEP20TA PO; +OMEP20TA93 PO; -SM M PO
[2017-02-11] MEDS: RESP: ALBUTEROL 2.5 MG/IPRATROPIUM 0.5 MG NEB (SCH) INH ×3 (16:28→23:52)
[2017-02-11] MEDS ORDERED: methylPREDNISolone SOD SUCC 125 MG/2 ML VIAL IV PUSH ONE (16:30)
[2017-02-11] MEDS ORDERED: SODIUM CHLORIDE 0.9% FLUSH 10 ML FLUSH IVF PRN (16:30)
[2017-02-11 16:57] LABS: BASOPHIL # 0.1 TH/MM3 (0-0.2); BASOPHIL % 0.5 % (0.0-2.0); HEMATOCRIT 36.9 % (39.0-51.0); HEMO FLAGS DIFF FINAL; LYMPH % 2.6 % (9.0-44.0); LYMPHOCYTE # 0.3 TH/MM3 (1.0-4.8); MEAN CELL VOLUME 92.1 FL (80.0-100.0); MEAN CORPUSCULAR HEMOGLOBIN 29.5 PG (27.0-34.0); MONO % 2.3 % (0.0-8.0); NEUT % 94.6 % (16.0-70.0); PLATELET COUNT 228 TH/MM3 (150-450); RED CELL DISTRIBUTION WIDTH 16.4 % (11.6-17.2); WHITE BLOOD COUNT 10.6 TH/MM3 (4.0-11.0)
--- NOTE | 2017-02-11 16:59 | RADRPT ---
EXAM DATE/TIME: 02/11/2017 16:31 [facility] COMPARISON: CHEST SINGLE AP, May 16, 2016, 10:04. INDICATIONS : Short of breath MEDICAL HISTORY : Cardiovascular disease. Hypertension. Hernia, hiatal. Reflux, Mcgee's esophagus. SURGICAL HISTORY : Splenectomy. Cholecystectomy ENCOUNTER: Initial ACUITY: 3 days PAIN SCORE: 0/10 LOCATION: chest FINDINGS: A single portable frontal view the chest shows mild cardiomegaly. Lungs are clear. No infiltrate or e ffusion. Median sternotomy wires. CONCLUSION: Cardiomegaly. Clear lungs. Manjit Lau Jr., MD on February 11, 2017 at 16:56 Board Certified Radiologist. This report was verified electronically.
[2017-02-11 17:09] LABS: ALT (GPT) 32 U/L (12-78); ANION GAP 11 MEQ/L (5-15); AST (GOT) 28 U/L (15-37); BICARBONATE 20.8 MEQ/L (21.0-32.0); BLOOD UREA NITROGEN 18 MG/DL (7-18); CHLORIDE 110 MEQ/L (98-107); GLOMERULAR FILTRATION RATE 63 ML/MIN (>89); POTASSIUM 4.3 MEQ/L (3.5-5.1); SODIUM (NA) 142 MEQ/L (136-145)
[2017-02-11 17:13] LABS: ALKALINE PHOSPHATASE 65 U/L (45-117); TOTAL BILIRUBIN ADULT 0.3 MG/DL (0.2-1.0)
[2017-02-11 17:18] LABS: APTT (PATIENT) 21.7 SEC (24.3-30.1); PROTHROMBIN TIME - PATIENT 10.5 SEC (9.8-11.6)
--- NOTE | 2017-02-11 17:31 | RADRPT ---
EXAM DATE/TIME: 02/11/2017 16:55 [facility] COMPARISON: No previous studies available for comparison. INDICATIONS : Left leg swelling. MEDICAL HISTORY : Hypercholesterolemia. Aneurysm, abdominal. Hypertension. Vertigo. COPD. Emphysema. Mcgee's esoph cortes. atrial fibrillation. hemorroids. bph. arthritis. diverticulitis. gerd. SURGICAL HISTORY : Splenectomy. Cholecystectomy. CABG. Back surgery L3-L4. ENCOUNTER: Initial ACUITY: 1 day PAIN SCORE: 8/10 LOCATION: Left leg. TECHNIQUE: Venous ultrasound of the leg was performed from the inguinal ligament to the proximal calf. Real-anjum e, color Doppler and spectral tracing, compression and augmentation techniques were used. FINDINGS: There is normal compressibility of the deep venous system from the inguinal region to the proximal ca lf. Compression was not possible throughout the superficial femoral vein due to patient discomfort wi th compression in this area. No echogenic clot is seen in the lumen of the common femoral, femoral, popliteal, and posterior tibial veins. There is a normal response of the venous system to respiratio n. CONCLUSION: No DVT. Manjit Lau Jr., MD on February 11, 2017 at 17:26 Board Certified Radiologist. This report was verified electronically.
[2017-02-11] MEDS ORDERED: LEVOFLOXACIN 250 MG PREMIX INJ 50 ML IV ONE (18:15)
--- NOTE | 2017-02-11 18:28 | PD ---
HPI Chief Complaint: Respiratory Symptoms Time Seen by Provider: 16:18 Travel History International Travel<30 days: No Contact w/Intl Traveler<30days: No Traveled to known affect area: No History of Present Illness HPI Patient is an 82-year-old male who comes in complaining of shortness of breath. He says this is been going on for several days, but got worse today. He has been using his nebulizer at home without relief. He says he has had a cough, but no fever. He denies any chest pain. He says he has had swelling in his left leg, but this is chronic. He denies nausea or vomiting. He denies any abdominal pain. PFSH Past Medical History Hx Anticoagulant Therapy: Yes (PLAVIX) AAA: Yes Arthritis: Yes Asthma: No Atrial Fibrillation: Yes Autoimmune Disease: No Blood Disorders: No Anxiety: Yes Depression: No Heart Rhythm Problems: No Cancer: No Cardiac Catheterization: No Cardiovascular Problems: Yes (CABG X 2) High Cholesterol: Yes Chemotherapy: No Chest Pain: Yes Congestive Heart Failure: Yes COPD: Yes Cerebrovascular Accident: No Coronary Artery Disease: Yes Diabetes: No Diminished Hearing: Yes (HEARING AIDS ) Diverticulitis: Yes Endocrine: No Gastrointestinal Disorders: Yes (Mcgee's Esophagus) GERD: Yes Glaucoma: No Genitourinary: Yes (hemorrhoids, BPH) Headaches: No Hepatitis: No Hiatal Hernia: Yes Hypertension: Yes Immune Disorder: No Implanted Vascular Access Dvce: No Kidney Stones: No Musculoskeletal: Yes (right rotator cuff problems, BACK) Neurologic: Yes (positional vertigo; spinal stenosis) Psychiatric: No Reproductive: No Respiratory: Yes (COPD) Immunizations Current: Yes Migraines: No Myocardial Infarction: Yes Radiation Therapy: No Renal Failure: No Seizures: No Sickle Cell Disease: No Sleep Apnea: Yes (CPAP AT NIGHT.) Thyroid Disease: No Ulcer: No Tetanus Vaccination: < 5 Years PNEUMOCCOCAL Vaccine (Year): 1 Past Surgical History Abdominal Surgery: Yes (SPLEENECTOMY) AICD: No Arteriovenous Shunt: No Cardiac Surgery: Yes Cholecystectomy: Yes Coronary Artery Bypass Graft: Yes Coronary Stent: Yes Ear Surgery: No Endocrine Surgery: No Eye Surgery: No Genitourinary Surgery: No Gynecologic Surgery: No Insulin Pump: No Joint Replacement: No Neurologic Surgery: Yes ( L3/L4 BACK SURGERY ) Oral Surgery: No Pacemaker: No Thoracic Surgery: Yes Valve Replacement: Yes Other Surgery: Yes (SPLEEN REMOVED, L3/L4 BACK SURGERY ) Social History Alcohol Use: No (OCCASSIONALLY ) Tobacco Use: No Substance Use: No Allergies-Medications (Allergen,Severity, Reaction): Coded Allergies: protamine (Verified Allergy, Severe, Anaphylaxis, 02/11/17) adhesive (Verified Allergy, Intermediate, 02/11/17) PATIENT DENIES *MDRO Multi-Drug Resistant Organism (Verified Adverse Reaction, Unknown, Cleared, 02/11/17) MRSA MRSA PCR Screen negative 06/29/14 and 07/02/14. Cleared per infection control Reported Meds & Prescriptions Reported Meds & Active Scripts Active Atrovent HFA 12.9 GM Inh (Ipratropium [place]) 17 Mcg/Act Aer 2 Puff INH QID Reported Ambien (Zolpidem Tartrate) 5 Mg Tab 5 Mg PO HS PRN Sm Melatonin (Melatonin) 3 Mg Tab 3 Mg PO HS Milk of Magnesia Liq (Magnesium Hydroxide) 400 Mg/5 Ml Susp 30 Ml PO Q6H PRN Multivitamin Adults (Multiple Vitamins W/ Minerals) 1 Tab 1 Tab PO DAILY Prednisone 20 Mg Tab 20 Mg PO DAILY Sinemet (Carbidopa-Levodopa) 25-100 Mg Tab 1 Tab PO TIDAC Diff-Stat (Probiotic Product) 1 Cap Cap 1 Cap PO BID Miralax Powder (Polyethylene Glycol 3350 Powder) 17 Gm Powd 17 Gm PO DAILY Mix and dissolve one measuring cap-ful (17 grams) in water or juice. Tamsulosin (Tamsulosin HCl) 0.4 Mg Cap 0.4 Mg PO HS Theophylline ER 24 HR (Theophylline) 400 Mg Tab 400 Mg PO DAILY Terazosin (Terazosin HCl) 5 Mg Cap 5 Mg PO HS Potassium Chloride CR (Potassium Chloride) 10 Meq Tab 20 Meq PO DAILY Omeprazole 20 Mg Tab 20 Mg PO DAILY Stiolto Respimat Inh (Tiotropium-Olodaterol Inh) 2.5-2.5 Mcg/Act Aero 2 Puff INH DAILY Montelukast (Montelukast Sodium) 10 Mg Tab 10 Mg PO HS Asmanex 120 Act Twisthaler (Mometasone 120 Act Inh) 220 Mcg/Act Inh 2 Puff INH BID Metoprolol Tartrate 25 Mg Tab 12.5 Mg PO DAILY Furosemide 20 Mg Tab 20 Mg PO DAILY Ferrous Sulfate 325 Mg Tab 325 Mg PO TID Escitalopram (Escitalopram Oxalate) 10 Mg Tab 10 Mg PO DAILY Clopidogrel (Clopidogrel Bisulfate) 75 Mg Tab 75 Mg PO DAILY Atorvastatin (Atorvastatin Calcium) 40 Mg Tab 40 Mg PO HS Aspirin 81 Mg Tabdr 81 Mg PO DAILY Review of Systems Except as stated in HPI: all other systems reviewed are Neg General / Constitutional: No: Fever, Chills HENT: No: Headaches, Lightheadedness Cardiovascular: No: Chest Pain or Discomfort Respiratory: Positive: Shortness of Breath Gastrointestinal: No: Nausea, Vomiting, Abdominal Pain Genitourinary: No: Dysuria Musculoskeletal: No: Myalgias Skin: No Rash, No Change in Pigmentation Neurologic: No: Weakness, Dizziness Physical Exam Narrative GENERAL: He can alert, in mild distress. SKIN: Focused skin assessment warm/dry. HEAD: Atraumatic. Normocephalic. EYES: Pupils equal and round. No scleral icterus. ENT: Mucous membranes pink and moist. NECK: Trachea midline. No JVD. CARDIOVASCULAR: Regular rate and rhythm. No murmur appreciated. RESPIRATORY: No accessory muscle use. If use wheezing and coarse breath sounds throughout both lungs. Breath sounds equal bilaterally. GASTROINTESTINAL: Abdomen soft, non-tender, nondistended. MUSCULOSKELETAL: No obvious deformities. No clubbing. No cyanosis. Edema of the left lower extremity. NEUROLOGICAL: Awake and alert. No obvious cranial nerve deficits. Motor grossly within normal limits. Normal speech. PSYCHIATRIC: Appropriate mood and affect; insight and judgment normal. Data Data Last Documented VS Vital Signs Date Time Temp Pulse Resp B/P (MAP) Pulse Ox O2 Delivery O2 Flow Rate FiO2 02/11/17 18:00 97 45 02/11/17 16:28 Nasal Cannula 2.00 02/11/17 16:23 24 02/11/17 16:22 79 132/89 (103) 02/11/17 16:19 98.2 Orders Orders Complete Blood Count With Diff (02/11/17 16:18) Comprehensive Metabolic Panel (02/11/17 16:18) B-Type Natriuretic Peptide (02/11/17 16:18) Act Partial Throm Time (Ptt) (02/11/17 16:18) Prothrombin Time / Inr (Pt) (02/11/17 16:18) Troponin I (02/11/17 16:18) Iv Access Insert/Monitor (02/11/17 16:18) Electrocardiogram (02/11/17 16:18) Ecg Monitoring (02/11/17 16:18) Oximetry (02/11/17 16:18) Oxygen Administration (02/11/17 16:18) Chest, Single Ap (02/11/17 16:18) Us Leg Venous Doppler (02/11/17 16:18) Sodium Chloride 0.9% Flush (Ns Flush) (02/11/17 16:30) Methylprednisolone So Succ Inj (Solumedr (02/11/17 16:30) Albuterol-Ipratropium Neb (Duoneb Neb) (02/11/17 16:30) Resp Bipap / Cpap Non Invas Vt (02/11/17 ) Levofloxacin 250 Mg Premix Inj (Levaquin (02/11/17 18:15) Albuterol-Ipratropium Neb (Duoneb Neb) (02/11/17 18:30) Labs Laboratory Tests Test 02/11/17 16:20 White Blood Count 10.6 TH/MM3 Red Blood Count 4.00 MIL/MM3 Hemoglobin 11.8 GM/DL Hematocrit 36.9 % Mean Corpuscular Volume 92.1 FL Mean Corpuscular Hemoglobin 29.5 PG Mean Corpuscular Hemoglobin Concent 32.0 % Red Cell Distribution Width 16.4 % Platelet Count 228 TH/MM3 Mean Platelet Volume 9.2 FL Neutrophils (%) (Auto) 94.6 % Lymphocytes (%) (Auto) 2.6 % Monocytes (%) (Auto) 2.3 % Eosinophils (%) (Auto) 0.0 % Basophils (%) (Auto) 0.5 % Neutrophils # (Auto) 10.0 TH/MM3 Lymphocytes # (Auto) 0.3 TH/MM3 Monocytes # (Auto) 0.2 TH/MM3 Eosinophils # (Auto) 0.0 TH/MM3 Basophils # (Auto) 0.1 TH/MM3 CBC Comment DIFF FINAL Differential Comment Prothrombin Time 10.5 SEC Prothromb Time International Ratio 1.0 RATIO Activated Partial Thromboplast Time 21.7 SEC Blood Urea Nitrogen 18 MG/DL Creatinine 1.12 MG/DL Random Glucose 298 MG/DL Total Protein 6.7 GM/DL Albumin 3.3 GM/DL Calcium Level 8.8 MG/DL Alkaline Phosphatase 65 U/L Aspartate Amino Transf (AST/SGOT) 28 U/L Alanine Aminotransferase (ALT/SGPT) 32 U/L Total Bilirubin 0.3 MG/DL Sodium Level 142 MEQ/L Potassium Level 4.3 MEQ/L Chloride Level 110 MEQ/L Carbon Dioxide Level 20.8 MEQ/L Anion Gap 11 MEQ/L Estimat Glomerular Filtration Rate 63 ML/MIN Troponin I 0.02 NG/ML MDM Medical Decision Making Medical Screen Exam Complete: Yes Emergency Medical Condition: Yes Medical Record Reviewed: Yes Interpretation(s) ECG shows normal sinus rhythm at [address] elevation or depression. Right bundle -branch block. Differential Diagnosis COPD exacerbation versus pneumonia versus ACS versus CHF exacerbation Narrative Course Patient is an 82-year-old male comes in complaining of shortness of breath. Exam shows diffuse wheezing and coarse breath sounds bilateral lungs. IV established, labs sent. Patient given 3 duo nebs and Solu-Medrol. Patient continues to complain of shortness of breath and have diffuse wheezing. He says he has been on BiPAP for this in the past. He was started on BiPAP and is starting to feel better. Given an additional DuoNeb. Labs show a normal white blood cell count, however he has a large left shift. Given a dose of Levaquin. Chest x-ray shows cardiomegaly, clear lungs. Ultrasound of the leg shows no evidence of DVT. Patient will be admitted for further management. Diagnosis Primary Impression: COPD (chronic obstructive pulmonary disease) Qualified Codes: J44.1 - Chronic obstructive pulmonary disease with (acute) exacerbation Admitting Information Admitting Physician Requests: Admit Radha Booker MD Feb 11, 2017 18:28
[2017-02-11] MEDS ORDERED: RESP: ALBUTEROL 2.5 MG/IPRATROPIUM 0.5 MG NEB (SCH) NEB ONE (18:30)
[2017-02-11] MEDS ORDERED: SODIUM CHLORIDE 0.9% FLUSH 10 ML FLUSH IV FLUSH PRN (19:45)
[2017-02-11] MEDS ORDERED: RESP: ALBUTEROL 2.5 MG/3 ML NEB (PRN) INH (19:45)
--- NOTE | 2017-02-11 20:00 | HHI.HP ---
[facility] Toño Bunn MD Admission Diagnosis COPD exacerbation Diagnoses: Travel History International Travel<30 Days: No Contact w/Intl Traveler <30 Da: No Traveled to Known Affected Are: No History of Present Illness 82-year-old male with a past medical history significant for CHF, CAD, hypertension, hyperlipidemia and COPD presents with a one-week history of increasing shortness of breath and dyspnea on exertion. The patient denies fever/chills. Endorses increasing cough productive of clear sputum. Oxygen saturation 97% on 2 L nasal cannula, patient now on BiPAP. Chest x-ray significant only for cardiomegaly, no acute process. BNP 101. Chemistry at baseline. CBC without leukocytosis. 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 Cholecystectomy Reported Medications Reported Meds & Active Scripts Active Atrovent HFA 12.9 GM Inh (Ipratropium [place]) 17 Mcg/Act Aer 2 Puff INH QID Reported Ambien (Zolpidem Tartrate) 5 Mg Tab 5 Mg PO HS PRN Sm Melatonin (Melatonin) 3 Mg Tab 3 Mg PO HS Milk of Magnesia Liq (Magnesium Hydroxide) 400 Mg/5 Ml Susp 30 Ml PO Q6H PRN Multivitamin Adults (Multiple Vitamins W/ Minerals) 1 Tab 1 Tab PO DAILY Prednisone 20 Mg Tab 20 Mg PO DAILY Sinemet (Carbidopa-Levodopa) 25-100 Mg Tab 1 Tab PO TIDAC Diff-Stat (Probiotic Product) 1 Cap Cap 1 Cap PO BID Miralax Powder (Polyethylene Glycol 3350 Powder) 17 Gm Powd 17 Gm PO DAILY Mix and dissolve one measuring cap-ful (17 grams) in water or juice. Tamsulosin (Tamsulosin HCl) 0.4 Mg Cap 0.4 Mg PO HS Theophylline ER 24 HR (Theophylline) 400 Mg Tab 400 Mg PO DAILY Terazosin (Terazosin HCl) 5 Mg Cap 5 Mg PO HS Potassium Chloride CR (Potassium Chloride) 10 Meq Tab 20 Meq PO DAILY Omeprazole 20 Mg Tab 20 Mg PO DAILY Stiolto Respimat Inh (Tiotropium-Olodaterol Inh) 2.5-2.5 Mcg/Act Aero 2 Puff INH DAILY Montelukast (Montelukast Sodium) 10 Mg Tab 10 Mg PO HS Asmanex 120 Act Twisthaler (Mometasone 120 Act Inh) 220 Mcg/Act Inh 2 Puff INH BID Metoprolol Tartrate 25 Mg Tab 12.5 Mg PO DAILY Furosemide 20 Mg Tab 20 Mg PO DAILY Ferrous Sulfate 325 Mg Tab 325 Mg PO TID Escitalopram (Escitalopram Oxalate) 10 Mg Tab 10 Mg PO DAILY Clopidogrel (Clopidogrel Bisulfate) 75 Mg Tab 75 Mg PO DAILY Atorvastatin (Atorvastatin Calcium) 40 Mg Tab 40 Mg PO HS Aspirin 81 Mg Tabdr 81 Mg PO DAILY Allergies: Coded Allergies: protamine (Verified Allergy, Severe, Anaphylaxis, 02/11/17) adhesive (Verified Allergy, Intermediate, 02/11/17) PATIENT DENIES *MDRO Multi-Drug Resistant Organism (Verified Adverse Reaction, Unknown, Cleared, 02/11/17) MRSA MRSA PCR Screen negative 06/29/14 and 07/02/14. Cleared per infection control Family History No family history of coronary artery disease or diabetes. Social History Quit smoking 35 years ago. Occasional alcohol. Denies marijuana or illicit drugs. Physical Exam Vital Signs Vital Signs Date Time Temp Pulse Resp B/P (MAP) Pulse Ox O2 Delivery O2 Flow Rate FiO2 02/11/17 18:00 97 45 02/11/17 16:28 97 Nasal Cannula 2.00 02/11/17 16:23 24 97 Nasal Cannula 2.00 02/11/17 16:22 97 Nasal Cannula 2.00 02/11/17 16:22 79 24 132/89 (103) 96 Nasal Cannula 2.00 02/11/17 16:19 98.2 79 24 132/89 (103) 94 02/11/17 16:13 98.2 86 26 153/76 (101) 95 Room Air Physical Exam GENERAL: male sitting up in bed on BiPAP SKIN: No rashes, ecchymoses or lesions. Cool and dry. HEAD: Atraumatic. Normocephalic. No temporal or scalp tenderness. EYES: Pupils equal round and reactive. Extraocular motions intact. No scleral icterus. No injection or drainage. ENT: Nose without bleeding, purulent drainage or septal hematoma. Throat without erythema, tonsillar hypertrophy or exudate. Uvula midline. Airway patent. NECK: Trachea midline. No JVD or lymphadenopathy. Supple, nontender, no meningeal signs. CARDIOVASCULAR: Regular rate and rhythm without murmurs, gallops, or rubs. RESPIRATORY: Wheezes throughout all lung contreras. No crackles, rales or rhonchi GASTROINTESTINAL: Abdomen soft, non-tender, nondistended. No hepato-splenomegaly , or palpable masses. No guarding. MUSCULOSKELETAL: 2+ pitting edema to the knees. NEUROLOGICAL: Awake and alert. Cranial nerves II through XII intact. Motor and sensory grossly within normal limits. Normal speech. Laboratory Laboratory Tests Test 02/11/17 16:20 White Blood Count 10.6 Red Blood Count 4.00 Hemoglobin 11.8 Hematocrit 36.9 Mean Corpuscular Volume 92.1 Mean Corpuscular Hemoglobin 29.5 Mean Corpuscular Hemoglobin Concent 32.0 Red Cell Distribution Width 16.4 Platelet Count 228 Mean Platelet Volume 9.2 Neutrophils (%) (Auto) 94.6 Lymphocytes (%) (Auto) 2.6 Monocytes (%) (Auto) 2.3 Eosinophils (%) (Auto) 0.0 Basophils (%) (Auto) 0.5 Neutrophils # (Auto) 10.0 Lymphocytes # (Auto) 0.3 Monocytes # (Auto) 0.2 Eosinophils # (Auto) 0.0 Basophils # (Auto) 0.1 CBC Comment DIFF FINAL Differential Comment Prothrombin Time 10.5 Prothromb Time International Ratio 1.0 Activated Partial Thromboplast Time 21.7 Blood Urea Nitrogen 18 Creatinine 1.12 Random Glucose 298 Total Protein 6.7 Albumin 3.3 Calcium Level 8.8 Alkaline Phosphatase 65 Aspartate Amino Transf (AST/SGOT) 28 Alanine Aminotransferase (ALT/SGPT) 32 Total Bilirubin 0.3 Sodium Level 142 Potassium Level 4.3 Chloride Level 110 Carbon Dioxide Level 20.8 Anion Gap 11 Estimat Glomerular Filtration Rate 63 Troponin I 0.02 B-Type Natriuretic Peptide 101 Result Diagram: 02/11/17 1620 02/11/17 1620 Caprini VTE Risk Assessment Caprini VTE Risk Assessment: Mod/High Risk (score >= 2) Caprini Risk Assessment Model Point Value = 1 Point Value = 2 Point Value = 3 Point Value = 5 Age 41-60 Minor surgery BMI > 25 kg/m2 Swollen legs Varicose veins or History of unexplained or recurrent spontaneous Oral contraceptives or hormone replacement Sepsis (< 1 month) Serious lung disease, including pneumonia (< 1 month) Abnormal pulmonary function Acute myocardial infarction Congestive heart failure (< 1 month) History of inflammatory bowel disease Medical patient at bed rest Age 61-74 Arthroscopic surgery Major open surgery (> 45 min) Laparoscopic surgery (> 45 min) Malignancy Confined to bed (> 72 hours) Immobilizing plaster cast Central venous access Age >= 75 History of VTE Family history of VTE Factor V Leiden Prothrombin [id number] Lupus anticoagulant Anticardiolipin antibodies Elevated serum homocysteine Heparin-induced thrombocytopenia Other congenital or acquired thrombophilia Stroke (< 1 month) Elective arthroplasty Hip, pelvis, or leg fracture Acute spinal cord injury (< 1 month) Prophylaxis Regimen Total Risk Factor Score Risk Level Prophylaxis Regimen 0-1 Low Early ambulation 2 Moderate Order ONE of the following: *Sequential Compression Device (SCD) *Heparin 5000 units SQ BID 3-4 Higher Order ONE of the following medications: *Heparin 5000 units SQ TID *Enoxaparin/Lovenox 40 mg SQ daily (WT < 150 kg, CrCl > 30 mL/min) *Enoxaparin/Lovenox 30 mg SQ daily (WT < 150 kg, CrCl > 10-29 mL/min) *Enoxaparin/Lovenox 30 mg SQ BID (WT < 150 kg, CrCl > 30 mL/min) AND/OR *Sequential Compression Device (SCD) 5 or more Highest Order ONE of the following medications: *Heparin 5000 units SQ TID (Preferred with Epidurals) *Enoxaparin/Lovenox 40 mg SQ daily (WT < 150 kg, CrCl > 30 mL/min) *Enoxaparin/Lovenox 30 mg SQ daily (WT < 150 kg, CrCl > 10-29 mL/min) *Enoxaparin/Lovenox 30 mg SQ BID (WT < 150 kg, CrCl > 30 mL/min) AND *Sequential Compression Device (SCD) Assessment and Plan Assessment and Plan 82-year-old male with past medical history significant for coronary artery disease, CHF, COPD, hypertension and hyperlipidemia presents with 1 week of increasing shortness of breath and dyspnea on exertion. 1. 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 Mcnamara consulted, appreciate recommendations 2. Hypertension Controlled Continue home medications 3. CAD/status post CABG/CHF Continue home medications including aspirin/Plavix 4. Hyperlipidemia Continue home statin FEN Heart healthy diet Electrolytes: monitor and replete prn Heparin Physician Certification 2 Midnight Certification Type: Admission for Inpatient Services Order for Inpatient Services The services are ordered in accordance with Medicare regulations or non- Medicare payer requirements, as applicable. In the case of services not specified as inpatient-only, they are appropriately provided as inpatient services in accordance with the 2-midnight benchmark. Estimated LOS (days): 2 2 days is the estimated time the patient will need to remain in the hospital, assuming treatment plan goals are met and no additional complications. Post-Hospital Plan: Not yet determined Emma Esteban MD Feb 11, 2017 20:00
[2017-02-11 20:23] LABS: BLOOD GAS CARBOXYHEMOGLOBIN 1.1 % (0-4); BLOOD GAS HCO3 19 mmol/L (22-26); BLOOD GAS METHEMOGLOBIN 0.7 % (0-2); BLOOD GAS O2 HGB SATURATION 97 % (90-100); BLOOD GAS OXYGEN CONTENT 16.3 Vol % (12.0-20.0); BLOOD GAS PCO2 25 mmHg (38-42); BLOOD GAS PO2 113 mmHG (61-120); BLOOD GAS TOTAL HGB 11.9 G/DL (12.0-16.0); CRITICAL VALUE NO; DRAW SITE RT RADIAL; FIO2 45 %; NUMBER OF ARTERIAL PUNCTURES 1; OXYGEN DEVICE BIPAP; STAT YES; TEMP CORR TO 98.6; ULNAR PULSE PRESENT; VENT SETTINGS IPAP EPAP5 RATE10
[2017-02-11] MEDS ORDERED: TAMSULOSIN HCL 0.4 MG CAP PO SCH (21:00)
[2017-02-11] MEDS: TERAZOSIN HCL 5 MG CAP PO SCH (21:51)
[2017-02-11] MEDS: SODIUM CHLORIDE 0.9% FLUSH 10 ML FLUSH IV FLUSH SCH (21:51)
[2017-02-11] MEDS: HEPARIN SODIUM - SQ 10,000 UNITS/ML VIAL SQ SCH (21:52)
[2017-02-11] MEDS: MONTELUKAST SODIUM 10 MG TAB PO SCH (21:52)
[2017-02-11] MEDS: ATORVASTATIN 40 MG TAB PO SCH (21:52)
[2017-02-11] MEDS: ZOLPIDEM TARTRATE 5 MG TAB PO PRN (23:50)
[2017-02-11] MEDS: methylPREDNISolone SOD SUCC 125 MG/2 ML VIAL IV PUSH SCH (23:50)
[2017-02-12] VITALS (32 sets, daily range): BP systolic 130–157; BP diastolic 62–92; PULSE 74–108; RESP 18–24; TEMP 97.5–97.8; O2SAT 94–98
[2017-02-12] MEDS: RESP: ALBUTEROL 2.5 MG/IPRATROPIUM 0.5 MG NEB (SCH) INH ×5 (03:41→20:00)
[2017-02-12 05:18] LABS: AUTOMATED NEUTROPHIL # 11.9 TH/MM3 (1.8-7.7); BASOPHIL % 0.1 % (0.0-2.0); HEMATOCRIT 34.9 % (39.0-51.0); HEMO FLAGS DIFF FINAL; LYMPHOCYTE # 0.4 TH/MM3 (1.0-4.8); MEAN CELL VOLUME 91.7 FL (80.0-100.0); MEAN CORPUSCULAR HEMOGLOBIN 28.9 PG (27.0-34.0); MEAN CORPUSCULAR HGB CONC 31.5 % (32.0-36.0); MONO % 1.1 % (0.0-8.0); NEUT % 95.8 % (16.0-70.0); PLATELET COUNT 214 TH/MM3 (150-450); RED CELL DISTRIBUTION WIDTH 16.1 % (11.6-17.2); WHITE BLOOD COUNT 12.5 TH/MM3 (4.0-11.0)
[2017-02-12 05:42] LABS: BICARBONATE 21.3 MEQ/L (21.0-32.0); POTASSIUM 4.1 MEQ/L (3.5-5.1)
[2017-02-12] MEDS: methylPREDNISolone SOD SUCC 125 MG/2 ML VIAL IV PUSH SCH ×2 (06:19→20:37)
[2017-02-12] MEDS: HEPARIN SODIUM - SQ 10,000 UNITS/ML VIAL SQ SCH ×3 (06:19→20:37)
[2017-02-12] MEDS: CARBIDOPA/LEVODOPA 25 MG/100 MG TAB PO SCH ×3 (08:00→17:00)
[2017-02-12] MEDS ORDERED: TIOTROPIUM OLODATEROL INH SCH (09:00)
[2017-02-12] MEDS ORDERED: MOMETASONE INH SCH (09:00)
[2017-02-12] MEDS: CLOPIDOGREL 75 MG TAB PO SCH (09:14)
[2017-02-12] MEDS: SODIUM CHLORIDE 0.9% FLUSH 10 ML FLUSH IV FLUSH SCH ×2 (09:14→20:39)
[2017-02-12] MEDS: FUROSEMIDE 20 MG TAB PO SCH (09:15)
[2017-02-12] MEDS: PANTOPRAZOLE SOD 20 MG DELAYED RELEASE TAB PO SCH (09:15)
[2017-02-12] MEDS: ASPIRIN EC 81 MG TABEC PO SCH (09:15)
[2017-02-12] MEDS: ESCITALOPRAM OXALATE 10 MG TAB PO SCH (09:15)
[2017-02-12] MEDS: LEVOFLOXACIN 750 MG TAB PO SCH (09:16)
[2017-02-12] MEDS: METOPROLOL TARTRATE 25 MG TAB PO SCH (09:16)
[2017-02-12] MEDS: POTASSIUM CHLORIDE 10 MEQ CONTROLLED RELEASE TAB PO SCH (09:16)
[2017-02-12] MEDS: THEOPHYLLINE 200 MG EXTENDED RELEASE CAP PO SCH (09:25)
[2017-02-12] MEDS ORDERED: methylPREDNISolone SOD SUCC 125 MG/2 ML VIAL IV PUSH ONE (09:45)
--- NOTE | 2017-02-12 09:48 | HHI.PR ---
Subjective Remarks Nursing denies any deterioration since last night. However the patient states that he is still not back to his baseline. He says he is still currently short of breath even at rest and very minimal exertion. He says he usually has a greater endurance and tolerance at home (he does have exertional dyspnea but it is still worse at this time compared to his baseline). He himself also admits that he's had 3 pulmonary emboli in the past as well as a DVT. Nursing states that she was able to chart that he was saturating at room air at 96% this morning. Objective Vital Signs Date Time Temp Pulse Resp B/P (MAP) Pulse Ox O2 Delivery O2 Flow Rate FiO2 02/12/17 08:01 97.7 103 24 130/62 (84) 94 02/12/17 08:01 94 Room Air 02/12/17 07:33 95 Nasal Cannula 3.00 02/12/17 06:00 96 02/12/17 05:00 93 02/12/17 04:00 94 02/12/17 03:50 98 25 02/12/17 03:00 97 Bi-Pap 02/12/17 03:00 89 02/12/17 03:00 97.5 101 20 153/86 (108) 97 02/12/17 02:00 91 02/12/17 01:00 90 02/12/17 00:19 98 25 02/12/17 00:00 82 02/11/17 23:52 96 Nasal Cannula 2.00 02/11/17 23:00 82 02/11/17 23:00 96 Nasal Cannula 3.00 02/11/17 23:00 98.0 80 22 161/81 (107) 96 02/11/17 22:00 90 02/11/17 21:16 02/11/17 20:10 97 Nasal Cannula 3.00 02/11/17 20:05 98 Nasal Cannula 3.00 02/11/17 20:00 98 40 02/11/17 19:53 96 45 02/11/17 19:30 82 22 166/117 (133) 97 BiPAP 45 02/11/17 18:00 97 45 02/11/17 16:28 97 Nasal Cannula 2.00 02/11/17 16:23 24 97 Nasal Cannula 2.00 02/11/17 16:22 97 Nasal Cannula 2.00 02/11/17 16:22 79 24 132/89 (103) 96 Nasal Cannula 2.00 02/11/17 16:19 98.2 79 24 132/89 (103) 94 02/11/17 16:13 98.2 86 26 153/76 (101) 95 Room Air I/O 02/11/17 02/11/17 02/11/17 02/12/17 02/12/17 02/12/17 07:00 15:00 23:00 07:00 15:00 23:00 Intake Total 50 ml 600 ml Output Total 400 ml Balance 50 ml 200 ml Intake Oral 600 ml IV Total 50 ml Output Urine Total 400 ml # Voids 1 Result Diagram: 02/12/17 0451 02/12/17 0451 Imaging Last Impressions Lower Extremity Ultrasound 02/11/171617 Signed Impressions: Service Date/Time: Saturday, February 11, 2017 16:55 - CONCLUSION: No DVT. Manjit Lau Jr., MD Chest X-Ray 02/11/171617 Signed Impressions: Service Date/Time: Saturday, February 11, 2017 16:31 - CONCLUSION: Cardiomegaly. Clear lungs. Manjit Lau Jr., MD Objective Remarks Mildly labored abdominal belly breathing, no cyanosis Has profound expiratory wheezing heard bilaterally with slightly diminished breath sounds in the bases A/P Assessment and Plan 82-year-old male with past medical history significant for coronary artery disease, CHF, COPD, hypertension and hyperlipidemia presents with 1 week of increasing shortness of breath and dyspnea on exertion. 1. Shortness of breath - Suspect a COPD component exacerbation but have to rule out pulmonary embolism given elevated d-dimer and history of multiple pulmonary emboli - Ordering CTA, currently on heparin 2. COPD exacerbation Slight improvement since admission given that the patient is now saturating at room air but still is labored - We'll re-dose Solu-Medrol 225 mg every 8 hours for another 24 hours to expedite recovery and then taper down - pulmonology consult pending 3. Hypertension Controlled Continue home medications 4. CAD/status post CABG/CHF Continue home medications including aspirin/Plavix 5. Hyperlipidemia Continue home statin 6. new problem of Hyperglycemia noted in the nearing 300s (worsened w/ steroids) , Last A1c was 6.7% 2 yrs ago so at least is a diabetic by definition starting LDSS - adding on a1c 7. adding on PT for eval FEN Heart healthy diet Electrolytes: monitor and replete prn Heparin Richie Frank MD Feb 12, 2017 09:48
[2017-02-12] MEDS ORDERED: GLUCAGON 1 MG/ML VIAL OTHER PRN (10:00)
[2017-02-12] MEDS ORDERED: DEXTROSE 50% IN WATER 50 ML VIAL(D50) IV PUSH PRN (10:00)
[2017-02-12] MEDS: INSULIN NovoLIN REGULAR SUPPLEMENTAL SCALE SQ SCH ×3 (12:11→20:38)
[2017-02-12] MEDS ORDERED: IOHEXOL 350 MG/ML 10 ML VIAL (for RAD DIAG) IVCONTRAST ONE (13:10)
--- NOTE | 2017-02-12 13:14 | RADRPT ---
EXAM DATE/TIME: 02/12/2017 13:01 [place] COMPARISON: CT PULMONARY ANGIOGRAM, May 16, 2016, 11:09. INDICATIONS : Shortness of breath. IV CONTRAST: 50 cc Omnipaque 350 (iohexol) IV RADIATION DOSE: 23.28 CTDIvol (mGy) MEDICAL HISTORY : Cardiovascular disease. Hypertension. Chronic obstructive pulmonary disease.Diverticulitis SURGICAL HISTORY : Splenectomy. ENCOUNTER: Initial ACUITY: 1 day PAIN SCALE: 4/10 LOCATION: chest TECHNIQUE: Volumetric scanning of the chest was performed using a pulmonary embolism protocol MIP images were re constructed. Using automated exposure control and adjustment of the mA and/or kV according to patien t size, radiation dose was kept as low as reasonably achievable to obtain optimal diagnostic quality images. DICOM format image data is available electronically for review and comparison. Follow-up recommendations for detected pulmonary nodules are based at a minimum on nodule size and pa tient risk factors according to Fleischner Society Guidelines. FINDINGS: PULMONARY ARTERIES: No filling defects are seen in the pulmonary arteries through the segmental level. LUNGS: There is no consolidation or pneumothorax . No concerning pulmonary nodule is visualized. PLEURAE: There is no pleural thickening. Very small bilateral pleural effusions. MEDIASTINUM: Clips and wires suggest CABG with dense coronary atherosclerotic disease There is good visualization of the great vessels of the middle mediastinum. No evidence of mediastinal or hilar adenopathy/mass. MUSCULOSKELETAL: Within normal limits for patient age. MISCELLANEOUS: The visualized upper abdominal organs demonstrate no acute abnormality. Cholecystectomy clips CONCLUSION: Normal examination status post CABG. Very tiny pleural effusions similar to April 2016. No evidenc e of pulmonary embolism. Yury Carreno MD on February 12, 2017 at 13:11 Board Certified Radiologist. This report was verified electronically.
[2017-02-12] MEDS ORDERED: SODIUM CHLORID 0.9% 500 ML INJ 500 ML IV ONE (13:30)
[2017-02-12 14:31] LABS: HEMOGLOBIN A1a 1.6 %; HEMOGLOBIN A1b 2.6 %; HEMOGLOBIN Ao 79.4 %; HEMOGLOBIN LA1C 3.4 %; HEMOGLOBIN P3 5.1 %
--- NOTE | 2017-02-12 17:08 | MB ---
cc: Noman QUIROS DATE OF CONSULTATION: 02/12/2017 REASON FOR CONSULTATION: HISTORY: Mr. Cedillo is an 81-year-old white male well known to me, with severe chronic obstructive pulmonary disease and asthma, whose last hospitalization was here in March. I followed him carefully generally once or twice a month to manage his obstructive disease as an outpatient but yesterday got a call that he used five or six nebulized treatments and was not breathing any better, so I referred him to the emergency room for further evaluation. On presentation he was quite dyspneic, hypoxic and was placed on BiPAP. He received aerosol treatments along with IV corticosteroids and antibiotics as well as IV fluids and he is feeling much better. Currently on nasal oxygen two to three liters with adequate saturation, and much less dyspnea. He had no chest pain. He had no increasing edema. This was gradual in onset. He is chronically dyspneic but it just became worse yesterday. He has an extensive prior cardiovascular history. He is followed regularly by Dr. Lowry. He has also had a prior history of DVT with pulmonary embolism but has not been on anticoagulation therapy recently. He has had previous bypass surgery and a valve replacement. He has obstructive sleep apnea, previous splenectomy, BPH, prior cholecystectomy and back surgery several years ago. SOCIAL HISTORY: , living with his , former smoker but quit years ago. Occasionally drinks alcohol. MEDICATIONS IN THE HOSPITAL: Reviewed in the EMR. ALLERGIES: PROTAMINE ADHESIVES PHYSICAL EXAMINATION The patient is up ambulating, adequate saturation, afebrile, pulse 90, respiration 18-20, blood pressure 130/65. HEENT: Sclerae anicteric. Mucous membranes are moist. Neck: Neck veins are flat. Diffuse wheezing throughout both lungs. No congestion. Heart: Regular rhythm. No harsh murmur. No audible S3. Abdomen: Obese but soft. No significant peripheral edema. No cyanosis. A CTA reveals no thromboembolism, very small effusions but no evidence of heart failure and no pulmonary infiltrates. LABORATORY DATA: White counts 12.5, hemoglobin 11, platelets normal. PT/INR normal, BUN and creatinine are normal. BNP was 100. Theophylline level 5.4 and arterial blood gas taken yesterday while on BiPAP, pO2 was 113, pH 7.5 with a pCO2 of 25. He also had lower extremity ultrasounds yesterday which were negative. DISCUSSION Mr. Cedillo has very severe COPD with an asthmatic component, also has significant prior cardiovascular disease presents with increasing shortness of breath but responded very quickly to increased aerosol treatments along with corticosteroids. I have ordered an echo to assess his LV function. We will continue current therapy. Will drop the steroid dose back a bit. Further diagnostic and/or therapeutic intervention will depend on his ongoing clinical course. R. MD SATYA Montes/ROBINA /3:21 PM /4:30 PM
[2017-02-12] MEDS ORDERED: methylPREDNISolone SOD SUCC 125 MG/2 ML VIAL IV PUSH SCH (18:00)
--- NOTE | 2017-02-12 19:08 | EKG ---
Date Performed: 02/11/2017 Time Performed: 17:38:07 PTAGE: 82 years EKG: Sinus rhythm WITH FIRST DEGREE AV BLOCK MARKED LEFT AXIS DEVIATION RIGHT BUNDLE BRANCH BLOCK Since previous alo ng, no significant change noted ABNORMAL ECG PREVIOUS TRACING : 05/16/2016 09.53 DOCTOR: Chris Watts Interpretating Date/Time 02/12/2017 19:06:29
[2017-02-12] MEDS: TERAZOSIN HCL 5 MG CAP PO SCH (20:36)
[2017-02-12] MEDS: MONTELUKAST SODIUM 10 MG TAB PO SCH (20:36)
[2017-02-12] MEDS: ATORVASTATIN 40 MG TAB PO SCH (20:36)
[2017-02-12] MEDS: ZOLPIDEM TARTRATE 5 MG TAB PO PRN (20:37)
[2017-02-13] VITALS (31 sets, daily range): BP systolic 112–175; BP diastolic 62–87; PULSE 74–92; RESP 15–22; TEMP 97.8–98.2; O2SAT 95–97
[2017-02-13] MEDS: RESP: ALBUTEROL 2.5 MG/IPRATROPIUM 0.5 MG NEB (SCH) INH ×7 (00:34→23:59)
[2017-02-13] MEDS: methylPREDNISolone SOD SUCC 125 MG/2 ML VIAL IV PUSH SCH ×3 (04:57→20:27)
[2017-02-13] MEDS: HEPARIN SODIUM - SQ 10,000 UNITS/ML VIAL SQ SCH ×3 (04:57→20:28)
[2017-02-13 05:14] LABS: BICARBONATE 22.9 MEQ/L (21.0-32.0); POTASSIUM 3.9 MEQ/L (3.5-5.1)
[2017-02-13] MEDS: CARBIDOPA/LEVODOPA 25 MG/100 MG TAB PO SCH ×3 (09:40→19:02)
[2017-02-13] MEDS: FUROSEMIDE 20 MG TAB PO SCH (09:40)
[2017-02-13] MEDS: THEOPHYLLINE 200 MG EXTENDED RELEASE CAP PO SCH (09:40)
[2017-02-13] MEDS: CLOPIDOGREL 75 MG TAB PO SCH (09:40)
[2017-02-13] MEDS: ESCITALOPRAM OXALATE 10 MG TAB PO SCH (09:40)
[2017-02-13] MEDS: METOPROLOL TARTRATE 25 MG TAB PO SCH (09:41)
[2017-02-13] MEDS: PANTOPRAZOLE SOD 20 MG DELAYED RELEASE TAB PO SCH (09:41)
[2017-02-13] MEDS: ASPIRIN EC 81 MG TABEC PO SCH (09:41)
[2017-02-13] MEDS: POTASSIUM CHLORIDE 10 MEQ CONTROLLED RELEASE TAB PO SCH (09:41)
[2017-02-13] MEDS: LEVOFLOXACIN 750 MG TAB PO SCH (09:41)
[2017-02-13] MEDS: SODIUM CHLORIDE 0.9% FLUSH 10 ML FLUSH IV FLUSH SCH ×2 (09:45→20:27)
--- NOTE | 2017-02-13 12:09 | ECHRPT ---
Indication: Shortness of breath CONCLUSIONS Mild concentric left ventricular hypertrophy. Normal left ventricular size. Mild aortic valve stenosis. Aortic valve area is 1.3 cm. Aortic valve mean gradient is 20 mmHg. Diffuse calcification of the aortic valve. The left ventricular systolic function is normal with an estimated ejection fraction in the range of 60-65%. BP: 159 / 78 HR: 80 Rhythm: Other MEASUREMENTS (Male / Female) Normal Values Technical Quality:Fair 2D ECHO LV Diastolic Diameter PLAX 5.6 cm 4.2 - 5.9 / 3.9 - 5.3 cm LV Systolic Diameter PLAX 4.6 cm IVS Diastolic Thickness 1.4 cm 0.6 - 1.0 / 0.6 - 0.9 cm LVPW Diastolic Thickness 1.4 cm 0.6 - 1.0 / 0.6 - 0.9 cm LV Relative Wall Thickness 0.5 LVOT Diameter 2.2 cm M-MODE Aortic Root Diameter MM 2.6 cm LA Systolic Diameter MM 4.2 cm LA Ao Ratio MM 1.6 AV Cusp Separation MM 2.1 cm DOPPLER AV Peak Velocity 285.2 cm/s AV Peak Gradient 32.5 mmHg AV Mean Gradient 20.0 mmHg AV Velocity Time Integral 60.2 cm LVOT Peak Velocity 95.3 cm/s LVOT Peak Gradient 3.6 mmHg AV Area Cont Eq pk 1.3 cm LV E' Lateral Velocity 4.8 cm/s LV E' Septal Velocity 11.2 cm/s PV Peak Velocity 144.0 cm/s PV Peak Gradient 8.3 mmHg FINDINGS LEFT VENTRICLE The left ventricular systolic function is normal with an estimated ejection fraction in the range of 60-65%. Mild concentric left ventricular hypertrophy. Normal left ventricular size. RIGHT VENTRICLE Normal right ventricular size and systolic function. LEFT ATRIUM The left atrial size is normal. RIGHT ATRIUM The right atrial size is normal. ATRIAL SEPTUM Normal atrial septal thickness without atrial level shunting by limited color doppler interrogation. AORTA The aortic root and proximal ascending aorta are normal in size on limited imaging. MITRAL VALVE Structurally normal mitral valve. No mitral valve stenosis or regurgitation. AORTIC VALVE Mild aortic valve stenosis. Aortic valve area is 1.3 cm. Aortic valve mean gradient is 20 mmHg. Diffuse calcification of the aortic valve. TRICUSPID VALVE Structurally normal tricuspid valve. No tricuspid valve stenosis or regurgitation. PULMONARY VALVE The pulmonary valve is not well visualized. VESSELS The inferior vena cava is normal in size. PERICARDIUM No pericardial effusion. Yury Alonso MD, FACC (Electronically Signed) Final Date:13 February 2017 12:08
[2017-02-13] MEDS ORDERED: DEXTROSE 50% IN WATER 50 ML VIAL(D50) IV PUSH PRN (14:30)
[2017-02-13] MEDS ORDERED: GLUCAGON 1 MG/ML VIAL OTHER PRN (14:30)
--- NOTE | 2017-02-13 14:30 | HHI.PR ---
Subjective Remarks Nursing denies any deterioration since last night. However the patient he does not feel any improvement since yesterday. Says he is still getting short of breath periodically while just sitting. Patient was evaluated a second time later in the day as well and physical therapy says he was able to ambulate down the hallway but he got extremely winded when he was done. Patient says he does not feel like his respiratory status is anywhere near baseline where he would feel comfortable being at home. Objective Vital Signs Date Time Temp Pulse Resp B/P (MAP) Pulse Ox O2 Delivery O2 Flow Rate FiO2 02/13/17 11:30 82 02/13/17 11:30 98.0 82 22 131/72 (91) 95 02/13/17 11:30 98 Nasal Cannula 3.00 02/13/17 07:16 97 Nasal Cannula 3.00 02/13/17 07:00 95 Room Air 02/13/17 07:00 74 02/13/17 07:00 97.8 74 20 112/62 (79) 95 02/13/17 06:19 74 02/13/17 05:13 79 02/13/17 04:00 77 02/13/17 03:42 97.9 80 16 159/78 (105) 97 02/13/17 03:10 Room Air 02/13/17 03:10 77 02/13/17 02:47 75 02/13/17 01:39 77 02/13/17 00:00 87 02/12/17 23:00 74 02/12/17 23:00 97.8 85 18 142/80 (100) 96 02/12/17 23:00 Room Air 02/12/17 22:00 86 02/12/17 21:00 82 02/12/17 20:03 95 Nasal Cannula 3.00 02/12/17 20:00 74 02/12/17 19:05 Room Air 02/12/17 19:05 97.5 80 20 157/92 (113) 96 02/12/17 19:00 78 02/12/17 18:05 79 02/12/17 17:00 88 02/12/17 16:00 80 02/12/17 15:57 97.7 82 19 135/68 (90) 96 02/12/17 15:55 97 Room Air 02/12/17 15:00 77 I/O 02/12/17 02/12/17 02/12/17 02/13/17 02/13/17 02/13/17 07:00 15:00 23:00 07:00 15:00 23:00 Intake Total 600 ml 1580 ml 240 ml Output Total 400 ml 1080 ml 250 ml Balance 200 ml 500 ml -10 ml Intake Oral 600 ml 1080 ml 240 ml IV Total 500 ml Output Urine Total 400 ml 1080 ml 250 ml # Voids 1 # Bowel Movements 0 Result Diagram: 02/12/17 0451 02/13/17 0404 Objective Remarks Mildly labored abdominal belly breathing, no cyanosis Has profound expiratory wheezing heard bilaterally with slightly diminished breath sounds in the bases A/P Assessment and Plan 82-year-old male with past medical history significant for coronary artery disease, CHF, COPD, hypertension and hyperlipidemia presents with 1 week of increasing shortness of breath and dyspnea on exertion. 1. Shortness of breath - CT pulmonary angiogram is negative for emboli. See below. I independently reviewed CT scan and see no effusions. 2. COPD exacerbation No improvement since yesterday - Originally I had ordered 125 mg Solu-Medrol every 8 hours however pulmonology lowered the dosing. I have left a voicemail with pulmonology asking about re- dosing the steroids given that the patient still has relatively unchanged dyspnea at rest. 3. Hypertension Controlled Continue home medications 4. CAD/status post CABG/CHF Continue home medications including aspirin/Plavix 5. Hyperlipidemia Continue home statin 6. new problem of diabetes confirmed with A1c at 7.6% - still uncontrolled sugars this AM, increasing to MDSS, will consider starting metformin today FEN Heart healthy diet Electrolytes: monitor and replete prn Heparin Richie Frank MD Feb 13, 2017 14:30
[2017-02-13] MEDS: INSULIN NovoLIN REGULAR SUPPLEMENTAL SCALE SQ SCH ×2 (17:24→20:28)
[2017-02-13] MEDS: POLYETHYLENE GLYCOL 17 GM PKG PO SCH (20:27)
[2017-02-13] MEDS: ZOLPIDEM TARTRATE 5 MG TAB PO PRN (20:27)
[2017-02-13] MEDS: MONTELUKAST SODIUM 10 MG TAB PO SCH (20:28)
[2017-02-13] MEDS: ATORVASTATIN 40 MG TAB PO SCH (20:28)
[2017-02-13] MEDS: TERAZOSIN HCL 5 MG CAP PO SCH (20:28)
[2017-02-14] VITALS (31 sets, daily range): BP systolic 129–167; BP diastolic 58–82; PULSE 64–88; RESP 15–20; TEMP 97.1–98.1; O2SAT 94–97
[2017-02-14] MEDS: methylPREDNISolone SOD SUCC 125 MG/2 ML VIAL IV PUSH SCH ×3 (03:20→20:16)
[2017-02-14] MEDS: RESP: ALBUTEROL 2.5 MG/IPRATROPIUM 0.5 MG NEB (SCH) INH ×6 (04:17→23:39)
[2017-02-14] MEDS: HEPARIN SODIUM - SQ 10,000 UNITS/ML VIAL SQ SCH ×3 (06:10→21:32)
[2017-02-14] MEDS: INSULIN NovoLIN REGULAR SUPPLEMENTAL SCALE SQ SCH ×4 (08:00→21:33)
[2017-02-14] MEDS: ESCITALOPRAM OXALATE 10 MG TAB PO SCH (08:24)
[2017-02-14] MEDS: THEOPHYLLINE 200 MG EXTENDED RELEASE CAP PO SCH (08:24)
[2017-02-14] MEDS: POTASSIUM CHLORIDE 10 MEQ CONTROLLED RELEASE TAB PO SCH (08:24)
[2017-02-14] MEDS: PANTOPRAZOLE SOD 20 MG DELAYED RELEASE TAB PO SCH (08:24)
[2017-02-14] MEDS: CLOPIDOGREL 75 MG TAB PO SCH (08:24)
[2017-02-14] MEDS: LEVOFLOXACIN 750 MG TAB PO SCH (08:24)
[2017-02-14] MEDS: METOPROLOL TARTRATE 25 MG TAB PO SCH (08:24)
[2017-02-14] MEDS: POLYETHYLENE GLYCOL 17 GM PKG PO SCH (08:25)
[2017-02-14] MEDS: SODIUM CHLORIDE 0.9% FLUSH 10 ML FLUSH IV FLUSH SCH ×2 (08:25→20:21)
[2017-02-14] MEDS: FUROSEMIDE 20 MG TAB PO SCH (08:25)
[2017-02-14] MEDS: ASPIRIN EC 81 MG TABEC PO SCH (08:25)
[2017-02-14] MEDS: CARBIDOPA/LEVODOPA 25 MG/100 MG TAB PO SCH ×3 (08:25→16:10)
[2017-02-14] MEDS ORDERED: GLUCKIT15 (09:06)
[2017-02-14] MEDS ORDERED: LANCETS1 MI1 (09:06)
[2017-02-14] MEDS ORDERED: GLUCTES12 (09:06)
--- NOTE | 2017-02-14 09:07 | HHI.DCPOC ---
Discharge Care Plan Diagnosis: (1) Type 2 diabetes mellitus with hyperglycemia (2) COPD (chronic obstructive pulmonary disease) Goals to Promote Your Health * To prevent worsening of your condition and complications * To maintain your health at the optimal level Directions to Meet Your Goals Take your medications as prescribed Follow your dietary instruction Follow activity as directed Keep your appointments as scheduled Take your immunizations and boosters as scheduled If your symptoms worsen call your PCP, if no PCP go to Urgent Care Center or Emergency Room Smoking is Dangerous to Your Health. Avoid second hand smoke Call the 24-hour hour crisis hotline for domestic abuse at iRchie Frank MD Feb 14, 2017 09:07
[2017-02-14] MEDS ORDERED: SYMB160A INH (09:11)
[2017-02-14] MEDS ORDERED: PRED20 PO (09:15)
[2017-02-14] MEDS ORDERED: PRED50 PO (09:15)
[2017-02-14] MEDS: BUDESONIDE-FORMOTEROL 160/4.5 MCG INHALER INH SCH ×2 (10:00→20:21)
[2017-02-14] MEDS: metFORMIN HCL 500 MG TAB PO SCH ×2 (10:23→16:09)
--- NOTE | 2017-02-14 12:49 | HHI.PR ---
Subjective Remarks Nursing denies any deterioration since last night. patient says he feels improved partially compared to yesterday. He denies ever being diagnosed with diabetes in the past. Objective Vital Signs Date Time Temp Pulse Resp B/P (MAP) Pulse Ox O2 Delivery O2 Flow Rate FiO2 02/14/17 11:01 94 Room Air 02/14/17 11:01 71 02/14/17 11:01 97.1 72 20 129/58 (81) 94 02/14/17 10:00 72 02/14/17 09:00 82 02/14/17 08:34 95 Nasal Cannula 3.00 02/14/17 08:15 98.0 88 20 140/79 (99) 94 02/14/17 08:15 94 Room Air 02/14/17 08:00 88 02/14/17 07:01 74 02/14/17 06:16 78 02/14/17 05:00 77 02/14/17 04:00 73 02/14/17 03:38 98.0 75 15 167/81 (109) 97 02/14/17 03:38 97 Nasal Cannula 3.00 02/14/17 03:38 75 02/14/17 02:00 70 02/14/17 01:00 73 02/14/17 00:35 129/62 (84) 02/14/17 00:00 74 02/13/17 23:35 97 Nasal Cannula 3.00 02/13/17 23:35 98.2 77 15 175/87 (116) 97 02/13/17 23:00 74 02/13/17 22:00 76 02/13/17 21:00 80 02/13/17 20:00 78 02/13/17 19:17 97 Nasal Cannula 3.00 02/13/17 19:17 98.1 80 17 143/79 (100) 97 02/13/17 19:00 82 02/13/17 18:00 82 02/13/17 17:00 76 02/13/17 16:00 78 02/13/17 15:39 95 Nasal Cannula 3.00 02/13/17 15:30 96 Room Air 02/13/17 15:30 80 02/13/17 15:30 97.8 80 20 147/74 (98) 95 02/13/17 15:00 76 11/22/17 14:00 82 02/13/17 13:00 82 I/O 02/13/17 02/13/17 02/13/17 02/14/17 02/14/17 02/14/17 07:00 15:00 23:00 07:00 15:00 23:00 Intake Total 240 ml 875 ml 480 ml Output Total 250 ml 1000 ml 300 ml Balance -10 ml -125 ml 180 ml Intake Oral 240 ml 875 ml 480 ml Output Urine Total 250 ml 1000 ml 300 ml # Voids 3 # Bowel Movements 0 0 Result Diagram: 02/12/17 0451 02/13/17 0404 Objective Remarks Seen both sitting in chair at one point and ambulating to the bathroom. Has mildly labored breathing at best, no pursing of lips. Has some mild to moderate expiratory wheezing A/P Assessment and Plan 82-year-old male with past medical history significant for coronary artery disease, CHF, COPD, hypertension and hyperlipidemia presents with 1 week of increasing shortness of breath and dyspnea on exertion. 1. Shortness of breath - CT pulmonary angiogram is negative for emboli. See below. 2. COPD exacerbation - Has shown some improvement. Discussed with Dr. Mcnamara, we'll transition to oral steroids tomorrow with hopeful discharge in a.m. 3. Hypertension Controlled Continue home medications 4. CAD/status post CABG/CHF Continue home medications including aspirin/Plavix 5. Hyperlipidemia Continue home statin 6. diabetes confirmed with A1c at 7.6% - Continue meeting dose sliding scale, sugars running in 200s this a.m., started metformin, will likely discharge on metformin and glipizide. Patient extensively counseled follow-up with primary care doctor for fine-tuning. We' ll write prescription for glucose monitoring supplies. FEN Heart healthy diet Electrolytes: monitor and replete prn Heparin Richie Frank MD Feb 14, 2017 12:49
[2017-02-14] MEDS ORDERED: metFORMIN HCL 500 MG TAB PO SCH (16:00)
[2017-02-14] MEDS: ATORVASTATIN 40 MG TAB PO SCH (20:16)
[2017-02-14] MEDS: ZOLPIDEM TARTRATE 5 MG TAB PO PRN (20:16)
[2017-02-14] MEDS: TERAZOSIN HCL 5 MG CAP PO SCH (20:16)
[2017-02-14] MEDS: MONTELUKAST SODIUM 10 MG TAB PO SCH (20:16)
[2017-02-15] VITALS (12 sets, daily range): BP systolic 137–165; BP diastolic 71–75; PULSE 64–90; RESP 18; TEMP 97.5–98.3; O2SAT 95–97
[2017-02-15] MEDS: RESP: ALBUTEROL 2.5 MG/IPRATROPIUM 0.5 MG NEB (SCH) INH ×2 (03:07→08:31)
[2017-02-15] MEDS: HEPARIN SODIUM - SQ 10,000 UNITS/ML VIAL SQ SCH (06:00)
[2017-02-15] MEDS ORDERED: PRED20 PO (08:37)
[2017-02-15] MEDS ORDERED: PRED10 PO (08:37)
[2017-02-15] MEDS ORDERED: PRED5TAB PO (08:37)
[2017-02-15] MEDS ORDERED: MAGNESIUM HYDROXIDE SUSP 30 ML CUP PO ONE (08:45)
[2017-02-15] MEDS ORDERED: GLIP1TAB49 PO (08:45)
[2017-02-15] MEDS ORDERED: predniSONE 20 MG TAB PO SCH (09:00)
[2017-02-15] MEDS: ASPIRIN EC 81 MG TABEC PO SCH (09:04)
[2017-02-15] MEDS: FUROSEMIDE 20 MG TAB PO SCH (09:04)
[2017-02-15] MEDS: LEVOFLOXACIN 750 MG TAB PO SCH (09:05)
[2017-02-15] MEDS: CARBIDOPA/LEVODOPA 25 MG/100 MG TAB PO SCH (09:05)
[2017-02-15] MEDS: ESCITALOPRAM OXALATE 10 MG TAB PO SCH (09:05)
[2017-02-15] MEDS: CLOPIDOGREL 75 MG TAB PO SCH (09:05)
[2017-02-15] MEDS: METOPROLOL TARTRATE 25 MG TAB PO SCH (09:05)
[2017-02-15] MEDS: POTASSIUM CHLORIDE 10 MEQ CONTROLLED RELEASE TAB PO SCH (09:06)
[2017-02-15] MEDS: PANTOPRAZOLE SOD 20 MG DELAYED RELEASE TAB PO SCH (09:06)
[2017-02-15] MEDS: THEOPHYLLINE 200 MG EXTENDED RELEASE CAP PO SCH (09:06)
[2017-02-15] MEDS: metFORMIN HCL 500 MG TAB PO SCH (09:07)
[2017-02-15] MEDS ORDERED: METF-382 PO (09:32)
[2017-02-15] MEDS: INSULIN NovoLIN REGULAR SUPPLEMENTAL SCALE SQ SCH (09:47)
[2017-02-15] MEDS: SODIUM CHLORIDE 0.9% FLUSH 10 ML FLUSH IV FLUSH SCH (09:47)
--- NOTE | 2017-02-15 15:01 | HHI.DS ---
Discharge Summary Admission Date Feb 11, 2017 at 19:05 Discharge Date: Feb 15, 2017 Admitting Diagnosis COPD exacerbation (1) COPD with exacerbation ICD Code: J44.1 - Chronic obstructive pulmonary disease with (acute) exacerbation (2) Type 2 diabetes mellitus with hyperglycemia ICD Code: E11.65 - Type 2 diabetes mellitus with hyperglycemia Procedures none Brief History - From Admission 82-year-old male with a past medical history significant for CHF, CAD, hypertension, hyperlipidemia and COPD presents with a one-week history of increasing shortness of breath and dyspnea on exertion. The patient denies fever/chills. Endorses increasing cough productive of clear sputum. Oxygen saturation 97% on 2 L nasal cannula, patient now on BiPAP. Chest x-ray significant only for cardiomegaly, no acute process. BNP 101. Chemistry at baseline. CBC without leukocytosis. CBC/BMP: 02/12/17 0451 02/13/17 0404 Significant Findings Laboratory Tests Test 02/13/17 04:04 Blood Urea Nitrogen 26 MG/DL (7-18) Random Glucose 223 MG/DL (74-106) Chloride Level 108 MEQ/L (98-107) Estimat Glomerular Filtration Rate 74 ML/MIN (>89) PE at Discharge Very minimally labored breathing, has mild wheezing in the bases, otherwise has good breath sounds with good aeration, sitting up in chair Hospital Course Patient was admitted, started on IV steroids and DuoNeb treatments. Pulmonology was consulted, the patient showed slow improvement over the next 48 hours and was eventually transitioned to oral steroids at which point it was felt he was stable to go home both objectively and subjectively. He had an echocardiogram performed which showed an EF of 60-65%. The patient was also counseled that he was reconfirmed diabetic with an A1c of 7.6 and that he would need to be on medications for this. He tolerated metformin well and with insulin his sugars came down to the 100s. He is being discharged on metformin and glipizide instead and was counseled that this needs to be fine-tuned as an outpatient and that he may need to eventually go on insulin if decided by his primary care provider. He was discharged with scripts for glucose monitoring supplies as well as a prolonged steroid taper. He is to follow-up with pulmonology closely after discharge. Pt Condition on Discharge: Stable Discharge Disposition: Discharge Home Discharge Time: <= 30 minutes Discharge Instructions DIET: Follow Instructions for: Heart Healthy Diet, Diabetic Diet Activities you can perform: Weight Bearing as Yaw Other Activity Instructions: May use home single point cane rolling walker as needed. Follow up Referrals: Diabetic Education - 1 Week with Ad[facility]abetic Education PCP Follow-up - 1 Week Pulmonology - 2 Weeks with Noman Mcnamara MD New Medications: Blood Glucose Monitoring W/Device (Glucocom Blood Glucose Mo W/Device) 1 Kit Kit KIT .ROUTE DIRECTED for Blood Sugar Management, #1 Check sugars three times a day before meals Glipizide ER (Glipizide ER) 5 Mg Mikayla 5 MG PO DAILY for Blood Sugar Management, #30 TAB 0 Refills Take with breakfast or first main meal of the day. Glucocom Test Strips (Glucocom Test Strips) 1 Anahi Anahi EA .ROUTE DIRECTED for Blood Sugar Management, #1 Check sugars three times a day before meals Lancets (Lancets) 1 Mis Mis EA .ROUTE DIRECTED for Blood Sugar Management, #1 0 Refills Check sugars three times a day before meals Metformin ER (Metformin ER) 1,000 Mg Mikayla 1000 MG PO BIDAC for Blood Sugar Management, #60 TAB 0 Refills With evening meal Prednisone (Prednisone) 20 Mg Tab 30 MG PO BID for Broncospasm, #12 TAB 0 Refills 1.5 tablets (20 mg tabs) by mouth twice a day Prednisone (Prednisone) 20 Mg Tab 20 MG PO BID for Broncospasm, #8 TAB 0 Refills Prednisone (Prednisone) 10 Mg Tab 10 MG PO BID for Broncospasm, #8 TAB 0 Refills Prednisone (Prednisone) 5 Mg Tab 5 MG PO BID for Broncospasm, #16 TAB 0 Refills Continued Medications: Aspirin (Aspirin) 81 Mg Tabdr 81 MG PO DAILY, TAB Atorvastatin (Atorvastatin) 40 Mg Tab 40 MG PO HS for Cholesterol Management, #30 TAB 0 Refills Clopidogrel (Clopidogrel) 75 Mg Tab 75 MG PO DAILY for Blood Clot Prevention, #30 TAB 0 Refills Escitalopram (Escitalopram) 10 Mg Tab 10 MG PO DAILY, #30 TAB 0 Refills Ferrous Sulfate (Ferrous Sulfate) 325 Mg Tab 325 MG PO TID for Nutritional Supplement, #30 TAB 0 Refills Furosemide (Furosemide) 20 Mg Tab 20 MG PO DAILY, #30 TAB 0 Refills Ipratropium HFA 12.9 GM Inh (Atrovent HFA 12.9 GM Inh) 17 Mcg/Act Aer 2 PUFF INH QID for Breathing Treatment, #1 INHALER 0 Refills Magnesium Hydroxide Liq (Milk of Magnesia Liq) 400 Mg/5 Ml Susp 30 ML PO Q6H PRN for CONSTIPATION, #1 BOTTLE 0 Refills Melatonin (Sm Melatonin) 3 Mg Tab 3 MG PO HS for Insomnia Metoprolol Tartrate (Metoprolol Tartrate) 25 Mg Tab 12.5 MG PO DAILY, #60 TAB 0 Refills Mometasone 120 Act Inh (Asmanex 120 Act Twisthaler) 220 Mcg/Act Inh 2 PUFF INH BID for Asthma Management, #1 INHALER 0 Refills Montelukast (Montelukast) 10 Mg Tab 10 MG PO HS, #30 TAB 0 Refills Multiple Vitamins W/ Minerals (Multivitamin Adults) 1 Tab 1 TAB PO DAILY for Nutritional Supplement, TAB 0 Refills Omeprazole (Omeprazole) 20 Mg Tab 20 MG PO DAILY, #30 TAB 0 Refills Polyethylene Glycol 3350 Powder (Miralax Powder) 17 Gm Powd 17 GM PO DAILY for Constipation, #1 BOTTLE 0 Refills Mix and dissolve one measuring cap-ful (17 grams) in water or juice. Potassium Chloride ER (Potassium Chloride CR) 10 Meq Tab 20 MEQ PO DAILY, TAB Probiotic Product (Diff-Stat) 1 Cap Cap 1 CAP PO BID Terazosin (Terazosin) 5 Mg Cap 5 MG PO HS, #30 CAP 0 Refills Theophylline ER 24 HR (Theophylline ER 24 HR) 400 Mg Tab 400 MG PO DAILY, #30 TAB 0 Refills Tiotropium-Olodaterol Inh (Stiolto Respimat Inh) 2.5-2.5 Mcg/Act Aero 2 PUFF INH DAILY for COPD, #1 INHALER 0 Refills Zolpidem (Ambien) 5 Mg Tab 5 MG PO HS PRN for INSOMNIA, TAB 0 Refills Discontinued Medications: Carbidopa-Levodopa (Sinemet) 25-100 Mg Tab 1 TAB PO TIDAC for Parkinson Disease Mgmt, #90 TAB 0 Refills Prednisone (Prednisone) 20 Mg Tab 20 MG PO DAILY, TAB 0 Refills Masoodi,Richie Luis MD Feb 15, 2017 15:01
== END 2017-02-15 10:27 | disposition home or self-care (01) | DRG 192 ==
LOC: NEPC 16:10 → NEDA 19:05 → HCPC 21:26
PROVIDERS: ADMIT Hospitalist; ATTEND Hospitalist
PROC: 5A09357 Assistance with Respiratory Ventilation, Less than 24 Consecutive Hours, Continuous Positive Airway Pressure (ICD-10-PCS; principal; 2017-02-11)
DX: J44.1 Chronic obstructive pulmonary disease with (acute) exacerbation (principal); I11.0 Hypertensive heart disease with heart failure; I50.9 Heart failure, unspecified; E11.65 Type 2 diabetes mellitus with hyperglycemia; E11.42 Type 2 diabetes mellitus with diabetic polyneuropathy; I48.91 Unspecified atrial fibrillation; Z95.1 Presence of aortocoronary bypass graft; G47.33 Obstructive sleep apnea (adult) (pediatric); N40.0 Benign prostatic hyperplasia without lower urinary tract symptoms; K21.9 Gastro-esophageal reflux disease without esophagitis; K22.70 Barrett's esophagus without dysplasia; H91.90 Unspecified hearing loss, unspecified ear; I25.10 Atherosclerotic heart disease of native coronary artery without angina pectoris; F41.9 Anxiety disorder, unspecified; M19.90 Unspecified osteoarthritis, unspecified site; I71.4 Abdominal aortic aneurysm, without rupture; R09.02 Hypoxemia; E78.5 Hyperlipidemia, unspecified; Z87.891 Personal history of nicotine dependence; Z86.718 Personal history of other venous thrombosis and embolism; I25.2 Old myocardial infarction; Z95.5 Presence of coronary angioplasty implant and graft; Z86.711 Personal history of pulmonary embolism; Z95.2 Presence of prosthetic heart valve
CPT/HCPCS: 36600; 71010; 71275; 76937; 80048; 80053; 80198; 82805; 82948; 83036; 83880; 84484; 85025; 85379; 85610; 85730; 93005; 93306; 93971; 94002; 94003; 94150; 94640; 94664; 96374; J1644; J1956; J2930; J7040; J7512; J7613; Q9967

== ENCOUNTER 2017-03-13 15:17 | Observation (INO) | payer MEDICARE ==
[~2017-03-13 15:17] MED LIST changes: +GLIP1TAB49 PO; +GLUCKIT15; +GLUCTES12; +LANCETS1 MI1; +METF-382 PO; +PRED10 PO; +PRED5TAB PO; -SINE25TA PO; -TAMS0.4C4 PO
[2017-03-13 15:20] VITALS: BP 106/60; PULSE 82; RESP 18; TEMP 97.9; O2SAT 96
[2017-03-13 15:59] LABS: AUTOMATED NEUTROPHIL # 7.3 TH/MM3 (1.8-7.7); BASOPHIL % 0.2 % (0.0-2.0); HEMATOCRIT 30.4 % (39.0-51.0); LYMPH % 3.9 % (9.0-44.0); LYMPHOCYTE # 0.3 TH/MM3 (1.0-4.8); MEAN CELL VOLUME 92.3 FL (80.0-100.0); MEAN CORPUSCULAR HEMOGLOBIN 30.4 PG (27.0-34.0); MEAN PLATELET VOLUME 9.2 FL (7.0-11.0); MONO % 3.3 % (0.0-8.0); MONOCYTE # 0.3 TH/MM3 (0-0.9); NEUT % 92.6 % (16.0-70.0); PLATELET COUNT 133 TH/MM3 (150-450); RED CELL DISTRIBUTION WIDTH 17.7 % (11.6-17.2); WHITE BLOOD COUNT 7.9 TH/MM3 (4.0-11.0)
[2017-03-13 16:12] LABS: PROTHROMBIN TIME - PATIENT 10.2 SEC (9.8-11.6)
[2017-03-13 16:19] LABS: ALBUMIN 3.1 GM/DL (3.4-5.0); ALT (GPT) 28 U/L (12-78); AST (GOT) 11 U/L (15-37); BICARBONATE 24.3 MEQ/L (21.0-32.0); BLOOD UREA NITROGEN 32 MG/DL (7-18); CALCIUM 8.3 MG/DL (8.5-10.1); CHLORIDE 107 MEQ/L (98-107); CREATININE 1.13 MG/DL (0.60-1.30); GLOMERULAR FILTRATION RATE 62 ML/MIN (>89); GLUCOSE,RANDOM 350 MG/DL (74-106); SODIUM (NA) 140 MEQ/L (136-145)
[2017-03-13 16:21] LABS: ALKALINE PHOSPHATASE 52 U/L (45-117); TOTAL BILIRUBIN ADULT 0.3 MG/DL (0.2-1.0); TOTAL PROTEIN 6.2 GM/DL (6.4-8.2)
[2017-03-13 16:42] LABS: BANDS 4 % (0-6); BASOPHILS 1 % (0-2); LYMPHOCYTES 3 % (9-44); METAMYELOCYTES 3 % (0-1); MONOCYTES 4 % (0-8); NEUTROPHIL # MANUAL DIFF 7.3 TH/MM3 (1.8-7.7); POLYS (SEG NEUTROPHILS) 85 % (16-70)
[2017-03-13 16:43] LABS: BURR CELLS 2+ (NORMAL); HOWELL-JOLLY BODIES PRESENT (NONE SEEN); KERATOCYTES 1+ (NORMAL); OVALOCYTES 1+ (NORMAL); TEARDROP RBCS 1+ (NORMAL)
[2017-03-13] MEDS ORDERED: PANTOPRAZOLE INJ 80 MG in SODIUM CHLORIDE 0.9% INJ 35 ML IV ONE (17:07)
--- NOTE | 2017-03-13 17:17 | PD ---
HPI Chief Complaint: GI Complaint Time Seen by Provider: 17:00 Travel History International Travel<30 days: No Contact w/Intl Traveler<30days: No Traveled to known affect area: No History of Present Illness HPI 82-year-old male here for evaluation of rectal bleeding and melena. The patient reports that 2 days ago he had 5 episodes of a significant amount of bright red blood per rectum. Today he has been having dark black stools. He denies abdominal or rectal pain. He is on aspirin and Plavix, no other antiplatelets or anticoagulants. He reports feeling short of breath, however he has COPD. Shortness of breath is at rest, worse with exertion. He also reports feeling generalized weakness and malaise. He reports that he had a colonoscopy and endoscopy a couple of years ago and showed some polyps that were removed. PFSH Past Medical History Hx Anticoagulant Therapy: Yes (PLAVIX) AAA: Yes Arthritis: No Asthma: No Atrial Fibrillation: Yes Autoimmune Disease: No Blood Disorders: No Anxiety: Yes Depression: Yes Heart Rhythm Problems: Yes (AFIB ) Cancer: No Cardiac Catheterization: No Cardiovascular Problems: Yes (CABG X 2) High Cholesterol: Yes Chemotherapy: No Chest Pain: Yes Congestive Heart Failure: Yes COPD: Yes Cerebrovascular Accident: No Coronary Artery Disease: Yes Diabetes: No Diminished Hearing: Yes (HEARING AIDS ) Diverticulitis: Yes Endocrine: No Gastrointestinal Disorders: Yes (Mcgee's Esophagus) GERD: No Glaucoma: No Genitourinary: Yes (BPH) Headaches: No Hepatitis: No Hiatal Hernia: No Hypertension: Yes Immune Disorder: No Implanted Vascular Access Dvce: No Kidney Stones: No Musculoskeletal: Yes (BACK) Neurologic: Yes (spinal stenosis) Psychiatric: No Reproductive: No Respiratory: Yes (COPD) Immunizations Current: Yes Migraines: No Myocardial Infarction: Yes Radiation Therapy: No Renal Failure: No Seizures: No Sickle Cell Disease: No Sleep Apnea: Yes (CPAP AT NIGHT) Thyroid Disease: No Ulcer: No PNEUMOCCOCAL Vaccine (Year): 1 Past Surgical History Abdominal Surgery: Yes (SPLEENECTOMY) AICD: No Arteriovenous Shunt: No Cardiac Surgery: Yes (CABG) Cholecystectomy: Yes Coronary Artery Bypass Graft: Yes Coronary Stent: Yes Ear Surgery: No Endocrine Surgery: No Eye Surgery: No Genitourinary Surgery: No Gynecologic Surgery: No Insulin Pump: No Joint Replacement: No Neurologic Surgery: Yes ( L3/L4 BACK SURGERY ) Oral Surgery: No Pacemaker: No Thoracic Surgery: No Valve Replacement: Yes Other Surgery: Yes (SPLEEN REMOVED, L3/L4 BACK SURGERY ) Social History Alcohol Use: No (OCCASSIONALLY ) Tobacco Use: No Substance Use: No Allergies-Medications (Allergen,Severity, Reaction): Coded Allergies: protamine (Verified Allergy, Severe, Anaphylaxis, 02/11/17) adhesive (Verified Allergy, Intermediate, 02/11/17) PATIENT DENIES *MDRO Multi-Drug Resistant Organism (Verified Adverse Reaction, Unknown, Cleared, 02/11/17) MRSA MRSA PCR Screen negative 06/29/14 and 07/02/14. Cleared per infection control Reported Meds & Prescriptions Reported Meds & Active Scripts Active Metformin ER (Metformin HCl) 1,000 Mg Mikayla 1,000 Mg PO BIDAC With evening meal Glipizide ER (Glipizide) 5 Mg Mikayla 5 Mg PO DAILY Take with breakfast or first main meal of the day. Glucocom Test Strips (Blood Glucose Test Strips) 1 Anahi Anahi Ea .ROUTE DIRECTED Check sugars three times a day before meals Lancets 1 Mis Mis Ea .ROUTE DIRECTED Check sugars three times a day before meals Glucocom Blood Glucose Mo W/Device (Device) 1 Kit Kit Kit .ROUTE DIRECTED Check sugars three times a day before meals Atrovent HFA 12.9 GM Inh (Ipratropium [place]) 17 Mcg/Act Aer 2 Puff INH QID Reported Prednisone 20 Mg Tab 30 Mg PO DIRECTED 40 MG twice a day x 3 days, then 20 MG daily x 3 days, then 10 MG daily x 3 days Potassium Chloride ER (Potassium Chloride) 20 Meq Tab 20 Meq PO DAILY Ambien (Zolpidem Tartrate) 5 Mg Tab 5 Mg PO HS PRN Sm Melatonin (Melatonin) 3 Mg Tab 3 Mg PO HS Milk of [place]es[place] Liq (Magnesium Hydroxide) 400 Mg/5 Ml Susp 30 Ml PO Q6H PRN Diff-Stat (Probiotic Product) 1 Cap Cap 1 Cap PO BID Theophylline ER 24 HR (Theophylline) 400 Mg Tab 400 Mg PO DAILY Terazosin (Terazosin HCl) 5 Mg Cap 5 Mg PO HS Omeprazole 20 Mg Tab 20 Mg PO DAILY Stiolto Respimat Inh (Tiotropium-Olodaterol Inh) 2.5-2.5 Mcg/Act Aero 2 Puff INH DAILY Montelukast (Montelukast Sodium) 10 Mg Tab 10 Mg PO HS Asmanex 120 Act Twisthaler (Mometasone 120 Act Inh) 220 Mcg/Act Inh 2 Puff INH BID Metoprolol Tartrate 25 Mg Tab 12.5 Mg PO DAILY Furosemide 20 Mg Tab 20 Mg PO DAILY Escitalopram (Escitalopram Oxalate) 10 Mg Tab 10 Mg PO DAILY Clopidogrel (Clopidogrel Bisulfate) 75 Mg Tab 75 Mg PO DAILY Atorvastatin (Atorvastatin Calcium) 40 Mg Tab 40 Mg PO HS Aspirin 81 Mg Tabdr 81 Mg PO DAILY Review of Systems Except as stated in HPI: all other systems reviewed are Neg Physical Exam Narrative GENERAL: Well-developed, well-nourished, comfortable, no apparent distress. SKIN: Focused skin assessment warm/dry. No pallor. HEAD: Atraumatic. Normocephalic. EYES: Pupils equal and round. No scleral icterus. No injection or drainage. ENT: Mucous membranes pink and moist. NECK: Trachea midline. No JVD. CARDIOVASCULAR: Regular rate and rhythm. RESPIRATORY: No accessory muscle use. Clear to auscultation. Breath sounds equal bilaterally. GASTROINTESTINAL: Abdomen soft, non-tender, nondistended. RECTUM: No masses, no fissures, no hemorrhoids, heme positive black stool. MUSCULOSKELETAL: No obvious deformities. No clubbing. No cyanosis. No edema. NEUROLOGICAL: Awake and alert. No obvious cranial nerve deficits. Motor grossly within normal limits. Normal speech. PSYCHIATRIC: Appropriate mood and affect; insight and judgment normal. Data Data Last Documented VS Vital Signs Date Time Temp Pulse Resp B/P (MAP) Pulse Ox O2 Delivery O2 Flow Rate FiO2 03/13/17 17:37 67 16 133/80 (97) 97 Room Air 03/13/17 15:20 97.9 Orders Orders Complete Blood Count With Diff (03/13/17 15:30) Comprehensive Metabolic Panel (03/13/17 15:30) Prothrombin Time / Inr (Pt) (03/13/17 15:30) Act Partial Throm Time (Ptt) (03/13/17 15:30) Type And Screen (03/13/17 15:30) Electrocardiogram (03/13/17 ) Chest, Single Ap (03/13/17 17:06) Sodium Chloride 0.9... W/Pantoprazole In (03/13/17 17:07) Sodium Chloride 0.9... W/Pantoprazole In (03/13/17 17:07) Labs Laboratory Tests Test 03/13/17 15:40 White Blood Count 7.9 TH/MM3 Red Blood Count 3.30 MIL/MM3 Hemoglobin 10.0 GM/DL Hematocrit 30.4 % Mean Corpuscular Volume 92.3 FL Mean Corpuscular Hemoglobin 30.4 PG Mean Corpuscular Hemoglobin Concent 33.0 % Red Cell Distribution Width 17.7 % Platelet Count 133 TH/MM3 Mean Platelet Volume 9.2 FL Neutrophils (%) (Auto) 92.6 % Lymphocytes (%) (Auto) 3.9 % Monocytes (%) (Auto) 3.3 % Eosinophils (%) (Auto) 0.0 % Basophils (%) (Auto) 0.2 % Neutrophils # (Auto) 7.3 TH/MM3 Lymphocytes # (Auto) 0.3 TH/MM3 Monocytes # (Auto) 0.3 TH/MM3 Eosinophils # (Auto) 0.0 TH/MM3 Basophils # (Auto) 0.0 TH/MM3 CBC Comment AUTO DIFF Differential Total Cells Counted 100 Neutrophils % (Manual) 85 % Band Neutrophils % 4 % Lymphocytes % 3 % Monocytes % 4 % Basophils % 1 % Neutrophils # (Manual) 7.3 TH/MM3 Metamyelocytes 3 % Differential Comment FINAL DIFF MANUAL Platelet Estimate LOW Platelet Morphology Comment NORMAL Tear Drop Cells 1+ Ovalocytes 1+ [place] Bodies PRESENT [place] Cells 2+ Keratocytes 1+ Prothrombin Time 10.2 SEC Prothromb Time International Ratio 1.0 RATIO Activated Partial Thromboplast Time 20.0 SEC Blood Urea Nitrogen 32 MG/DL Creatinine 1.13 MG/DL Random Glucose 350 MG/DL Total Protein 6.2 GM/DL Albumin 3.1 GM/DL Calcium Level 8.3 MG/DL Alkaline Phosphatase 52 U/L Aspartate Amino Transf (AST/SGOT) 11 U/L Alanine Aminotransferase (ALT/SGPT) 28 U/L Total Bilirubin 0.3 MG/DL Sodium Level 140 MEQ/L Potassium Level 4.2 MEQ/L Chloride Level 107 MEQ/L Carbon Dioxide Level 24.3 MEQ/L Anion Gap 9 MEQ/L Estimat Glomerular Filtration Rate 62 ML/MIN MDM Medical Decision Making Medical Screen Exam Complete: Yes Emergency Medical Condition: Yes Medical Record Reviewed: Yes Differential Diagnosis Upper GI bleed, lower GI bleed, anemia Narrative Course Initial vital signs show heart rate 82, blood pressure 106/60, pulse ox 96% on room air, tympanic temp of 97.9F. CBC: WBC 7.9, hemoglobin 10, hematocrit 30.4, platelets 133. Neutrophils 92.6% . Hemoglobin is slightly lower than the patient's baseline. CMP is remarkable for random glucose 350, BUN 32. Coags are within normal limits. Patient has heme positive black stool. He is on aspirin and Plavix. His glucose is 350. Chart review shows that he is supposed to be on metformin and glipizide, however the patient has not been taking this medication and tells me he does not have diabetes. He has been on prednisone for his COPD, likely attributed into his elevated neutrophil percentage as well as his hyperglycemia. Patient was given a Protonix bolus and started on a Protonix drip. Chest x-ray shows no acute abnormality or significant interval change. Compensated cardiomegaly. Case discussed with hospitalist Dr. Jama who will admit the patient to her service. Diagnosis Primary Impression: Brody Haskins MD Mar 13, 2017 17:17
[2017-03-13] MEDS ORDERED: PRED20 PO (17:25)
[2017-03-13] MEDS ORDERED: POTA-163 PO (17:25)
--- NOTE | 2017-03-13 17:29 | RADRPT ---
EXAM DATE/TIME: 03/13/2017 17:13 [place] COMPARISON: CHEST SINGLE AP, February 11, 2017, 16:31. INDICATIONS : Short of breath for 1 month. MEDICAL HISTORY : Congestive heart failure. Cardiovascular disease. Hypertension. Chronic obstructive pulmonary d isease. Diverticulitis SURGICAL HISTORY : Splenectomy. ENCOUNTER: Initial ACUITY: 1 month PAIN SCORE: 0/10 LOCATION: Bilateral chest FINDINGS: Median sternotomy wires. No significant focal pleural-parenchymal opacities. Cardiac silhouette remai ns enlarged. Remainder of the exam is unchanged. CONCLUSION: 1. No acute abnormality or significant interval change. 2. Compensated cardiomegaly. Williams Dow MD on March 13, 2017 at 17:26 Board Certified Radiologist. This report was verified electronically.
[2017-03-13 17:37] VITALS: BP 133/80; PULSE 67; RESP 16; O2SAT 97
[2017-03-13] MEDS: PANTOPRAZOLE INJ 80 MG in SODIUM CHLORIDE 0.9% INJ 100 ML IV SCH (17:37)
[2017-03-13] MEDS ORDERED: NALOXONE HCL 0.4 MG/ML AMP IV PUSH PRN (18:30)
[2017-03-13] MEDS ORDERED: SODIUM CHLORIDE 0.9% FLUSH 10 ML FLUSH IV FLUSH PRN (18:30)
[2017-03-13] MEDS: SODIUM CHLORIDE 0.9% FLUSH 10 ML FLUSH IV FLUSH SCH (21:00)
[2017-03-13 21:47] VITALS: BP 162/88; PULSE 63; RESP 22; TEMP 97.4; O2SAT 98
[2017-03-13] MEDS ORDERED: DEXTROSE 50% IN WATER 50 ML VIAL(D50) IV PUSH PRN (23:00)
[2017-03-13] MEDS ORDERED: GLUCAGON 1 MG/ML VIAL OTHER PRN (23:00)
[2017-03-13 23:55] VITALS: O2SAT 98
[2017-03-13 23:56] LABS: HEMATOCRIT 28.2 % (39.0-51.0); HEMOGLOBIN 9.1 GM/DL (13.0-17.0)
[2017-03-14] VITALS (12 sets, daily range): BP systolic 116–146; BP diastolic 64–74; PULSE 57–69; RESP 15–24; TEMP 97.6–98.4; O2SAT 94–100
[2017-03-14] MEDS ORDERED: ZOLPIDEM TARTRATE 5 MG TAB PO PRN (00:45)
--- NOTE | 2017-03-14 00:55 | HHI.HP ---
[facility] Jw Rashid MD Admission Diagnosis Melena Diagnoses: Travel History International Travel<30 Days: No Contact w/Intl Traveler <30 Da: No Traveled to Known Affected Are: No History of Present Illness 82-year-old male with past medical history significant for AMILCAR, COPD on 3 L nasal cannula continuously, CAD, hypertension, hyperlipidemia, diabetes mellitus and CHF (last echo done on 02/13/17 showed an EF of 60-65%) presents to the emergency department with a chief complaint of bright red blood per rectum and melena. The patient reports that 2 days ago he started noticing significant amounts of bright red blood pouring into the toilet when he had a bowel movement. He states that today he had black, tarry stools. He denies any dizziness or lightheadedness. Shortness of breath is at baseline. Denies any chest pain/pressure. H&H on admission was 10.0/30.4. Review of Systems Denies fever or chills Denies blurry vision, otorrhea, rhinorrhea Denies sore throat and cough No chest pain, palpitations, positive shortness of breath, at baseline No abdominal pain Denies constipation/diarrhea/nausea/vomiting Denies muscle pain/weakness No rashes Past Family Social History Past Medical History AMILCAR COPD on 3 L nasal cannula CAD Hypertension Hyperlipidemia Diabetes mellitus CHF (EF 60-65%) BPH Past Surgical History CABG 2, 6 and 4 vessel respectively Stent 1 placed one year ago, patient currently on aspirin and Plavix Splenectomy secondary to trauma Cholecystectomy Reported Medications Reported Meds & Active Scripts Active Metformin ER (Metformin HCl) 1,000 Mg Mikayla 1,000 Mg PO BIDAC With evening meal Glipizide ER (Glipizide) 5 Mg Mikayla 5 Mg PO DAILY Take with breakfast or first main meal of the day. Glucocom Test Strips (Blood Glucose Test Strips) 1 Anahi Anahi Ea .ROUTE DIRECTED Check sugars three times a day before meals Lancets 1 Mis Mis Ea .ROUTE DIRECTED Check sugars three times a day before meals Glucocom Blood Glucose Mo W/Device (Device) 1 Kit Kit Kit .ROUTE DIRECTED Check sugars three times a day before meals Atrovent HFA 12.9 GM Inh (Ipratropium [place]) 17 Mcg/Act Aer 2 Puff INH QID Reported Prednisone 20 Mg Tab 30 Mg PO DIRECTED 40 MG twice a day x 3 days, then 20 MG daily x 3 days, then 10 MG daily x 3 days Potassium Chloride ER (Potassium Chloride) 20 Meq Tab 20 Meq PO DAILY Ambien (Zolpidem Tartrate) 5 Mg Tab 5 Mg PO HS PRN Sm Melatonin (Melatonin) 3 Mg Tab 3 Mg PO HS Milk of [place] Liq (Magnesium Hydroxide) 400 Mg/5 Ml Susp 30 Ml PO Q6H PRN Diff-Stat (Probiotic Product) 1 Cap Cap 1 Cap PO BID Theophylline ER 24 HR (Theophylline) 400 Mg Tab 400 Mg PO DAILY Terazosin (Terazosin HCl) 5 Mg Cap 5 Mg PO HS Omeprazole 20 Mg Tab 20 Mg PO DAILY Stiolto Respimat Inh (Tiotropium-Olodaterol Inh) 2.5-2.5 Mcg/Act Aero 2 Puff INH DAILY Montelukast (Montelukast Sodium) 10 Mg Tab 10 Mg PO HS Asmanex 120 Act Twisthaler (Mometasone 120 Act Inh) 220 Mcg/Act Inh 2 Puff INH BID Metoprolol Tartrate 25 Mg Tab 12.5 Mg PO DAILY Furosemide 20 Mg Tab 20 Mg PO DAILY Escitalopram (Escitalopram Oxalate) 10 Mg Tab 10 Mg PO DAILY Clopidogrel (Clopidogrel Bisulfate) 75 Mg Tab 75 Mg PO DAILY Atorvastatin (Atorvastatin Calcium) 40 Mg Tab 40 Mg PO HS Aspirin 81 Mg Tabdr 81 Mg PO DAILY Allergies: Coded Allergies: protamine (Verified Allergy, Severe, Anaphylaxis, 02/11/17) adhesive (Verified Allergy, Intermediate, 02/11/17) PATIENT DENIES *MDRO Multi-Drug Resistant Organism (Verified Adverse Reaction, Unknown, Cleared, 02/11/17) MRSA MRSA PCR Screen negative 06/29/14 and 07/02/14. Cleared per infection control Family History Denies family history of CAD/DM Social History Quit smoking 30 years ago. Occasional alcohol. Denies illicit drugs. Physical Exam Vital Signs Vital Signs Date Time Temp Pulse Resp B/P (MAP) Pulse Ox O2 Delivery O2 Flow Rate FiO2 03/13/17 23:55 98 35 03/13/17 21:47 97.4 63 22 162/88 (112) 98 03/13/17 17:37 67 16 133/80 (97) 97 Room Air 03/13/17 17:25 22 03/13/17 15:20 97.9 82 18 106/60 (75) 96 Physical Exam GENERAL: Obese, male lying in bed SKIN: No rashes, ecchymoses or lesions. Cool and dry. HEAD: Atraumatic. Normocephalic. No temporal or scalp tenderness. EYES: Pupils equal round and reactive. Extraocular motions intact. No scleral icterus. No injection or drainage. ENT: Nose without bleeding, purulent drainage or septal hematoma. Throat without erythema, tonsillar hypertrophy or exudate. Uvula midline. Airway patent. NECK: Trachea midline. No JVD or lymphadenopathy. Supple, nontender, no meningeal signs. CARDIOVASCULAR: Regular rate and rhythm without murmurs, gallops, or rubs. RESPIRATORY: Clear to auscultation. Breath sounds equal bilaterally. No wheezes , rales, or rhonchi. GASTROINTESTINAL: Abdomen soft, non-tender, nondistended. No hepato-splenomegaly , or palpable masses. No guarding. MUSCULOSKELETAL: Extremities without clubbing, cyanosis, or edema. No joint tenderness, effusion, or edema noted. No calf tenderness. NEUROLOGICAL: Awake and alert. Cranial nerves II through XII intact. Motor and sensory grossly within normal limits. Normal speech. Laboratory Laboratory Tests Test 03/13/17 15:40 03/13/17 23:21 White Blood Count 7.9 Red Blood Count 3.30 Hemoglobin 10.0 9.1 Hematocrit 30.4 28.2 Mean Corpuscular Volume 92.3 Mean Corpuscular Hemoglobin 30.4 Mean Corpuscular Hemoglobin Concent 33.0 Red Cell Distribution Width 17.7 Platelet Count 133 Mean Platelet Volume 9.2 Neutrophils (%) (Auto) 92.6 Lymphocytes (%) (Auto) 3.9 Monocytes (%) (Auto) 3.3 Eosinophils (%) (Auto) 0.0 Basophils (%) (Auto) 0.2 Neutrophils # (Auto) 7.3 Lymphocytes # (Auto) 0.3 Monocytes # (Auto) 0.3 Eosinophils # (Auto) 0.0 Basophils # (Auto) 0.0 CBC Comment AUTO DIFF Differential Total Cells Counted 100 Neutrophils % (Manual) 85 Band Neutrophils % 4 Lymphocytes % 3 Monocytes % 4 Basophils % 1 Neutrophils # (Manual) 7.3 Metamyelocytes 3 Differential Comment FINAL DIFF MANUAL Platelet Estimate LOW Platelet Morphology Comment NORMAL Tear Drop Cells 1+ Ovalocytes 1+ [place] Bodies PRESENT [place] Cells 2+ Keratocytes 1+ Prothrombin Time 10.2 Prothromb Time International Ratio 1.0 Activated Partial Thromboplast Time 20.0 Blood Urea Nitrogen 32 Creatinine 1.13 Random Glucose 350 Total Protein 6.2 Albumin 3.1 Calcium Level 8.3 Alkaline Phosphatase 52 Aspartate Amino Transf (AST/SGOT) 11 Alanine Aminotransferase (ALT/SGPT) 28 Total Bilirubin 0.3 Sodium Level 140 Potassium Level 4.2 Chloride Level 107 Carbon Dioxide Level 24.3 Anion Gap 9 Estimat Glomerular Filtration Rate 62 Result Diagram: 03/13/171 03/13/17 1540 Caprini VTE Risk Assessment Caprini VTE Risk Assessment: Mod/High Risk (score >= 2) Caprini Risk Assessment Model Point Value = 1 Point Value = 2 Point Value = 3 Point Value = 5 Age 41-60 Minor surgery BMI > 25 kg/m2 Swollen legs Varicose veins or History of unexplained or recurrent spontaneous Oral contraceptives or hormone replacement Sepsis (< 1 month) Serious lung disease, including pneumonia (< 1 month) Abnormal pulmonary function Acute myocardial infarction Congestive heart failure (< 1 month) History of inflammatory bowel disease Medical patient at bed rest Age 61-74 Arthroscopic surgery Major open surgery (> 45 min) Laparoscopic surgery (> 45 min) Malignancy Confined to bed (> 72 hours) Immobilizing plaster cast Central venous access Age >= 75 History of VTE Family history of VTE Factor V Leiden Prothrombin [id number] Lupus anticoagulant Anticardiolipin antibodies Elevated serum homocysteine Heparin-induced thrombocytopenia Other congenital or acquired thrombophilia Stroke (< 1 month) Elective arthroplasty Hip, pelvis, or leg fracture Acute spinal cord injury (< 1 month) Prophylaxis Regimen Total Risk Factor Score Risk Level Prophylaxis Regimen 0-1 Low Early ambulation 2 Moderate Order ONE of the following: *Sequential Compression Device (SCD) *Heparin 5000 units SQ BID 3-4 Higher Order ONE of the following medications: *Heparin 5000 units SQ TID *Enoxaparin/Lovenox 40 mg SQ daily (WT < 150 kg, CrCl > 30 mL/min) *Enoxaparin/Lovenox 30 mg SQ daily (WT < 150 kg, CrCl > 10-29 mL/min) *Enoxaparin/Lovenox 30 mg SQ BID (WT < 150 kg, CrCl > 30 mL/min) AND/OR *Sequential Compression Device (SCD) 5 or more Highest Order ONE of the following medications: *Heparin 5000 units SQ TID (Preferred with Epidurals) *Enoxaparin/Lovenox 40 mg SQ daily (WT < 150 kg, CrCl > 30 mL/min) *Enoxaparin/Lovenox 30 mg SQ daily (WT < 150 kg, CrCl > 10-29 mL/min) *Enoxaparin/Lovenox 30 mg SQ BID (WT < 150 kg, CrCl > 30 mL/min) AND *Sequential Compression Device (SCD) Assessment and Plan Assessment and Plan Assessment/plan: 1. GI bleed Nothing by mouth Protonix ggt Serial H&H Transfuse when necessary Gastroenterology consulted, appreciate recommendations 2. Type 2 diabetes mellitus Patient is supposed to be on metformin and glipizide however he does not take these as he reports he does not have diabetes Hemoglobin A1c 7.6 on 02/12/17 SSI Monitor blood glucose 3. CAD Status post stent placement 1 year ago Holding aspirin/Plavix secondary to GI bleed 4. CHF Last echo on 02/13/17 with an EF of 60-65% Gentle IV fluid hydration Monitor for signs of volume overload 5. Hypertension/hyperlipidemia/BPH Continue home medications FEN NPO NS at 85 cc/hr Electrolytes: Monitor and replete when necessary Holding pharmacologic anticoagulation for GI bleed Emma Esteban MD Mar 14, 2017 00:55
[2017-03-14] MEDS: SODIUM CHLOR 0.9% 1000 ML INJ 1,000 ML IV SCH ×3 (01:39→23:24)
[2017-03-14] MEDS: PANTOPRAZOLE INJ 80 MG in SODIUM CHLORIDE 0.9% INJ 100 ML IV SCH ×3 (04:44→23:24)
[2017-03-14] MEDS ORDERED: RESP: ALBUTEROL 2.5 MG/IPRATROPIUM 0.5 MG NEB (PRN) NEB (05:45)
[2017-03-14 08:12] LABS: AUTOMATED NEUTROPHIL # 5.8 TH/MM3 (1.8-7.7); BASOPHIL % 0.4 % (0.0-2.0); EOSINOPHIL # 0.1 TH/MM3 (0-0.4); EOSINOPHIL % 1.1 % (0.0-4.0); HEMATOCRIT 28.1 % (39.0-51.0); HEMOGLOBIN 9.3 GM/DL (13.0-17.0); LYMPH % 13.3 % (9.0-44.0); MEAN CELL VOLUME 91.1 FL (80.0-100.0); MEAN CORPUSCULAR HEMOGLOBIN 30.1 PG (27.0-34.0); MEAN CORPUSCULAR HGB CONC 33.1 % (32.0-36.0); MEAN PLATELET VOLUME 9.4 FL (7.0-11.0); MONO % 8.2 % (0.0-8.0); MONOCYTE # 0.6 TH/MM3 (0-0.9); PLATELET COUNT 126 TH/MM3 (150-450); RED BLOOD COUNT 3.08 MIL/MM3 (4.50-5.90); RED CELL DISTRIBUTION WIDTH 17.5 % (11.6-17.2); WHITE BLOOD COUNT 7.5 TH/MM3 (4.0-11.0)
[2017-03-14 08:54] LABS: BICARBONATE 26.9 MEQ/L (21.0-32.0); CALCIUM 8.1 MG/DL (8.5-10.1); CREATININE 0.79 MG/DL (0.60-1.30)
[2017-03-14 09:06] LABS: BANDS 11 % (0-6); LYMPHOCYTES 8 % (9-44); METAMYELOCYTES 1 % (0-1); MONOCYTES 7 % (0-8); NEUTROPHIL # MANUAL DIFF 6.3 TH/MM3 (1.8-7.7); POLYS (SEG NEUTROPHILS) 72 % (16-70)
[2017-03-14 09:08] LABS: HELMET CELLS OCC (NORMAL); HOWELL-JOLLY BODIES PRESENT (NONE SEEN); KERATOCYTES OCC (NORMAL)
[2017-03-14 09:09] LABS: ACANTHOCYTES 2+ (NORMAL)
[2017-03-14] MEDS: METOPROLOL TARTRATE 25 MG TAB PO SCH (09:18)
[2017-03-14] MEDS: THEOPHYLLINE 200 MG EXTENDED RELEASE CAP PO SCH (09:18)
[2017-03-14] MEDS: POTASSIUM CHLORIDE 20 MEQ CONTROLLED RELEASE TAB PO SCH (09:19)
[2017-03-14] MEDS: FUROSEMIDE 20 MG TAB PO SCH (09:19)
[2017-03-14] MEDS: INSULIN ASPART SUPPLEMENTAL SCALE SQ SCH ×4 (09:19→21:31)
[2017-03-14] MEDS: ESCITALOPRAM OXALATE 10 MG TAB PO SCH (09:19)
[2017-03-14] MEDS: SODIUM CHLORIDE 0.9% FLUSH 10 ML FLUSH IV FLUSH SCH ×2 (09:21→21:33)
--- NOTE | 2017-03-14 09:23 | PD.CONS ---
HPI History of Present Illness This is a 82 year old UA should on 03/13/17. He presents with symptoms of dark tarry stools 2 days, with some lower abdominal cramping that waxes and wanes. Denies any bright red bleeding this time, no nausea, vomiting, no heartburn. Patient's last bowel movement was approximately 18 hours ago, but feels like he needs to go now. Patient has significant history of atrial fibrillation and COPD, uses CPAP at home every night to sleep, polyps, and Mcgee's esophagus. Patient has never had any episodes of bleeding before; that he is currently on Plavix and aspirin. Patient does note occasional shortness of breath but seems to be controlled at this time he is currently sitting up on side of the bed awake and a good historian. Hemoglobin is stable at 9.3. She states last colonoscopy was 2-3 years ago. (Brooke Tipton) PFSH Past Medical History AMILCAR COPD on , CPAP CAD Hypertension Hyperlipidemia Diabetes mellitus CHF (EF 60-65%) BPH Degenerative disc disease Past Surgical History CABG 2, 6 and 4 vessel respectively Stent 1 placed one year ago, patient currently on aspirin and Plavix Splenectomy secondary to trauma Cholecystectomy (Brooke Tipton) Coded Allergies: protamine (Verified Allergy, Severe, Anaphylaxis, 02/11/17) adhesive (Verified Allergy, Intermediate, 02/11/17) PATIENT DENIES *MDRO Multi-Drug Resistant Organism (Verified Adverse Reaction, Unknown, Cleared, 02/11/17) MRSA MRSA PCR Screen negative 06/29/14 and 07/02/14. Cleared per infection control Medications Administered Medications Medications (Trade) Dose Ordered Sig/Chano Route PRN Reason Start Time Stop Time Status Last Admin Dose Admin Pantoprazole Sodium 80 mg/ Sodium Chloride 100 ml @ 10 mls/hr Q10H IV 03/13/17 17:07 03/14/17 04:44 Sodium Chloride 1,000 ml @ 85 mls/hr [id number] IV 03/14/17 00:45 03/14/17 01:39 Family History Denies family history of CAD/DM Social History Quit smoking 30 years ago. Occasional alcohol 1 time a week. Denies illicit drugs. (Brooke Tipton) Review of Systems Constitutional: COMPLAINS OF: Fatigue Gastrointestinal: COMPLAINS OF: Black stools (Brooke Tipton) GI Exam Vitals I&O Vital Signs Date Time Temp Pulse Resp B/P (MAP) Pulse Ox O2 Delivery O2 Flow Rate FiO2 03/14/17 08:07 97.7 69 24 116/67 (83) 94 03/14/17 05:19 97.8 58 19 146/74 (98) 100 03/14/17 04:45 98 35 03/14/17 02:12 98 35 03/14/17 01:34 63 16 135/74 (94) 99 03/13/17 23:55 98 35 03/13/17 21:47 97.4 63 22 162/88 (112) 98 03/13/17 17:37 67 16 133/80 (97) 97 Room Air 03/13/17 17:25 22 03/13/17 15:20 97.9 82 18 106/60 (75) 96 Imaging Last Impressions Chest X-Ray 03/13/17 1706 Signed Impressions: Service Date/Time: Monday, March 13, 2017 17:13 - CONCLUSION: 1. No acute abnormality or significant interval change. 2. Compensated cardiomegaly. Williams Dow MD Laboratory Test 03/13/17 15:40 03/13/17 23:21 03/14/17 07:52 White Blood Count 7.9 TH/MM3 7.5 TH/MM3 Red Blood Count 3.30 MIL/MM3 3.08 MIL/MM3 Hemoglobin 10.0 GM/DL 9.1 GM/DL 9.3 GM/DL Hematocrit 30.4 % 28.2 % 28.1 % Mean Corpuscular Volume 92.3 FL 91.1 FL Mean Corpuscular Hemoglobin 30.4 PG 30.1 PG Mean Corpuscular Hemoglobin Concent 33.0 % 33.1 % Red Cell Distribution Width 17.7 % 17.5 % Platelet Count 133 TH/MM3 126 TH/MM3 Mean Platelet Volume 9.2 FL 9.4 FL Neutrophils (%) (Auto) 92.6 % 77.0 % Lymphocytes (%) (Auto) 3.9 % 13.3 % Monocytes (%) (Auto) 3.3 % 8.2 % Eosinophils (%) (Auto) 0.0 % 1.1 % Basophils (%) (Auto) 0.2 % 0.4 % Neutrophils # (Auto) 7.3 TH/MM3 5.8 TH/MM3 Lymphocytes # (Auto) 0.3 TH/MM3 1.0 TH/MM3 Monocytes # (Auto) 0.3 TH/MM3 0.6 TH/MM3 Eosinophils # (Auto) 0.0 TH/MM3 0.1 TH/MM3 Basophils # (Auto) 0.0 TH/MM3 0.0 TH/MM3 CBC Comment AUTO DIFF AUTO DIFF Differential Total Cells Counted 100 Neutrophils % (Manual) 85 % Band Neutrophils % 4 % Lymphocytes % 3 % Monocytes % 4 % Basophils % 1 % Neutrophils # (Manual) 7.3 TH/MM3 Metamyelocytes 3 % Differential Comment FINAL DIFF MANUAL Platelet Estimate LOW Platelet Morphology Comment NORMAL Tear Drop Cells 1+ Ovalocytes 1+ Arriaza-Resaca Bodies PRESENT [place] Cells 2+ Keratocytes 1+ Prothrombin Time 10.2 SEC Prothromb Time International Ratio 1.0 RATIO Activated Partial Thromboplast Time 20.0 SEC Blood Urea Nitrogen 32 MG/DL 23 MG/DL Creatinine 1.13 MG/DL 0.79 MG/DL Random Glucose 350 MG/DL 87 MG/DL Total Protein 6.2 GM/DL Albumin 3.1 GM/DL Calcium Level 8.3 MG/DL 8.1 MG/DL Alkaline Phosphatase 52 U/L Aspartate Amino Transf (AST/SGOT) 11 U/L Alanine Aminotransferase (ALT/SGPT) 28 U/L Total Bilirubin 0.3 MG/DL Sodium Level 140 MEQ/L 146 MEQ/L Potassium Level 4.2 MEQ/L 3.4 MEQ/L Chloride Level 107 MEQ/L 113 MEQ/L Carbon Dioxide Level 24.3 MEQ/L 26.9 MEQ/L Anion Gap 9 MEQ/L 6 MEQ/L Estimat Glomerular Filtration Rate 62 ML/MIN 94 ML/MIN Physical Examination HEENT: Pupils round and reactive to light; normocephalic; atraumatic; no jaundice. NECK: Neck is supple, no JVD, no lymphadenopathy. CHEST: Chest is clear to auscultation and percussion. CARDIAC: Regular rate and rhythm with no murmur gallop or rubs. ABDOMEN: Soft, nondistended, nontender; no hepatosplenomegaly; bowel sounds are present in all four quadrants. EXTREMITIES: No clubbing, cyanosis, or edema. SKIN: Thin skin turgor, small amount of bruising noted on forearms, no rash; no jaundice. SOLDERER FURNACE: No focal deficits; alert and oriented times three. (Brooke Tipton) Assessment and Plan Assessment: (1) History of colon polyps ICD Codes: Z86.010 - Personal history of colonic polyps (2) GI bleed ICD Codes: K92.2 - Gastrointestinal hemorrhage, unspecified (3) Barretts esophagus ICD Codes: K22.70 - Mcgee's esophagus without dysplasia (4) Melena ICD Codes: K92.1 - Melena Status: Acute (5) COPD (chronic obstructive pulmonary disease) ICD Codes: J44.9 - COPD (chronic obstructive pulmonary disease) Status: Acute (6) Sleep apnea ICD Codes: G47.30 - Sleep apnea, unspecified Status: Chronic Plan Maintain on IV PPI drip for now Monitor hemoglobin and other labs will recheck in the morning Call GI for any acute bleeding or hemorrhage Monitor intake and output and number of stools for any increase in bleeding Planned for endoscopy and colonoscopy, currently patient has been on Plavix and aspirin but has been on hold since admission to the hospital Course of treatment will be based on symptomatic needs during this hospital stay We'll discuss case with Dr. Artis, this note is done on his behalf, patient was seen per myself and Dr. Artis (Brooke Tipton) Physician Comments Seen and examined, will plan EGD and Colonoscopy Saturday, after holding Plavix for 3 days, meanwhile to monitor HH and keep him on clears for now. Will follow up with you. (Prashant Artis MD) Brooke Tipton Mar 14, 2017 09:23 Prashant Artis MD Mar 14, 2017 09:52
[2017-03-14] MEDS: TIOTROPIUM OLODATEROL INH SCH (09:44)
[2017-03-14] MEDS: MOMETASONE INH SCH ×2 (09:44→21:00)
[2017-03-14] MEDS ORDERED: POLYETHYLENE GLYCOL 17 GM PKG PO ONE (10:30)
--- NOTE | 2017-03-14 11:50 | HHI.PR ---
Objective Vitals Vital Signs Date Time Temp Pulse Resp B/P (MAP) Pulse Ox O2 Delivery O2 Flow Rate FiO2 03/14/17 08:07 97.7 69 24 116/67 (83) 94 03/14/17 05:19 97.8 58 19 146/74 (98) 100 03/14/17 04:45 98 35 03/14/17 02:12 98 35 03/14/17 01:34 63 16 135/74 (94) 99 03/13/17 23:55 98 35 03/13/17 21:47 97.4 63 22 162/88 (112) 98 03/13/17 17:37 67 16 133/80 (97) 97 Room Air 03/13/17 17:25 22 03/13/17 15:20 97.9 82 18 106/60 (75) 96 Result Diagram: 03/14/17 0752 03/14/17 0752 A/P Assessment and Plan This is an 82-year-old male who presented with GI bleed GI bleed -On Protonix. Blood describes as what he had dark. He has no abdominal pain. Most likely lower bleed. -Hemoglobin has been stable. Initial hemoglobin 10, 9.1, 9.3. He is hemodynamically stable. -Per GI will not scope until Saturday due to Plavix. -If patient remains stable and there is no emergency or urgency and scoping patient this can be scheduled outpatient. -Discussed with nurse practitioner Brooke James with GI in regards to this. Type 2 diabetes mellitus -Patient is supposed to be on metformin and glipizide however he does not take these as he reports he does not have diabetes -Hemoglobin A1c 7.6 on 02/12/17 -[facility] Monitor blood glucose CAD -Status post stent placement 1 year ago -Holding aspirin/Plavix secondary to GI bleed CHF -Last echo on 02/13/17 with an EF of 60-65% -Gentle IV fluid hydration -Monitor for signs of volume overload Hypertension/hyperlipidemia/BPH -Continue home medications DVT prophylaxis -Chemoprophylaxis contraindicated secondary to GI bleed. Discharge Planning If patient remains stable and endoscopy is not schedule until Saturday this can be scheduled outpatient. Discussed case with GI nurse practitioner Brooke Tipton stated she would notify her attending for final recommendations. Jessica Uriarte MD Mar 14, 2017 11:50
[2017-03-14] MEDS: predniSONE 20 MG TAB PO SCH (12:47)
[2017-03-14 13:28] LABS: HEMATOCRIT 30.8 % (39.0-51.0); HEMOGLOBIN 10.3 GM/DL (13.0-17.0)
--- NOTE | 2017-03-14 15:20 | EKG ---
Date Performed: 03/13/2017 Time Performed: 15:37:00 PTAGE: 82 years EKG: Sinus rhythm WITH FIRST DEGREE AV BLOCK MARKED LEFT AXIS DEVIATION RIGHT BUNDLE BRANCH BLOCK ABNORMAL ECG PREVIOUS TRACING : 02/11/2017 17.38 Compared to prior tracing no significant change DOCTOR: Federico Salazar Interpretating Date/Time 03/14/2017 15:19:26
[2017-03-14 17:19] LABS: HEMATOCRIT 32.9 % (39.0-51.0); HEMOGLOBIN 10.4 GM/DL (13.0-17.0)
[2017-03-14] MEDS: ATORVASTATIN 40 MG TAB PO SCH (21:23)
[2017-03-14] MEDS: TERAZOSIN HCL 5 MG CAP PO SCH (21:23)
[2017-03-15] VITALS (11 sets, daily range): BP systolic 112–154; BP diastolic 58–71; PULSE 54–86; RESP 16–24; TEMP 96.5–98.6; O2SAT 97–100
[2017-03-15 07:43] LABS: HEMATOCRIT 27.4 % (39.0-51.0); HEMOGLOBIN 8.9 GM/DL (13.0-17.0); MEAN CELL VOLUME 92.6 FL (80.0-100.0); MEAN CORPUSCULAR HEMOGLOBIN 30.1 PG (27.0-34.0); MEAN CORPUSCULAR HGB CONC 32.5 % (32.0-36.0); MEAN PLATELET VOLUME 9.9 FL (7.0-11.0); PLATELET COUNT 121 TH/MM3 (150-450); RED BLOOD COUNT 2.96 MIL/MM3 (4.50-5.90); RED CELL DISTRIBUTION WIDTH 17.5 % (11.6-17.2); WHITE BLOOD COUNT 6.8 TH/MM3 (4.0-11.0)
[2017-03-15] MEDS: INSULIN ASPART SUPPLEMENTAL SCALE SQ SCH ×4 (08:00→19:50)
[2017-03-15] MEDS: THEOPHYLLINE 200 MG EXTENDED RELEASE CAP PO SCH (08:40)
[2017-03-15] MEDS: METOPROLOL TARTRATE 25 MG TAB PO SCH (08:40)
[2017-03-15] MEDS: POTASSIUM CHLORIDE 20 MEQ CONTROLLED RELEASE TAB PO SCH (08:41)
[2017-03-15] MEDS: FUROSEMIDE 20 MG TAB PO SCH (08:42)
[2017-03-15] MEDS: predniSONE 20 MG TAB PO SCH (08:42)
[2017-03-15] MEDS: ESCITALOPRAM OXALATE 10 MG TAB PO SCH (08:43)
[2017-03-15] MEDS: MOMETASONE INH SCH ×2 (08:44→19:49)
[2017-03-15] MEDS: SODIUM CHLORIDE 0.9% FLUSH 10 ML FLUSH IV FLUSH SCH ×2 (08:45→19:49)
[2017-03-15] MEDS: TIOTROPIUM OLODATEROL INH SCH (08:45)
[2017-03-15] MEDS: SODIUM CHLOR 0.9% 1000 ML INJ 1,000 ML IV SCH (09:22)
[2017-03-15] MEDS: PANTOPRAZOLE INJ 80 MG in SODIUM CHLORIDE 0.9% INJ 100 ML IV SCH ×2 (09:23→19:49)
[2017-03-15] MEDS ORDERED: BISACODYL EC 5 MG TABEC PO ONE (10:15)
--- NOTE | 2017-03-15 10:35 | HHI.PR ---
Subjective Remarks Follow-up for GI bleed Patient stated that he hasn't had a bowel movement for 2 days so he does not know if he has blood in his stools. Otherwise denies any abdominal pain. Denied any chest pain, shortness of breathing, palpitations, lightheaded dizziness or dizziness. He has no other complaints. Objective Vitals Vital Signs Date Time Temp Pulse Resp B/P (MAP) Pulse Ox O2 Delivery O2 Flow Rate FiO2 03/15/17 08:04 98.6 59 24 154/71 (98) 98 03/15/17 07:35 54 03/15/17 07:06 97 CPAP 3.00 03/15/17 03:03 98.5 68 16 145/71 (95) 98 03/14/17 23:04 98.4 66 15 130/64 (86) 97 03/14/17 21:03 98 Nasal Cannula 3.00 03/14/17 20:07 62 03/14/17 20:00 97.9 62 17 134/71 (92) 97 03/14/17 15:41 98.4 60 24 118/67 (84) 99 03/14/17 14:00 61 03/14/17 12:05 97.6 57 24 132/67 (88) 100 Result Diagram: 03/15/17 0612 03/14/17 0752 Imaging Last Impressions Chest X-Ray 03/13/17 1706 Signed Impressions: Service Date/Time: Monday, March 13, 2017 17:13 - CONCLUSION: 1. No acute abnormality or significant interval change. 2. Compensated cardiomegaly. Williams Dow MD Objective Remarks GENERAL: in NAD SKIN: Warm and dry. HEAD: Normocephalic. EYES: No scleral icterus. No injection or drainage. NECK: Supple, trachea midline. No JVD or lymphadenopathy. CARDIOVASCULAR: Regular rate and rhythm without murmurs, gallops, or rubs. RESPIRATORY: Breath sounds equal bilaterally. No accessory muscle use. GASTROINTESTINAL: Abdomen soft, non-tender, nondistended. MUSCULOSKELETAL: No cyanosis, or edema. BACK: Nontender without obvious deformity. No CVA tenderness. Medications and IVs Current Medications Pantoprazole Sodium 80 mg/ Sodium Chloride 35 ml @ 420 mls/hr Q5M ONCE IV Last administered on 03/13/17t 17:21; Start 03/13/17 at 17:07; Stop 03/13/17 at 17:11; Status DC Pantoprazole Sodium 80 mg/ Sodium Chloride 100 ml @ 10 mls/hr Q10H IV Last administered on 03/15/17 09:23; Start 03/13/17 at 17:07 Sodium Chloride (NS Flush) 2 ml UNSCH PRN IV FLUSH FLUSH AFTER USING IV ACCESS ; Start 03/13/17 at 18:30 Sodium Chloride (NS Flush) 2 ml BID IV FLUSH Last administered on 03/15/17 08 :45; Start 03/13/17 at 21:00 Naloxone HCl (Narcan Inj) 0.4 mg UNSCH PRN IV PUSH SEE LABEL COMMENTS; Start 03/13/17 at 18:30 Dextrose (D50w (Vial) Inj) 50 ml UNSCH PRN IV PUSH HYPOGLYCEMIA-SEE COMMENTS; Start 03/13/17 at 23:00 Glucagon (Glucagon Inj) 1 mg UNSCH PRN OTHER HYPOGLYCEMIA-SEE COMMENTS; Start 03/13/17 at 23:00 Insulin Aspart (NovoLOG SUPPLEMENTAL SCALE) 1 ACHS SLIDING SCALE SQ Last administered on 03/14/17 21:31; Start 03/14/17 at 08:00 Atorvastatin Calcium (Lipitor) 40 mg HS PO Last administered on 03/14/17 21: 23; Start 03/14/17 at 21:00 Escitalopram Oxalate (Lexapro) 10 mg DAILY PO Last administered on 03/15/17 08:43; Start 03/14/17 at 09:00 Furosemide (Lasix) 20 mg DAILY PO Last administered on 03/15/17 08:42; Start 03/14/17 at 09:00 Metoprolol Tartrate (Lopressor) 12.5 mg DAILY PO Last administered on 08:40; Start 03/14/17 at 09:00 Potassium Chloride (KCl) 20 meq DAILY PO Last administered on 03/15/17 08:41 ; Start 03/14/17 at 09:00 Terazosin HCl (Hytrin) 5 mg HS PO Last administered on 03/14/17 21:23; Start 03/14/17 at 21:00 Theophylline (Og-24) 400 mg DAILY PO Last administered on 03/15/17 08:40; Start 03/14/17 at 09:00 Zolpidem Tartrate (Ambien) 5 mg HS PRN PO INSOMNIA; Start 03/14/17 at 00:45 Patient Own Medication 2 ea BID INH ; Start 03/14/17 at 09:00 Patient Own Medication PT OWN MED: Tiotropium-Olodaterol... DAILY INH ; Start 03/14/17 at 09:00 Sodium Chloride 1,000 ml @ 85 mls/hr [id number] IV Last administered on t 09:22; Start 03/14/17 at 00:45 Albuterol/ Ipratropium (Duoneb Neb) 1 ampule Q4HR NEB PRN NEB SOB/WHEEZING; Start 03/14/17 at 05:45 Bisacodyl (Dulcolax Ec) 20 mg ONCE ONCE PO ; Start 03/15/17 at 10:15; Stop at 10:16; Status DC Polyethylene Glycol (Miralax) 17 gm ONCE ONCE PO Last administered on 10:32; Start 03/14/17 at 10:30; Stop 03/14/17 at 10:31; Status DC Prednisone (Deltasone) 30 mg DAILY PO Last administered on 03/15/17 08:42; Start 03/14/17 at 12:00 A/P Assessment and Plan This is an 82-year-old male who presented with GI bleed GI bleed -On Protonix. Blood describes as dark. No bowel movement for the past 2 days. Most likely lower GI bleed. -Hemoglobin has been stable. Initial hemoglobin 10, 9.1, 9.3., 8.9. Slowly trending down. He is hemodynamically stable. -Per GI will not scope until Saturday due to Plavix. -Hemoglobin does slowly trending down. Patient scheduled for colonoscopy tomorrow. Continue to monitor hemoglobin and transfuse if hemoglobin less than 7 or if he becomes symptomatic. Type 2 diabetes mellitus -Patient is supposed to be on metformin and glipizide however he does not take these as he reports he does not have diabetes -Hemoglobin A1c 7.6 on 02/12/17 -[facility] Monitor blood glucose CAD -Status post stent placement 1 year ago -Holding aspirin/Plavix secondary to GI bleed CHF -Last echo on 02/13/17 with an EF of 60-65% -Continue home medication. Hypertension/hyperlipidemia/BPH -Continue home medications DVT prophylaxis -Chemoprophylaxis contraindicated secondary to GI bleed. Discharge Planning Hemoglobin slowly trending down. We'll need to continue to monitor she is scheduled for colonoscopy tomorrow. Jessica Uriarte MD Mar 15, 2017 10:35
--- NOTE | 2017-03-15 14:42 | HHI.GIFU ---
Subjective Remarks Pt resting in bed. NO BM. No obvious bleeding. (Katy Fajardo) Objective Vitals I&O Vital Signs Date Time Temp Pulse Resp B/P (MAP) Pulse Ox O2 Delivery O2 Flow Rate FiO2 03/15/17 13:51 68 03/15/17 11:30 98.1 56 22 127/65 (85) 99 03/15/17 08:04 98.6 59 24 154/71 (98) 98 03/15/17 07:35 54 03/15/17 07:06 97 CPAP 3.00 03/15/17 03:03 98.5 68 16 145/71 (95) 98 03/14/17 23:04 98.4 66 15 130/64 (86) 97 03/14/17 21:03 98 Nasal Cannula 3.00 03/14/17 20:07 62 03/14/17 20:00 97.9 62 17 134/71 (92) 97 03/14/17 15:41 98.4 60 24 118/67 (84) 99 Laboratory Laboratory Tests Test 03/14/17 17:00 03/15/17 06:12 Hemoglobin 10.4 8.9 Hematocrit 32.9 27.4 White Blood Count 6.8 Red Blood Count 2.96 Mean Corpuscular Volume 92.6 Mean Corpuscular Hemoglobin 30.1 Mean Corpuscular Hemoglobin Concent 32.5 Red Cell Distribution Width 17.5 Platelet Count 121 Mean Platelet Volume 9.9 Physical Exam HEENT: PERRL; normocephalic; atraumatic; no jaundice. CHEST: CTA CARDIAC: RRR ABDOMEN: Soft, nondistended, nontender; no hepatosplenomegaly; bowel sounds are present in all four quadrants. EXTREMITIES: No clubbing, cyanosis, or edema. SKIN: Normal; no rash; no jaundice. AEROBICS INSTRUCTOR: No focal deficits; alert and oriented times three. (Katy Fajardo) Assessment and Plan Assessment: (1) History of colon polyps ICD Codes: Z86.010 - Personal history of colonic polyps (2) GI bleed ICD Codes: K92.2 - Gastrointestinal hemorrhage, unspecified (3) Barretts esophagus ICD Codes: K22.70 - Mcgee's esophagus without dysplasia (4) Melena ICD Codes: K92.1 - Melena Status: Acute (5) COPD (chronic obstructive pulmonary disease) ICD Codes: J44.9 - COPD (chronic obstructive pulmonary disease) Status: Acute (6) Sleep apnea ICD Codes: G47.30 - Sleep apnea, unspecified Status: Chronic Plan still no BM, colonoscopy tomorrow. mild drop HH today. no obvious bleeding. 2 X MG citrate today clear liquids Monitor hemoglobin Call GI for any acute bleeding or hemorrhage Monitor intake and output and number of stools for any increase in bleeding EGD/colonoscopy tomorrow We'll discuss case with Dr. Artis, this note is done on his behalf, patient was seen per myself and Dr. Artis (Katy Fajardo) Physician Comments Seen and examined, plan as above, will follow up with you. (Prashant Artis MD) Katy Fajardo Mar 15, 2017 14:42 Prashant Artis MD Mar 15, 2017 15:25
[2017-03-15] MEDS ORDERED: MAGNESIUM CITRATE SOLN 300 ML BTL PO ONE ×2 (16:00→18:00)
[2017-03-15] MEDS: RESP: ALBUTEROL 2.5 MG/IPRATROPIUM 0.5 MG NEB (SCH) NEB ×2 (16:20→19:27)
[2017-03-15 16:35] LABS: BICARBONATE 25.2 MEQ/L (21.0-32.0); CALCIUM 7.2 MG/DL (8.5-10.1); CREATININE 0.78 MG/DL (0.60-1.30)
[2017-03-15 16:54] LABS: CALCIUM-PROTEIN CORRECTED 8.3 MG/DL (8.5-10.1); TOTAL PROTEIN 5.1 GM/DL (6.4-8.2)
[2017-03-15] MEDS: TERAZOSIN HCL 5 MG CAP PO SCH (19:49)
[2017-03-15] MEDS: ATORVASTATIN 40 MG TAB PO SCH (19:49)
[2017-03-16 04:33] VITALS: BP 139/64; PULSE 75; RESP 18; TEMP 98.6; O2SAT 97
[2017-03-16] MEDS: PANTOPRAZOLE INJ 80 MG in SODIUM CHLORIDE 0.9% INJ 100 ML IV SCH (05:37)
[2017-03-16] MEDS: RESP: ALBUTEROL 2.5 MG/IPRATROPIUM 0.5 MG NEB (SCH) NEB ×2 (07:14→11:24)
[2017-03-16 07:16] VITALS: O2SAT 95
[2017-03-16] MEDS: INSULIN ASPART SUPPLEMENTAL SCALE SQ SCH (07:50)
[2017-03-16 08:00] VITALS: BP 137/70; PULSE 67; RESP 20; TEMP 96.8; O2SAT 96
[2017-03-16] MEDS ORDERED: methylPREDNISolone SOD SUCC 125 MG/2 ML VIAL ONE (08:25)
[2017-03-16] MEDS: SODIUM CHLORIDE 0.9% FLUSH 10 ML FLUSH IV FLUSH SCH (09:00)
[2017-03-16] MEDS: TIOTROPIUM OLODATEROL INH SCH (09:00)
[2017-03-16] MEDS: MOMETASONE INH SCH (09:00)
--- NOTE | 2017-03-16 09:16 | GIPROC ---
[facility] [address] [facility]. [facility], [address] EGD PROCEDURE REPORT EXAM DATE: 03/16/2017 PATIENT NAME: Alistair Cedillo MR #: [id number] BIRTHDATE: 1935 ATTENDING: Prashant Artis MD ORDER #: [id number] PODIATRIC MEDICINE PROFESSOR: STATUS: inpatient INDICATIONS: The patient is a 82 yr old male here for an EGD due to melena PROCEDURE PERFORMED: EGD w/ biopsy MEDICATIONS: None and Per Anesthesia. TOPICAL ANESTHETIC: none CONSENT: The patient understands the risks and benefits of the procedure and understands that these risks include, but are not limited to: sedation, allergic reaction, infection, perforation and/or bleeding. Alternative means of evaluation and treatment include, among others: physical exam, x-rays, and/or surgical intervention. The patient elects to proceed with this endoscopic procedure. medical equipment was checked for proper function. Hand hygiene and appropriate measures for infection prevention was taken. After the risks, benefits and alternatives of the procedure were thoroughly explained, Informed consent was verified, confirmed and timeout was successfully executed by the treatment team. The patient was anesthetized with topical anesthesia and the endoscope was introduced through the mouth and advanced to the second portion of the duodenum. Retroflexion was performed and was normal The gastroscope was then slowly withdrawn and removed. ESOPHAGUS: There was LA Class B esophagitis noted. STOMACH: There was a moderate amount of residual food seen in the gastric body and gastric fundus. Due to the residual food, complete mucosal examination could not be performed. There was mild gastritis in the gastric antrum. Multiple biopsies were performed using cold forceps. Sample sent for histology. DUODENUM: The duodenal mucosa appeared normal in the bulb and second portion of the duodenum. ADVERSE EVENTS: There were no complications. IMPRESSIONS: 1. There was LA Class B esophagitis noted 2. Food residue in the gastric body and gastric fundus 3. There was mild gastritis in the gastric antrum; multiple biopsies were performed 4. Normal duodenal mucosa in the bulb and second portion of the duodenum 5. Retroflexion was performed and was normal RECOMMENDATIONS: 1. Await biopsy results. Biopsy results will not be ready for 7-10 days. If you don't hear from us in two weeks, call our office for biopsy results. 2. Continue PPI PATIENT CONDITION: stable DISPOSITION: Observation REPEAT EXAM: Return 3 months EGD Prashant Artis MD eSigned: Prashant Artis MD 03/16/2017 9:15 AM cc: PATIENT NAME: Alistair Cedillo MR#: [id number]
--- NOTE | 2017-03-16 09:21 | GIPROC ---
[facility] [address] [facility]. [facility], [address] COLONOSCOPY PROCEDURE REPORT EXAM DATE: 03/16/2017 PATIENT NAME: Alistair Cedillo MR #: [id number] BIRTHDATE: 1935 ENDOSCOPIST: Prashant Artis MD ORDER #: [id number] DISTRIBUTION SUPERINTENDENT: STATUS: inpatient INDICATIONS: The patient is a 82 yr old male here for a colonoscopy due to anemia, non-specific MEDICATIONS: None and Per Anesthesia. PREP QUALITY: poor PREP TYPE:Magnesium Citrate ESTIMATED BLOOD LOSS: None CONSENT: The patient understands the risks and benefits of the procedure and understands that these risks include, but are not limited to: sedation, allergic reaction, infection, perforation and/or bleeding. Alternative means of evaluation and treatment include, among others: physical exam, x-rays, and/or surgical intervention. The patient elects to proceed with this endoscopic procedure. medical equipment was checked for proper function. Hand hygiene and appropriate measures for infection prevention was taken. After the risks, benefits and alternatives of the procedure were thoroughly explained, Informed consent was verified, confirmed and timeout was successfully executed by the treatment team. A digital exam revealed no abnormalities of the rectum The endoscope was introduced through the anus and advanced to the cecum, which was identified by both the appendix and ileocecal valve. The instrument was then slowly withdrawn as the colon was fully examined. COLON FINDINGS: Diverticulum was found throughout the entire examined colon with associated colonic spasm. The opening was large. Three polypoid shaped and smooth pedunculated polyps measuring 6 mm in size were found. A polypectomy was performed using snare cautery. The resection was complete and the polyp tissue was completely retrieved. Retroflexed views revealed internal hemorrhoids and Retroflexed views revealed medium internal hemorrhoids The scope was then completely withdrawn from the patient and the procedure terminated. PROCEDURE WITHDRAWAL TIME:12minutes ADVERSE EVENTS: There were no complications. IMPRESSIONS: 1. Diverticulum throughout the entire examined colon more prominant in the left side 2. Three pedunculated polyps were found; polypectomy was performed using snare cautery for the large one and cold forceps for the 2 small ones. 3. Retroflexed views revealed internal hemorrhoids 4. Retroflexed views revealed medium internal hemorrhoids RECOMMENDATIONS: Await biopsy results. Biopsy results will not be ready for 7-10 days. If you don't hear from us in two weeks, call our office for results. RECALL: Return 3 months Colonoscopy with better bowel prep., unless pathology indicates the need for earlier repeat. Prashant Artis MD eSigned: Prashant Artis MD 03/16/2017 9:21 AM cc: PATIENT NAME: Alistair Cedillo MR#: [id number]
[2017-03-16] MEDS: THEOPHYLLINE 200 MG EXTENDED RELEASE CAP PO SCH (10:05)
[2017-03-16] MEDS: METOPROLOL TARTRATE 25 MG TAB PO SCH (10:06)
[2017-03-16] MEDS: FUROSEMIDE 20 MG TAB PO SCH (10:06)
[2017-03-16] MEDS: predniSONE 20 MG TAB PO SCH (10:06)
[2017-03-16] MEDS: POTASSIUM CHLORIDE 20 MEQ CONTROLLED RELEASE TAB PO SCH (10:07)
[2017-03-16] MEDS: ESCITALOPRAM OXALATE 10 MG TAB PO SCH (10:07)
[2017-03-16] MEDS ORDERED: OMEP40CA2 PO (10:42)
--- NOTE | 2017-03-16 10:45 | HHI.DCPOC ---
Discharge Care Plan Diagnosis: (1) GI bleed (2) Gastritis (3) Diverticulosis (4) Colonic polyp (5) Internal hemorrhage Additional Problems Follow-up with flare maker in 2 weeks for biopsy results. You will need a repeat colonoscopy in 3 months or earlier depending on biopsy report. Supplement your diet with fiber such as Metamucil. Prevent constipation with increased fluid intake and stool softener if needed. Goals to Promote Your Health * To prevent worsening of your condition and complications * To maintain your health at the optimal level Directions to Meet Your Goals Take your medications as prescribed Follow your dietary instruction Follow activity as directed Keep your appointments as scheduled Take your immunizations and boosters as scheduled If your symptoms worsen call your PCP, if no PCP go to Urgent Care Center or Emergency Room Smoking is Dangerous to Your Health. Avoid second hand smoke Call the 24-hour hour crisis hotline for domestic abuse at Jessica Uriarte MD Mar 16, 2017 10:45
--- NOTE | 2017-03-16 10:45 | HHI.DS ---
Discharge Summary Admission Date Mar 13, 2017 at 18:33 Discharge Date: Mar 16, 2017 Admitting Diagnosis Melena (1) Internal hemorrhage ICD Code: R58 - Hemorrhage, not elsewhere classified (2) GI bleed ICD Code: K92.2 - Gastrointestinal hemorrhage, unspecified (3) Gastritis ICD Code: K29.70 - Gastritis, unspecified, without bleeding (4) Colonic polyp ICD Code: K63.5 - Polyp of colon Procedures Colonoscopy and endoscopy Brief History - From Admission 82-year-old male with past medical history significant for AMILCAR, COPD on 3 L nasal cannula continuously, CAD, hypertension, hyperlipidemia, diabetes mellitus and CHF (last echo done on 02/13/17 showed an EF of 60-65%) presents to the emergency department with a chief complaint of bright red blood per rectum and melena. The patient reports that 2 days ago he started noticing significant amounts of bright red blood pouring into the toilet when he had a bowel movement. He states that today he had black, tarry stools. He denies any dizziness or lightheadedness. Shortness of breath is at baseline. Denies any chest pain/pressure. H&H on admission was 10.0/30.4. CBC/BMP: 03/15/17 0612 03/15/17 1545 Significant Findings Laboratory Tests Test 03/13/17 15:40 03/13/17 23:21 03/14/17 07:52 03/14/17 12:30 Red Blood Count 3.30 MIL/MM3 (4.50-5.90) 3.08 MIL/MM3 (4.50-5.90) Hemoglobin 10.0 GM/DL (13.0-17.0) 9.1 GM/DL (13.0-17.0) 9.3 GM/DL (13.0-17.0) 10.3 GM/DL (13.0-17.0) Hematocrit 30.4 % (39.0-51.0) 28.2 % (39.0-51.0) 28.1 % (39.0-51.0) 30.8 % (39.0-51.0) Red Cell Distribution Width 17.7 % (11.6-17.2) 17.5 % (11.6-17.2) Platelet Count 133 TH/MM3 (150-450) 126 TH/MM3 (150-450) Neutrophils (%) (Auto) 92.6 % (16.0-70.0) 77.0 % (16.0-70.0) Lymphocytes (%) (Auto) 3.9 % (9.0-44.0) Lymphocytes # (Auto) 0.3 TH/MM3 (1.0-4.8) Neutrophils % (Manual) 85 % (16-70) 72 % (16-70) Lymphocytes % 3 % (9-44) 8 % (9-44) Metamyelocytes 3 % (0-1) Platelet Estimate LOW (NORMAL) LOW (NORMAL) Tear Drop Cells 1+ (NORMAL) Ovalocytes 1+ (NORMAL) Magda Cells 2+ (NORMAL) Keratocytes 1+ (NORMAL) Activated Partial Thromboplast Time 20.0 SEC (24.3-30.1) Blood Urea Nitrogen 32 MG/DL (7-18) 23 MG/DL (7-18) Random Glucose 350 MG/DL (74-106) Total Protein 6.2 GM/DL (6.4-8.2) Albumin 3.1 GM/DL (3.4-5.0) Calcium Level 8.3 MG/DL (8.5-10.1) 8.1 MG/DL (8.5-10.1) Aspartate Amino Transf (AST/SGOT) 11 U/L (15-37) Estimat Glomerular Filtration Rate 62 ML/MIN (>89) Monocytes (%) (Auto) 8.2 % (0.0-8.0) Band Neutrophils % 11 % (0-6) Acanthocytes 2+ (NORMAL) Sodium Level 146 MEQ/L (136-145) Potassium Level 3.4 MEQ/L (3.5-5.1) Chloride Level 113 MEQ/L (98-107) Test 03/14/17 17:00 03/15/17 06:12 03/15/17 15:45 Hemoglobin 10.4 GM/DL (13.0-17.0) 8.9 GM/DL (13.0-17.0) Hematocrit 32.9 % (39.0-51.0) 27.4 % (39.0-51.0) Red Blood Count 2.96 MIL/MM3 (4.50-5.90) Red Cell Distribution Width 17.5 % (11.6-17.2) Platelet Count 121 TH/MM3 (150-450) Random Glucose 199 MG/DL (74-106) Total Protein 5.1 GM/DL (6.4-8.2) Calcium Level 7.2 MG/DL (8.5-10.1) Chloride Level 111 MEQ/L (98-107) Protein Corrected Calcium 8.3 MG/DL (8.5-10.1) Imaging Last Impressions Chest X-Ray 03/13/17 1706 Signed Impressions: Service Date/Time: Monday, March 13, 2017 17:13 - CONCLUSION: 1. No acute abnormality or significant interval change. 2. Compensated cardiomegaly. Williams Dow MD PE at Discharge GENERAL: in NAD SKIN: Warm and dry. HEAD: Normocephalic. EYES: No scleral icterus. No injection or drainage. NECK: Supple, trachea midline. No JVD or lymphadenopathy. CARDIOVASCULAR: Regular rate and rhythm without murmurs, gallops, or rubs. RESPIRATORY: Breath sounds equal bilaterally. No accessory muscle use. GASTROINTESTINAL: Abdomen soft, non-tender, nondistended. Pt update on day of discharge Follow-up for bloody stools Patient has no bloody stool. He is seen after colonoscopy. Colonoscopy endoscopy results reviewed with patient and his . I spoke to the over the phone. Patient has no complaints. He was able to eat his breakfast this morning. Denies any shortness of breathing. He is very anxious to go home. Hospital Course This is an 82-year-old male who presented with GI bleed GI bleed -Patient was treated empirically with IV Protonix. He was monitored closely with hemoglobin was was relatively stable. He had no bloody bowel movements times hospitalization. Due to patient being high risks and on Plavix colonoscopy was done couple days later in which endoscopy showed gastritis and colonoscopy showed 3 polyps, diverticulosis, and internal hemorrhoids. -Patient was discharged home on Protonix but follow-up with GI provider. Type 2 diabetes mellitus -Patient is supposed to be on metformin and glipizide however he does not take these as he reports he does not have diabetes -Hemoglobin A1c 7.6 on 02/12/17 -[facility] Monitor blood glucose CAD -Status post stent placement 1 year ago -Initially aspirin and Plavix held due to GI bleed. Patient had no bloody bowel movements during his hospitalization. He had it didn't Dr. Cruz and colonoscopy which did not show any active GI bleed. Aspirin and Plavix resumed at the time of discharge and after scoping. CHF -Last echo on 02/13/17 with an EF of 60-65% -Continue home medication. Hypertension/hyperlipidemia/BPH -Continue home medications Pt Condition on Discharge: Stable Discharge Disposition: Discharge Home Discharge Time: > 30 minutes Discharge Instructions DIET: Follow Instructions for: Heart Healthy Diet, Diabetic Diet Activities you can perform: Regular-No Restrictions Follow up Referrals: Gastroenterology - 2 Weeks PCP Follow-up - 1 Week New Medications: Omeprazole (Omeprazole) 40 Mg Cap 40 MG PO DAILY for gastritis, #30 CAP 0 Refills Continued Medications: Aspirin (Aspirin) 81 Mg Tabdr 81 MG PO DAILY, TAB Atorvastatin (Atorvastatin) 40 Mg Tab 40 MG PO HS for Cholesterol Management, #30 TAB 0 Refills Clopidogrel (Clopidogrel) 75 Mg Tab 75 MG PO DAILY for Blood Clot Prevention, #30 TAB 0 Refills Escitalopram (Escitalopram) 10 Mg Tab 10 MG PO DAILY, #30 TAB 0 Refills Furosemide (Furosemide) 20 Mg Tab 20 MG PO DAILY, #30 TAB 0 Refills Glipizide ER (Glipizide ER) 5 Mg Mikayla 5 MG PO DAILY for Blood Sugar Management, #30 TAB 0 Refills Take with breakfast or first main meal of the day. Ipratropium HFA 12.9 GM Inh (Atrovent HFA 12.9 GM Inh) 17 Mcg/Act Aer 2 PUFF INH QID for Breathing Treatment, #1 INHALER 0 Refills Magnesium Hydroxide Liq (Milk of Magnesia Liq) 400 Mg/5 Ml Susp 30 ML PO Q6H PRN for CONSTIPATION, #1 BOTTLE 0 Refills Melatonin (Sm Melatonin) 3 Mg Tab 3 MG PO HS for Insomnia Metformin ER (Metformin ER) 1,000 Mg Mikayla 1000 MG PO BIDAC for Blood Sugar Management, #60 TAB 0 Refills With evening meal Metoprolol Tartrate (Metoprolol Tartrate) 25 Mg Tab 12.5 MG PO DAILY, #60 TAB 0 Refills Mometasone 120 Act Inh (Asmanex 120 Act Twisthaler) 220 Mcg/Act Inh 2 PUFF INH BID for Asthma Management, #1 INHALER 0 Refills Montelukast (Montelukast) 10 Mg Tab 10 MG PO HS, #30 TAB 0 Refills Potassium Chloride ER (Potassium Chloride ER) 20 Meq Tab 20 MEQ PO DAILY for Electrolyte Replacement, #30 TAB 0 Refills Prednisone (Prednisone) 20 Mg Tab 30 MG PO DIRECTED for Inflammation, #11 TAB 0 Refills 40 MG twice a day x 3 days, then 20 MG daily x 3 days, then 10 MG daily x 3 days Probiotic Product (Diff-Stat) 1 Cap Cap 1 CAP PO BID Terazosin (Terazosin) 5 Mg Cap 5 MG PO HS, #30 CAP 0 Refills Theophylline ER 24 HR (Theophylline ER 24 HR) 400 Mg Tab 400 MG PO DAILY, #30 TAB 0 Refills Tiotropium-Olodaterol Inh (Stiolto Respimat Inh) 2.5-2.5 Mcg/Act Aero 2 PUFF INH DAILY for COPD, #1 INHALER 0 Refills Zolpidem (Ambien) 5 Mg Tab 5 MG PO HS PRN for INSOMNIA, TAB 0 Refills Discontinued Medications: Omeprazole (Omeprazole) 20 Mg Tab 20 MG PO DAILY, #30 TAB 0 Refills Jessica Uriarte MD Mar 16, 2017 10:45
[2017-03-16 12:07] VITALS: BP 109/56; PULSE 83; RESP 20; TEMP 97.3; O2SAT 97
== END 2017-03-16 13:00 | disposition home or self-care (01) ==
LOC: NEPD 15:17 → NEDA 18:33 → NEPFCDU 20:02
PROVIDERS: ADMIT Family Medicine; ATTEND Family Medicine
DX: K92.1 Melena (principal); K64.8 Other hemorrhoids; K29.70 Gastritis, unspecified, without bleeding; K63.5 Polyp of colon; J44.9 Chronic obstructive pulmonary disease, unspecified; E11.9 Type 2 diabetes mellitus without complications; E78.5 Hyperlipidemia, unspecified; G47.33 Obstructive sleep apnea (adult) (pediatric); Z99.81 Dependence on supplemental oxygen; R10.30 Lower abdominal pain, unspecified; I48.91 Unspecified atrial fibrillation; I25.10 Atherosclerotic heart disease of native coronary artery without angina pectoris; I50.9 Heart failure, unspecified; I11.0 Hypertensive heart disease with heart failure; K57.90 Diverticulosis of intestine, part unspecified, without perforation or abscess without bleeding; D12.3 Benign neoplasm of transverse colon; D64.9 Anemia, unspecified; K58.9 Irritable bowel syndrome, unspecified; K20.8 Other esophagitis
CPT/HCPCS: 00740; 43239; 45380; 45385; 71010; 80048; 80053; 82948; 84155; 85007; 85014; 85018; 85027; 85610; 85730; 86850; 86900; 86901; 86920; 88305; 93005; 94002; 94640; 94664; 96361; 96365; 96366; 96372; 97110; 97112; 97162; 97530; 99285; C9113; G0378; G8987; G8988; J1815; J2930; J7030; J7512

== ENCOUNTER 2017-06-08 17:02 | Observation (INO) | payer MEDICARE ==
[~2017-06-08] VITALS: Ht 180.3 cm; Wt 100.0 kg
[~2017-06-08 17:02] MED LIST changes: -FERR325T PO; -MIRA33504 PO; -MULT1TAB84 PO; -OMEP20TA93 PO; +OMEP40CA2 PO; +POTA-163 PO; -POTA10TA8 PO; -PRED10 PO; -PRED5TAB PO
[2017-06-08 17:10] VITALS: BP 113/59; PULSE 79; RESP 16; TEMP 97.6; O2SAT 97
--- NOTE | 2017-06-08 17:20 | PD ---
HPI Chief Complaint: Chest Pain Time Seen by Provider: 17:11 Travel History International Travel<30 days: No Contact w/Intl Traveler<30days: No Traveled to known affect area: No History of Present Illness HPI 82-year-old male with history of CAD, CABG 2 on Plavix, presents emergency department for evaluation of chest pressure area patient states it was intermittent for the last 4-5 days but it has become more constant today. He feels like somebody is squeezing his chest. He has mild shortness of breath with it. Denies any nausea or vomiting. No diaphoresis. Patient took aspirin as well as nitroglycerin prior to arrival. Pain has minimized some but still persists. Denies any recent illnesses, fever, or chills. He has no other symptoms to report. PFSH Past Medical History Hx Anticoagulant Therapy: Yes (PLAVIX) AAA: Yes Arthritis: No Asthma: No Atrial Fibrillation: Yes Autoimmune Disease: No Blood Disorders: No Anxiety: Yes Depression: Yes Heart Rhythm Problems: Yes (AFIB ) Cancer: No Cardiac Catheterization: No Cardiovascular Problems: Yes High Cholesterol: Yes Chemotherapy: No Chest Pain: Yes Congestive Heart Failure: Yes COPD: Yes (o2 AT HOME) Cerebrovascular Accident: No Coronary Artery Disease: Yes Diabetes: Yes Diminished Hearing: Yes (HEARING AIDS ) Diverticulitis: Yes Endocrine: No Gastrointestinal Disorders: Yes (Mcgee's Esophagus) GERD: No Glaucoma: No Genitourinary: Yes (BPH) Headaches: No Hepatitis: No Hiatal Hernia: No Hypertension: Yes Immune Disorder: No Implanted Vascular Access Dvce: No Kidney Stones: No Musculoskeletal: Yes (BACK) Neurologic: Yes (spinal stenosis) Psychiatric: No Reproductive: No Respiratory: Yes (COPD) Immunizations Current: Yes Migraines: No Myocardial Infarction: Yes Radiation Therapy: No Renal Failure: No Seizures: No Sickle Cell Disease: No Sleep Apnea: Yes (CPAP AT NIGHT) Thyroid Disease: No Ulcer: No PNEUMOCCOCAL Vaccine (Year): 1 Past Surgical History Abdominal Surgery: Yes (SPLEENECTOMY) AICD: No Arteriovenous Shunt: No Cardiac Surgery: Yes (CABG) Cholecystectomy: Yes Coronary Artery Bypass Graft: Yes Coronary Stent: Yes Ear Surgery: No Endocrine Surgery: No Eye Surgery: No Genitourinary Surgery: No Gynecologic Surgery: No Insulin Pump: No Joint Replacement: No Neurologic Surgery: Yes ( L3/L4 BACK SURGERY ) Oral Surgery: No Pacemaker: No Thoracic Surgery: No Valve Replacement: Yes Other Surgery: Yes (SPLEEN REMOVED, L3/L4 BACK SURGERY ) Social History Alcohol Use: No (OCCASSIONALLY ) Tobacco Use: No Substance Use: No Allergies-Medications (Allergen,Severity, Reaction): Coded Allergies: protamine (Verified Allergy, Severe, Anaphylaxis, 06/08/17) adhesive (Verified Allergy, Intermediate, 06/08/17) PATIENT DENIES *MDRO Multi-Drug Resistant Organism (Verified Adverse Reaction, Unknown, Cleared, 06/08/17) MRSA MRSA PCR Screen negative 06/29/14 and 07/02/14. Cleared per infection control Reported Meds & Prescriptions Reported Meds & Active Scripts Active Glucocom Test Strips (Blood Glucose Test Strips) 1 Anahi Anahi Ea .ROUTE DIRECTED Check sugars three times a day before meals Lancets 1 Mis Mis Ea .ROUTE DIRECTED Check sugars three times a day before meals Glucocom Blood Glucose Mo W/Device (Device) 1 Kit Kit Kit .ROUTE DIRECTED Check sugars three times a day before meals Reported Prednisone 10 Mg Tab 10 Mg PO DAILY Metformin ER (Metformin HCl) 500 Mg Mikayla 500 Mg PO DAILY With evening meal Omeprazole 20 Mg Tab 20 Mg PO DAILY Potassium Chloride ER (Potassium Chloride) 20 Meq Tab 20 Meq PO DAILY Theophylline ER 24 HR (Theophylline) 400 Mg Tab 400 Mg PO DAILY Terazosin (Terazosin HCl) 5 Mg Cap 5 Mg PO HS Stiolto Respimat Inh (Tiotropium-Olodaterol Inh) 2.5-2.5 Mcg/Act Aero 2 Puff INH DAILY Montelukast (Montelukast Sodium) 10 Mg Tab 10 Mg PO HS Asmanex 120 Act Twisthaler (Mometasone 120 Act Inh) 220 Mcg/Act Inh 2 Puff INH BID Metoprolol Tartrate 25 Mg Tab 12.5 Mg PO DAILY Furosemide 20 Mg Tab 20 Mg PO DAILY Escitalopram (Escitalopram Oxalate) 10 Mg Tab 20 Mg PO DAILY Atorvastatin (Atorvastatin Calcium) 40 Mg Tab 80 Mg PO HS Review of Systems Except as stated in HPI: all other systems reviewed are Neg Physical Exam Narrative GENERAL: Well-nourished male patient, ambulatory no acute distress. SKIN: Focused skin assessment warm/dry. HEAD: Atraumatic. Normocephalic. EYES: Pupils equal and round. No scleral icterus. No injection or drainage. ENT: No nasal bleeding or discharge. Mucous membranes pink and moist. NECK: Trachea midline. No JVD. CARDIOVASCULAR: Regular rate and rhythm. No murmur appreciated. RESPIRATORY: No accessory muscle use. Clear to auscultation. Breath sounds equal bilaterally. GASTROINTESTINAL: Abdomen soft, non-tender, nondistended. Hepatic and splenic margins not palpable. MUSCULOSKELETAL: No obvious deformities. No clubbing. No cyanosis. No edema. NEUROLOGICAL: Awake and alert. No obvious cranial nerve deficits. Motor grossly within normal limits. Normal speech. PSYCHIATRIC: Appropriate mood and affect; insight and judgment normal. Data Data Last Documented VS Vital Signs Date Time Temp Pulse Resp B/P (MAP) Pulse Ox O2 Delivery O2 Flow Rate FiO2 06/08/17 17:10 97.6 79 16 113/59 (77) 97 Orders Orders Electrocardiogram (06/08/17 17:17) Ckmb (Isoenzyme) Profile (06/08/17 17:17) Complete Blood Count With Diff (06/08/17 17:17) Magnesium (Mg) (06/08/17 17:17) Prothrombin Time / Inr (Pt) (06/08/17 17:17) Act Partial Throm Time (Ptt) (06/08/17 17:17) Troponin I (06/08/17 17:17) Lipase (06/08/17 17:17) Chest, Single Ap (06/08/17 17:17) Ecg Monitoring (06/08/17 17:17) Bilateral Bp Monitoring (06/08/17 17:17) Iv Access Insert/Monitor (06/08/17 17:17) Oximetry (06/08/17 17:17) Oxygen Administration (06/08/17 17:17) Aspirin Chew (Aspirin Chew) (06/08/17 17:30) Sodium Chloride 0.9% Flush (Ns Flush) (06/08/17 17:30) Nitroglycerin Sl (Nitrostat Sl) (06/08/17 17:30) Sodium Chlorid 0.9% 500 Ml Inj (Ns 500 M (06/08/17 17:30) Comprehensive Metabolic Panel (06/08/17 17:17) CKMB (06/08/17 17:25) CKMB% (06/08/17 17:25) Admit Order (Ed Use Only) (06/08/17 18:45) Activity Bed Rest With Brp (06/08/17 18:45) Vital Signs (Adult) Q4H (06/08/17 18:45) Cardiac Rhythm .As Directed (06/08/17 18:45) Notify Dr: Other .PRN (06/08/17 18:45) Notify Parameters (06/08/17 18:45) Resp Oxygen Nasal Cannula (06/08/17 ) Diet Npo (06/09/17 Breakfast) Diet Heart Healthy (06/08/17 Dinner) Ckmb (Isoenzyme) Profile (06/08/17 20:25) Ckmb (Isoenzyme) Profile (06/08/17 23:25) Troponin I (06/08/17 20:25) Troponin I (06/08/17 23:25) Electrocardiogram (06/08/17 20:05) Electrocardiogram (06/08/17 23:05) ^ Obtain (06/08/17 18:45) Sodium Chloride 0.9% Flush (Ns Flush) (06/08/17 18:45) Sodium Chloride 0.9% Flush (Ns Flush) (06/08/17 21:00) Acetaminophen (Tylenol) (06/08/17 18:45) Ondansetron Inj (Zofran Inj) (06/08/17 18:45) Nitroglycerin Sl (Nitrostat Sl) (06/08/17 18:45) Street Openings Inspector / Telemetry CARMEN.Q8H (06/08/17 18:45) Aydin Bilateral/Knee High CARMEN.QSHIFT (06/08/17 18:45) Labs Laboratory Tests Test 06/08/17 17:25 White Blood Count 11.7 TH/MM3 Red Blood Count 3.50 MIL/MM3 Hemoglobin 9.0 GM/DL Hematocrit 29.0 % Mean Corpuscular Volume 82.9 FL Mean Corpuscular Hemoglobin 25.8 PG Mean Corpuscular Hemoglobin Concent 31.2 % Red Cell Distribution Width 20.3 % Platelet Count 318 TH/MM3 Mean Platelet Volume 8.8 FL Neutrophils (%) (Auto) 95.2 % Lymphocytes (%) (Auto) 2.6 % Monocytes (%) (Auto) 2.1 % Eosinophils (%) (Auto) 0.0 % Basophils (%) (Auto) 0.1 % Neutrophils # (Auto) 11.1 TH/MM3 Lymphocytes # (Auto) 0.3 TH/MM3 Monocytes # (Auto) 0.2 TH/MM3 Eosinophils # (Auto) 0.0 TH/MM3 Basophils # (Auto) 0.0 TH/MM3 CBC Comment DIFF FINAL Differential Comment Prothrombin Time 10.3 SEC Prothromb Time International Ratio 1.0 RATIO Activated Partial Thromboplast Time 19.4 SEC Blood Urea Nitrogen 25 MG/DL Creatinine 1.10 MG/DL Random Glucose 243 MG/DL Total Protein 6.3 GM/DL Albumin 3.0 GM/DL Calcium Level 8.5 MG/DL Magnesium Level 2.0 MG/DL Alkaline Phosphatase 59 U/L Aspartate Amino Transf (AST/SGOT) 13 U/L Alanine Aminotransferase (ALT/SGPT) 21 U/L Total Bilirubin 0.2 MG/DL Sodium Level 142 MEQ/L Potassium Level 4.3 MEQ/L Chloride Level 108 MEQ/L Carbon Dioxide Level 23.5 MEQ/L Anion Gap 11 MEQ/L Estimat Glomerular Filtration Rate 64 ML/MIN Total Creatine Kinase 137 U/L Creatine Kinase MB 4.8 NG/ML Troponin I 0.02 NG/ML Lipase 210 U/L MDM Medical Decision Making Medical Screen Exam Complete: Yes Emergency Medical Condition: Yes Medical Record Reviewed: Yes Differential Diagnosis ACS versus chest wall pain versus pleuritic pain versus anxiety versus indigestion Narrative Course 82-year-old male resents the emergency department for evaluation of chest pain. EKG is reviewed by my attending physician and without acute ST elevation or depression. Patient does not want any additional pain control at this time. Laboratory Tests Test 06/08/17 17:25 White Blood Count 11.7 TH/MM3 Red Blood Count 3.50 MIL/MM3 Hemoglobin 9.0 GM/DL Hematocrit 29.0 % Mean Corpuscular Volume 82.9 FL Mean Corpuscular Hemoglobin 25.8 PG Mean Corpuscular Hemoglobin Concent 31.2 % Red Cell Distribution Width 20.3 % Platelet Count 318 TH/MM3 Mean Platelet Volume 8.8 FL Neutrophils (%) (Auto) 95.2 % Lymphocytes (%) (Auto) 2.6 % Monocytes (%) (Auto) 2.1 % Eosinophils (%) (Auto) 0.0 % Basophils (%) (Auto) 0.1 % Neutrophils # (Auto) 11.1 TH/MM3 Lymphocytes # (Auto) 0.3 TH/MM3 Monocytes # (Auto) 0.2 TH/MM3 Eosinophils # (Auto) 0.0 TH/MM3 Basophils # (Auto) 0.0 TH/MM3 CBC Comment DIFF FINAL Differential Comment Prothrombin Time 10.3 SEC Prothromb Time International Ratio 1.0 RATIO Activated Partial Thromboplast Time 19.4 SEC Blood Urea Nitrogen 25 MG/DL Creatinine 1.10 MG/DL Random Glucose 243 MG/DL Total Protein 6.3 GM/DL Albumin 3.0 GM/DL Calcium Level 8.5 MG/DL Magnesium Level 2.0 MG/DL Alkaline Phosphatase 59 U/L Aspartate Amino Transf (AST/SGOT) 13 U/L Alanine Aminotransferase (ALT/SGPT) 21 U/L Total Bilirubin 0.2 MG/DL Sodium Level 142 MEQ/L Potassium Level 4.3 MEQ/L Chloride Level 108 MEQ/L Carbon Dioxide Level 23.5 MEQ/L Anion Gap 11 MEQ/L Estimat Glomerular Filtration Rate 64 ML/MIN Total Creatine Kinase 137 U/L Creatine Kinase MB 4.8 NG/ML Troponin I 0.02 NG/ML Lipase 210 U/L Last Impressions Chest X-Ray 06/08/17 1717 Signed Impressions: Service Date/Time: Thursday, June 08, 2017 17:50 - CONCLUSION: 1. Cardiomegaly. No acute abnormality. Stable compared to prior dated 03/13/17. Cam Sesay MD Labs are reviewed and similar previous lab work. I discussed the patient my attending physician. Patient be admitted observation of the chest pain center. His refrigeration engine operator is Dr. Lucero. His last stress test was approximately 2 or 3 years ago. Diagnosis Primary Impression: Chest pain Qualified Codes: R07.9 - Chest pain, unspecified Admitting Information Admitting Physician Requests: Observation Condition: Stable MyersSusu grijalva NIKIA Jun 08, 2017 17:20
[2017-06-08] MEDS ORDERED: SODIUM CHLORIDE 0.9% FLUSH 10 ML FLUSH IVF PRN (17:30)
[2017-06-08] MEDS ORDERED: ASPIRIN 81 MG CHEW TAB PO ONE (17:30)
[2017-06-08] MEDS: NITROGLYCERIN 0.4 MG SL 25 TABS/BTL SL SCH ×3 (17:30→17:40)
[2017-06-08] MEDS ORDERED: SODIUM CHLORID 0.9% 500 ML INJ 500 ML IV ONE (17:30)
[2017-06-08 18:03] LABS: AUTOMATED NEUTROPHIL # 11.1 TH/MM3 (1.8-7.7); BASOPHIL % 0.1 % (0.0-2.0); LYMPH % 2.6 % (9.0-44.0); LYMPHOCYTE # 0.3 TH/MM3 (1.0-4.8); MEAN CELL VOLUME 82.9 FL (80.0-100.0); MEAN CORPUSCULAR HEMOGLOBIN 25.8 PG (27.0-34.0); MEAN CORPUSCULAR HGB CONC 31.2 % (32.0-36.0); MEAN PLATELET VOLUME 8.8 FL (7.0-11.0); MONO % 2.1 % (0.0-8.0); MONOCYTE # 0.2 TH/MM3 (0-0.9); NEUT % 95.2 % (16.0-70.0); PLATELET COUNT 318 TH/MM3 (150-450); RED CELL DISTRIBUTION WIDTH 20.3 % (11.6-17.2); WHITE BLOOD COUNT 11.7 TH/MM3 (4.0-11.0)
[2017-06-08 18:24] LABS: ALT (GPT) 21 U/L (12-78); AST (GOT) 13 U/L (15-37); BICARBONATE 23.5 MEQ/L (21.0-32.0); BLOOD UREA NITROGEN 25 MG/DL (7-18); CALCIUM 8.5 MG/DL (8.5-10.1); CHLORIDE 108 MEQ/L (98-107); GLOMERULAR FILTRATION RATE 64 ML/MIN (>89); GLUCOSE,RANDOM 243 MG/DL (74-106); SODIUM (NA) 142 MEQ/L (136-145)
[2017-06-08 18:26] LABS: PROTHROMBIN TIME - PATIENT 10.3 SEC (9.8-11.6)
[2017-06-08] MEDS ORDERED: PRED10 PO (18:26)
[2017-06-08] MEDS ORDERED: OMEP20TA93 PO (18:26)
[2017-06-08] MEDS ORDERED: METF500T4 PO (18:26)
--- NOTE | 2017-06-08 18:26 | RADRPT ---
EXAM DATE/TIME: 06/08/2017 17:50 [facility] COMPARISON: CHEST SINGLE AP, March 13, 2017, 17:13. INDICATIONS : Chest pain since yesterday. MEDICAL HISTORY : Cardiovascular disease. Hypertension. Hernia, hiatal. Reflux, Mcgee's esophagus. SURGICAL HISTORY : Splenectomy. Cholecystectomy ENCOUNTER: Initial ACUITY: 1 day PAIN SCORE: 6/10 LOCATION: Bilateral chest FINDINGS: The heart is enlarged. The patient is post median sternotomy. The mediastinal contours are within nor mal limits. The pulmonary parenchyma is clear. The bony structures are intact. CONCLUSION: 1. Cardiomegaly. No acute abnormality. Stable compared to prior dated 03/13/17. Cam Sesay MD on June 08, 2017 at 18:22 Board Certified Radiologist. This report was verified electronically.
[2017-06-08 18:28] LABS: ALKALINE PHOSPHATASE 59 U/L (45-117); TOTAL BILIRUBIN ADULT 0.2 MG/DL (0.2-1.0); TOTAL PROTEIN 6.3 GM/DL (6.4-8.2); TROPONIN I 0.02 NG/ML (0.02-0.05)
[2017-06-08] MEDS ORDERED: ONDANSETRON HCL 4 MG/2 ML VIAL IV PUSH PRN (18:45)
[2017-06-08] MEDS ORDERED: SODIUM CHLORIDE 0.9% FLUSH 10 ML FLUSH IV FLUSH PRN (18:45)
[2017-06-08] MEDS ORDERED: NITROGLYCERIN 0.4 MG SL 25 TABS/BTL SL PRN (18:45)
[2017-06-08] MEDS ORDERED: ACETAMINOPHEN 500 MG CPLT PO PRN (18:45)
[2017-06-08] MEDS: SODIUM CHLORIDE 0.9% FLUSH 10 ML FLUSH IV FLUSH SCH (21:00)
[2017-06-08 21:30] VITALS: BP 134/77; PULSE 72; RESP 18; TEMP 97.7; O2SAT 98
[2017-06-08 21:54] LABS: TROPONIN I LESS THAN 0.02 NG/ML (0.02-0.05)
[2017-06-08 22:11] VITALS: PULSE 66
[2017-06-09] VITALS (8 sets, daily range): BP systolic 157–170; BP diastolic 76–92; PULSE 64–76; RESP 16–20; TEMP 98–98.6; O2SAT 91–98
[2017-06-09 01:04] LABS: TROPONIN I 0.02 NG/ML (0.02-0.05)
[2017-06-09 07:34] LABS: AUTOMATED NEUTROPHIL # 9.3 TH/MM3 (1.8-7.7); BASOPHIL # 0.1 TH/MM3 (0-0.2); BASOPHIL % 0.7 % (0.0-2.0); EOSINOPHIL # 0.1 TH/MM3 (0-0.4); EOSINOPHIL % 1.2 % (0.0-4.0); HEMATOCRIT 27.2 % (39.0-51.0); HEMOGLOBIN 8.7 GM/DL (13.0-17.0); LYMPH % 9.9 % (9.0-44.0); LYMPHOCYTE # 1.2 TH/MM3 (1.0-4.8); MEAN CELL VOLUME 81.2 FL (80.0-100.0); MEAN CORPUSCULAR HEMOGLOBIN 25.9 PG (27.0-34.0); MEAN CORPUSCULAR HGB CONC 31.8 % (32.0-36.0); MEAN PLATELET VOLUME 8.7 FL (7.0-11.0); MONOCYTE # 1.1 TH/MM3 (0-0.9); NEUT % 79.2 % (16.0-70.0); PLATELET COUNT 312 TH/MM3 (150-450); RED BLOOD COUNT 3.35 MIL/MM3 (4.50-5.90); RED CELL DISTRIBUTION WIDTH 19.7 % (11.6-17.2); WHITE BLOOD COUNT 11.7 TH/MM3 (4.0-11.0)
[2017-06-09] MEDS ORDERED: GLUCAGON 1 MG/ML VIAL OTHER PRN (07:45)
[2017-06-09] MEDS ORDERED: DEXTROSE 50% IN WATER 50 ML VIAL(D50) IV PUSH PRN (07:45)
[2017-06-09] MEDS ORDERED: RESP: ALBUTEROL 2.5 MG/IPRATROPIUM 0.5 MG NEB (SCH) INH ONE (08:00)
[2017-06-09] MEDS: INSULIN ASPART SUPPLEMENTAL SCALE SQ SCH ×4 (08:45→22:37)
[2017-06-09] MEDS: PANTOPRAZOLE SOD 20 MG DELAYED RELEASE TAB PO SCH (08:52)
[2017-06-09] MEDS: FUROSEMIDE 20 MG TAB PO SCH (08:52)
[2017-06-09] MEDS: POTASSIUM CHLORIDE 20 MEQ CONTROLLED RELEASE TAB PO SCH (08:52)
[2017-06-09] MEDS: THEOPHYLLINE 200 MG EXTENDED RELEASE CAP PO SCH (08:52)
[2017-06-09] MEDS: SODIUM CHLORIDE 0.9% FLUSH 10 ML FLUSH IV FLUSH SCH ×2 (08:53→22:37)
[2017-06-09] MEDS ORDERED: predniSONE 10 MG TAB PO SCH (09:00)
[2017-06-09] MEDS: ESCITALOPRAM OXALATE 20 MG TAB PO SCH (10:50)
[2017-06-09] MEDS ORDERED: RESP: ALBUTEROL 2.5 MG/IPRATROPIUM 0.5 MG NEB (PRN) INH (12:00)
[2017-06-09] MEDS: RESP: ALBUTEROL 2.5 MG/IPRATROPIUM 0.5 MG NEB (SCH) NEB ×3 (12:45→21:04)
--- NOTE | 2017-06-09 13:06 | EKG ---
Date Performed: 06/09/2017 Time Performed: 00:27:51 PTAGE: 82 years EKG: Sinus rhythm WITH FIRST DEGREE AV BLOCK MARKED LEFT AXIS DEVIATION RIGHT BUNDLE BRANCH BLOCK ABNORMAL ECG PREVIOUS TRACING : 06/08/2017 20.58 Since previous tracing, no significant change noted DOCTOR: Martin Wilcox Interpretating Date/Time 06/09/2017 13:04:02
--- NOTE | 2017-06-09 13:06 | EKG ---
Date Performed: 06/08/2017 Time Performed: 20:58:39 PTAGE: 82 years EKG: Sinus rhythm WITH FIRST DEGREE AV BLOCK WITH OCCASIONAL SUPRAVENTRICULAR PREMATURE COMPLEXES POSSIBLE LEFT ATRIAL ENLARGEMENT MARKED LEFT AXIS DEVIATION RIGHT BUNDLE BRANCH BLOCK ABNORMAL ECG INTERPRETATION BASED O N A DEFAULT AGE OF 40 YEARS PREVIOUS TRACING : 06/08/2017 17.09 Since previous tracing, no significant change noted DOCTOR: Martin Wilcox Interpretating Date/Time 06/09/2017 13:04:45
--- NOTE | 2017-06-09 13:10 | EKG ---
Date Performed: 06/08/2017 Time Performed: 17:09:37 PTAGE: 82 years EKG: Sinus rhythm WITH FIRST DEGREE AV BLOCK MARKED LEFT AXIS DEVIATION RIGHT BUNDLE BRANCH BLOCK ABNORMAL ECG Since PREVIOUS TRACING , no significant change noted PREVIOUS TRACIN03/13/2017 15.37 DOCTOR: Martin Wilcox Interpretating Date/Time 06/09/2017 13:09:53
--- NOTE | 2017-06-09 13:23 | MB ---
cc: Noman Mcnamara MD DATE OF CONSULT: HISTORY OF PRESENT ILLNESS: Mr. Cedillo is an 82-year-old white male well known to me with steroid dependent asthma/COPD. Former smoker but quit years ago. I last saw him in the office earlier this week, at which time his pulmonary status was reasonably stable, but we had to bump his steroids which has been done multiple times in the past. He had been seen recently by Dr. Lowry as well. He does have a history of coronary disease and has had a previous bypass and was having substernal chest discomfort. A nuclear stress test was being arranged as an outpatient, but over the weekend, the pain became worse. He was unresponsive to 3 nitroglycerin, so he came into the hospital as he had been instructed. He is wheezing. He has a cough with minimal sputum, it is clear. No hemoptysis. Chest pain has eased off since he has been in the hospital and he is comfortable at rest at present. PAST MEDICAL HISTORY: Extensive, including a bypass surgery and valve replacement, AMILCAR on CPAP at home, previous splenectomy, BPH, prior cholecystectomy, back surgery several years ago and a history of deep venous thrombosis with pulmonary embolism, although he has not been on anticoagulation recently due to gastrointestinal blood loss per rectum, I believe late last year. He also has a history of atrial fibrillation, congestive heart failure, Mcgee's esophagus, hemorrhoids, severe COPD/asthma. He has also had stents placed. SOCIAL HISTORY: , lives with his . Former smoker, has quit. Occasional alcohol, but not to excess at present. ALLERGIES: PROTAMINE, ADHESIVES. MEDICATIONS: Summary of medications and current medications in the hospital are reviewed in the EMR. REVIEW OF SYSTEMS: Other than that noted above, he has had no increased edema. No orthopnea or PND. No obvious bleeding from his rectum. PHYSICAL EXAMINATION: GENERAL: Awake, alert, comfortable at rest. VITAL SIGNS: Temperature is 97.5, respirations 18, blood pressure 130/70, pulse 95% on 3 liters. HEENT: Sclerae are anicteric. Pharynx is clear. No thrush. NECK: Veins are flat, no adenopathy in the neck or supraclavicular region. LUNGS: Diffuse wheezing in both lungs. HEART: Regular rhythm. No harsh murmur. No audible S3. ABDOMEN: Obese but soft, nontender. Minimal ankle edema. No cyanosis or clubbing. LABORATORY DATA: White count is 11,000, hemoglobin is 8.7, platelets 312. PT, INR normal. BUN 25, creatinine 1.1, albumin 3. Chest x-ray: Heart is enlarged. No pulmonary infiltrates. ASSESSMENT AND DISCUSSION: Mr. Cedillo presents with substernal chest discomfort of unclear etiology, could be related to his gastrointestinal problems, but obviously coronary disease is a concern. I spoke with Dr. Hernandez covering for Dr. Lowry today and he will see him later. He is quite bronchospastic this morning. I am going to put him on IV steroids along with his aerosolized bronchodilators. There is no indication that he has a respiratory infection at present. Hopefully, with control of his underlying COPD Cardiology can proceed with any further diagnostic interventions on his heart. Also, check a theophylline level. He is at risk for thromboembolic disease. He has had some GI bleeding in the past, although that was quite distant. Current hemoglobin is 9. We will check stool and if negative, proceed with a low dose subcutaneous heparin as prophylaxis. Further diagnostic and/or therapeutic intervention will depend on his ongoing clinical course and response to therapy. Thank you for asking me to see him with you in consultation. MD SATYA Millard/BRITTANI , 12:31 PM , 01:22 PM
[2017-06-09] MEDS: methylPREDNISolone SOD SUCC 40 MG/1 ML VIAL IV PUSH SCH ×2 (14:12→22:36)
--- NOTE | 2017-06-09 14:12 | MB ---
cc: Sukumar Hernandez MD, Ashraf S MD DATE OF CONSULT: 06/09/2017 REASON FOR EVALUATION: Chest pain. HISTORY OF PRESENT ILLNESS: Mr. Cedillo is an 82-year-old white gentleman, a longstanding patient of Dr. Lowry, with history of coronary artery disease, prior bypass surgery x 2, and severe COPD. The patient came to the emergency room yesterday evening because of persistent chest discomfort. The patient says that he was having intermittent substernal chest pressure over the past week or so and had been scheduled for an outpatient stress test with Dr. Lowry, but yesterday, he awoke around 9:00, had the chest squeezing sensation the entire day and despite taking 3 sublingual nitroglycerin, had no relief. He came to the emergency room. Here, he has had negative cardiac enzymes and unremarkable EKGs, but has been noted to have severe shortness of breath and has been evaluated by Dr. Mcnamara from pulmonary standpoint and is being placed on steroids. PAST MEDICAL AND SURGICAL HISTORY: As mentioned. He has had multiple repeat hospitalizations because of exacerbation of COPD. He has had bypass surgery initially in 1993 in [place], [place], and then repeat surgery at this hospital in 2003. He has had also coronary stent implants at [facility] about a year or 2 ago. Additionally, he has had a splenectomy secondary to trauma, back surgery, cholecystectomy. He denies history of diabetes or stroke. ALLERGIES: PROTAMINE, ADHESIVE TAPE. CURRENT MEDICATIONS: 1. Lipitor 80 mg at bedtime. 2. Hytrin 5 mg at bedtime. 3. Heparin 5000 units subcutaneous every q. 12 hours. 4. Solu-Medrol 40 mg IV q. 8 hours. 5. DuoNebs q. 6 hours. 6. Lexapro 20 mg daily. 7. Lasix 20 mg daily. 8. Potassium 20 mEq daily. 9. Og-24, 400 mg daily. 10. Protonix 20 mg daily. 11. NovoLog insulin sliding scale. SOCIAL HISTORY: The patient denies tobacco, any significant alcohol intake or illicit drug use at this time. FAMILY HISTORY: Noncontributory. REVIEW OF SYSTEMS: Denies lower extremity edema or claudication. Denies any palpitations, lightheadedness or syncope. Denies any bleeding or clotting disorders. Except for that mentioned in the HPI, his 12-point review of systems is otherwise negative. PHYSICAL EXAMINATION: GENERAL: Reveals an overweight white male in moderate respiratory distress, sitting up on the side of the bed. He says his chest discomfort is now resolved. HEENT: Head is normocephalic and atraumatic. Pupils equal, round, reactive to light. Sclerae are anicteric. Extraocular movements intact. NECK: Supple. There is no adenopathy. There is no jugular venous distention at 45 degrees. Carotid upstrokes are normal. No bruits. LUNGS: Have decreased breath sounds bilaterally. There are scattered expiratory wheezes and a few rhonchi. No rales. HEART: PMI is not displaced. S1, S2 are normal. No murmurs, gallops, clicks or rubs heard. Heart sounds are distant. ABDOMEN: Obese. Bowel sounds present. Soft, nontender. No hepatosplenomegaly, masses or bruits. EXTREMITIES: No cyanosis, clubbing, with trace edema at the ankles and feet. Perfusion is adequate. NEUROLOGIC: Nonfocal. DIAGNOSTIC DATA: EKG shows a sinus rhythm with first degree AV block, right bundle branch block and left anterior fascicular block. Abnormal EKG, but no changes compared to previous EKGs. Chest x-ray from last evening shows cardiomegaly, no acute abnormality, stable compared to prior study of 03/13/2017. LABORATORY DATA: Cardiac enzymes are negative x 3 sets. His last total CPK was 137 with a troponin I of 0.02. Coags are normal. CBC: White count 11.7, hemoglobin 8.7, hematocrit 27.2, platelet count 312,000. Chemistries: Sodium 142, potassium 4.3, chloride 108, BUN 25, creatinine 1.1, glucose 243, AST 13. IMPRESSION: 1. Exacerbation of chronic obstructive pulmonary disease. 2. Atypical chest pain, suspect secondary to chronic obstructive pulmonary disease. 3. History of atherosclerotic heart disease, status post coronary artery bypass graft x 2 surgeries. 4. History of coronary stent implant. 5. Abnormal electrocardiogram with first degree atrioventricular block, right bundle branch block and left anterior fascicular block. 6. Obesity. 7. Diabetes mellitus type 2. RECOMMENDATION: The patient will be admitted to the hospital. All of his home cardiac and other medications have been resumed. Start aspirin 81 mg daily in addition to his other medications. Continue aggressive pulmonary treatment per Dr. Mcnamara's recommendations. I think he is stable from a cardiovascular standpoint at this time and he has no evidence of ongoing ischemia or recent infarct. Discussed the plans in detail with Dr. Mcnamara and with the patient. Dr. Lorwy will followup with him tomorrow with any further recommendations. Thank you for allowing us to participate in the care of this patient. MD RODRIGUE Shannon/SB , 01:11 PM , 02:11 PM
[2017-06-09] MEDS: MONTELUKAST SODIUM 10 MG TAB PO SCH (22:35)
[2017-06-09] MEDS: ATORVASTATIN 80 MG TAB PO SCH (22:35)
[2017-06-09] MEDS: HEPARIN SODIUM - SQ 10,000 UNITS/ML VIAL SQ SCH (22:36)
[2017-06-09] MEDS: TERAZOSIN HCL 5 MG CAP PO SCH (22:37)
--- NOTE | 2017-06-09 22:47 | HHI.HP ---
[facility] Jw Rashid MD Admission Diagnosis CHEST PAIN Diagnoses: Travel History International Travel<30 Days: No Contact w/Intl Traveler <30 Da: No Traveled to Known Affected Are: No History of Present Illness 81-year-old male with a history of COPD on 3 L nasal cannula, CAD status post CABG 2, hypertension, hyperlipidemia, diabetes, diastolic CHF presents with a 4 to five-day history of progressively worsening nonradiating substernal chest heaviness, shortness of breath, cough productive of whitish sputum. Denies any nausea, vomiting, lightheadedness, dizziness, fevers, chills. He reports generally feeling fatigued. Chest heaviness did not resolve with 3 doses of nitroglycerin at home. Patient does say that chest heaviness has improved greatly after Ever's Review of Systems Except as stated in HPI: all other systems reviewed are Neg Past Family Social History Past Medical History Sleep apnea COPD on 3 L nasal cannula at home CAD Hypertension Hyperlipidemia CHF Diabetes mellitus BPH Chronic anemia. History of GI bleed. Past Surgical History Cholecystectomy CABG 2 Stent placed 1 year ago. History of splenectomy Cholecystectomy Reported Medications Reported Meds & Active Scripts Active Glucocom Test Strips (Blood Glucose Test Strips) 1 Anahi Anahi Ea .ROUTE DIRECTED Check sugars three times a day before meals Lancets 1 Mis Mis Ea .ROUTE DIRECTED Check sugars three times a day before meals Glucocom Blood Glucose Mo W/Device (Device) 1 Kit Kit Kit .ROUTE DIRECTED Check sugars three times a day before meals Reported Prednisone 10 Mg Tab 10 Mg PO DAILY Metformin ER (Metformin HCl) 500 Mg Mikayla 500 Mg PO DAILY With evening meal Omeprazole 20 Mg Tab 20 Mg PO DAILY Potassium Chloride ER (Potassium Chloride) 20 Meq Tab 20 Meq PO DAILY Theophylline ER 24 HR (Theophylline) 400 Mg Tab 400 Mg PO DAILY Terazosin (Terazosin HCl) 5 Mg Cap 5 Mg PO HS Stiolto Respimat Inh (Tiotropium-Olodaterol Inh) 2.5-2.5 Mcg/Act Aero 2 Puff INH DAILY Montelukast (Montelukast Sodium) 10 Mg Tab 10 Mg PO HS Asmanex 120 Act Twisthaler (Mometasone 120 Act Inh) 220 Mcg/Act Inh 2 Puff INH BID Metoprolol Tartrate 25 Mg Tab 12.5 Mg PO DAILY Furosemide 20 Mg Tab 20 Mg PO DAILY Escitalopram (Escitalopram Oxalate) 10 Mg Tab 20 Mg PO DAILY Atorvastatin (Atorvastatin Calcium) 40 Mg Tab 80 Mg PO HS Allergies: Coded Allergies: protamine (Verified Allergy, Severe, Anaphylaxis, 06/08/17) adhesive (Verified Allergy, Intermediate, 06/08/17) PATIENT DENIES *MDRO Multi-Drug Resistant Organism (Verified Adverse Reaction, Unknown, Cleared, 06/08/17) MRSA MRSA PCR Screen negative 06/29/14 and 07/02/14. Cleared per infection control Family History mother from cancer. Father had Parkinson's Social History Patient quit smoking 40 years ago. Reports occasional alcohol use. Denies illicit drugs Physical Exam Vital Signs Vital Signs Date Time Temp Pulse Resp B/P (MAP) Pulse Ox O2 Delivery O2 Flow Rate FiO2 06/09/17 21:07 96 21 06/09/17 17:25 98.1 75 17 169/84 (112) 91 06/09/17 11:33 98.0 69 16 158/92 (114) 94 06/09/17 08:00 64 06/09/17 04:00 66 06/09/17 03:56 98.6 67 20 170/85 (113) 98 06/09/17 00:38 98.1 68 16 169/86 (113) 98 Physical Exam GENERAL: This is a well-nourished, well-developed patient, who appears short of breath.alert and oriented 3 SKIN: No rashes, ecchymoses or lesions. Cool and dry. HEAD: Atraumatic. Normocephalic. No temporal or scalp tenderness. EYES: Pupils equal round and reactive. Extraocular motions intact. No scleral icterus. No injection or drainage. ENT: Nose without bleeding, purulent drainage or septal hematoma. Throat without erythema, tonsillar hypertrophy or exudate. Uvula midline. Airway patent. NECK: Trachea midline. No JVD or lymphadenopathy. Supple, nontender, no meningeal signs. CARDIOVASCULAR: Regular rate and rhythm without murmurs, gallops, or rubs. RESPIRATORY: patient has wheezes bilaterally. No rhonchi. Dry crackles bilaterally GASTROINTESTINAL: Abdomen soft, non-tender, nondistended. No hepato-splenomegaly , or palpable masses. No guarding. MUSCULOSKELETAL: Extremities without clubbing, cyanosis, or edema. No joint tenderness, effusion, or edema noted. No calf tenderness. Negative Homans sign bilaterally. NEUROLOGICAL: Awake and alert. Cranial nerves II through XII intact. Motor and sensory grossly within normal limits. Five out of 5 muscle strength in all muscle groups. Normal speech. Laboratory Laboratory Tests Test 06/08/17 23:55 06/09/17 06:46 06/09/17 16:14 Total Creatine Kinase 119 Creatine Kinase MB 4.5 Troponin I 0.02 White Blood Count 11.7 Red Blood Count 3.35 Hemoglobin 8.7 Hematocrit 27.2 Mean Corpuscular Volume 81.2 Mean Corpuscular Hemoglobin 25.9 Mean Corpuscular Hemoglobin Concent 31.8 Red Cell Distribution Width 19.7 Platelet Count 312 Mean Platelet Volume 8.7 Neutrophils (%) (Auto) 79.2 Lymphocytes (%) (Auto) 9.9 Monocytes (%) (Auto) 9.0 Eosinophils (%) (Auto) 1.2 Basophils (%) (Auto) 0.7 Neutrophils # (Auto) 9.3 Lymphocytes # (Auto) 1.2 Monocytes # (Auto) 1.1 Eosinophils # (Auto) 0.1 Basophils # (Auto) 0.1 CBC Comment DIFF FINAL Differential Comment Theophylline Level 5.9 Result Diagram: 06/09/17 0646 06/08/17 1725 Caprini VTE Risk Assessment Caprini VTE Risk Assessment: Mod/High Risk (score >= 2) Caprini Risk Assessment Model Point Value = 1 Point Value = 2 Point Value = 3 Point Value = 5 Age 41-60 Minor surgery BMI > 25 kg/m2 Swollen legs Varicose veins or History of unexplained or recurrent spontaneous Oral contraceptives or hormone replacement Sepsis (< 1 month) Serious lung disease, including pneumonia (< 1 month) Abnormal pulmonary function Acute myocardial infarction Congestive heart failure (< 1 month) History of inflammatory bowel disease Medical patient at bed rest Age 61-74 Arthroscopic surgery Major open surgery (> 45 min) Laparoscopic surgery (> 45 min) Malignancy Confined to bed (> 72 hours) Immobilizing plaster cast Central venous access Age >= 75 History of VTE Family history of VTE Factor V Leiden Prothrombin [id number] Lupus anticoagulant Anticardiolipin antibodies Elevated serum homocysteine Heparin-induced thrombocytopenia Other congenital or acquired thrombophilia Stroke (< 1 month) Elective arthroplasty Hip, pelvis, or leg fracture Acute spinal cord injury (< 1 month) Prophylaxis Regimen Total Risk Factor Score Risk Level Prophylaxis Regimen 0-1 Low Early ambulation 2 Moderate Order ONE of the following: *Sequential Compression Device (SCD) *Heparin 5000 units SQ BID 3-4 Higher Order ONE of the following medications: *Heparin 5000 units SQ TID *Enoxaparin/Lovenox 40 mg SQ daily (WT < 150 kg, CrCl > 30 mL/min) *Enoxaparin/Lovenox 30 mg SQ daily (WT < 150 kg, CrCl > 10-29 mL/min) *Enoxaparin/Lovenox 30 mg SQ BID (WT < 150 kg, CrCl > 30 mL/min) AND/OR *Sequential Compression Device (SCD) 5 or more Highest Order ONE of the following medications: *Heparin 5000 units SQ TID (Preferred with Epidurals) *Enoxaparin/Lovenox 40 mg SQ daily (WT < 150 kg, CrCl > 30 mL/min) *Enoxaparin/Lovenox 30 mg SQ daily (WT < 150 kg, CrCl > 10-29 mL/min) *Enoxaparin/Lovenox 30 mg SQ BID (WT < 150 kg, CrCl > 30 mL/min) AND *Sequential Compression Device (SCD) Assessment and Plan Assessment and Plan //COPD exacerbation //Bronchitis -Chest x-ray with no acute findings. Pulmonology following. Appreciate assistance. //Coronary artery disease //Presentation with chest pain //History of hyperlipidemia No acute changes on EKG, troponin nonelevated -Cardiology following. Appreciate assistance. Continue home medications. //Diabetes mellitus. Continue insulin sliding scale and diabetic diet. //BPH chronic. Continue home medication Discussed Condition With patient, nurse, cardiology Anup Mobley MD Jun 09, 2017 22:47
[2017-06-10] MEDS: RESP: ALBUTEROL 2.5 MG/IPRATROPIUM 0.5 MG NEB (SCH) NEB ×4 (03:22→20:48)
[2017-06-10] MEDS: methylPREDNISolone SOD SUCC 40 MG/1 ML VIAL IV PUSH SCH ×3 (06:05→21:54)
[2017-06-10 07:18] VITALS: BP 179/79; PULSE 70; RESP 17; TEMP 97.6; O2SAT 94
[2017-06-10] MEDS: INSULIN ASPART SUPPLEMENTAL SCALE SQ SCH ×4 (08:00→22:06)
[2017-06-10] MEDS: PANTOPRAZOLE SOD 20 MG DELAYED RELEASE TAB PO SCH (09:00)
[2017-06-10] MEDS: SODIUM CHLORIDE 0.9% FLUSH 10 ML FLUSH IV FLUSH SCH ×2 (09:00→21:53)
[2017-06-10] MEDS: ESCITALOPRAM OXALATE 20 MG TAB PO SCH (09:00)
[2017-06-10] MEDS: FUROSEMIDE 20 MG TAB PO SCH (09:00)
[2017-06-10] MEDS: THEOPHYLLINE 200 MG EXTENDED RELEASE CAP PO SCH (09:00)
[2017-06-10] MEDS: HEPARIN SODIUM - SQ 10,000 UNITS/ML VIAL SQ SCH ×2 (09:00→21:54)
[2017-06-10] MEDS: POTASSIUM CHLORIDE 20 MEQ CONTROLLED RELEASE TAB PO SCH (09:00)
[2017-06-10 11:05] VITALS: PULSE 70
[2017-06-10 11:33] VITALS: BP 161/84; PULSE 83; RESP 16; TEMP 98.4; O2SAT 95
[2017-06-10] MEDS ORDERED: PILL SPLITTER OTHER PRN (14:30)
[2017-06-10] MEDS: METOPROLOL SUCCINATE 25 MG EXTENDED RELEASE TAB PO SCH (15:03)
[2017-06-10 16:21] VITALS: BP 139/93; PULSE 82; RESP 16; TEMP 97.8; O2SAT 96
--- NOTE | 2017-06-10 18:05 | HHI.PR ---
Subjective Remarks The patient is at the margin of the bed he appears short of breath with wheezing. Says he is using CPAP at night and sometimes is using the CPAP during the day. Receiving nebulizers. No much cough. Feels congested. No fever or chills. No nausea or vomiting or diarrhea or constipation. Objective Vitals Vital Signs Date Time Temp Pulse Resp B/P (MAP) Pulse Ox O2 Delivery O2 Flow Rate FiO2 06/10/17 16:21 97.8 82 16 139/93 (108) 96 06/10/17 11:33 98.4 83 16 161/84 (109) 95 06/10/17 11:05 70 06/10/17 07:18 97.6 70 17 179/79 (112) 94 06/10/17 07:18 17 06/09/17 22:58 98.1 76 18 157/76 (103) 95 06/09/17 21:07 96 21 Result Diagram: 06/09/17 0646 06/08/17 1725 Imaging Last Impressions Chest X-Ray 06/08/17 1717 Signed Impressions: Service Date/Time: Thursday, June 08, 2017 17:50 - CONCLUSION: 1. Cardiomegaly. No acute abnormality. Stable compared to prior dated 03/13/17. Cam Sesay MD Objective Remarks GENERAL: This is a well-nourished, well-developed patient, who appears short of breath.alert and oriented 3 CARDIOVASCULAR: Regular rate and rhythm without murmurs, gallops, or rubs. RESPIRATORY: patient has wheezes bilaterally. No rhonchi. Dry crackles bilaterally GASTROINTESTINAL: Abdomen soft, non-tender, nondistended. No hepato-splenomegaly , or palpable masses. No guarding. MUSCULOSKELETAL: Extremities without clubbing, cyanosis, or edema. No joint tenderness, effusion, or edema noted. No calf tenderness. Negative Homans sign bilaterally. NEUROLOGICAL: Awake and alert. Cranial nerves II through XII intact. Motor and sensory grossly within normal limits. Five out of 5 muscle strength in all muscle groups. Normal speech. A/P Assessment and Plan COPD exacerbation Bronchitis Chest x-ray with no acute findings. Pulmonology following. Appreciate assistance. Check theophylline level per pulm Add duonebs scheduled q4hr and q2 hrs prn as patient with wheezing Add IS Pulm Dr Mcnamara ff Coronary artery disease Presentation with chest pain History of hyperlipidemia No acute changes on EKG, troponin nonelevated Cardiology following. Appreciate assistance. Cardiology thinks is pulm related. Continue home medications. Diabetes mellitus 2. Continue insulin sliding scale and diabetic diet. BPH chronic. Continue home medication Discussed Condition With patient, nurse DC pending improvement and clearance form consultants Marii Can MD Jun 10, 2017 18:05
[2017-06-10 20:49] VITALS: O2SAT 95
[2017-06-10] MEDS: MONTELUKAST SODIUM 10 MG TAB PO SCH (21:53)
[2017-06-10] MEDS: ATORVASTATIN 80 MG TAB PO SCH (21:54)
[2017-06-10] MEDS: TERAZOSIN HCL 5 MG CAP PO SCH (21:54)
[2017-06-11] MEDS: RESP: ALBUTEROL 2.5 MG/IPRATROPIUM 0.5 MG NEB (SCH) NEB ×4 (00:51→12:22)
[2017-06-11 01:19] VITALS: BP 183/80; PULSE 75; RESP 18; TEMP 98; O2SAT 96
[2017-06-11 04:45] VITALS: PULSE 79
[2017-06-11] MEDS: methylPREDNISolone SOD SUCC 40 MG/1 ML VIAL IV PUSH SCH ×2 (05:50→13:44)
[2017-06-11 07:31] LABS: AUTOMATED NEUTROPHIL # 14.6 TH/MM3 (1.8-7.7); BASOPHIL % 0.1 % (0.0-2.0); HEMATOCRIT 27.5 % (39.0-51.0); HEMOGLOBIN 8.6 GM/DL (13.0-17.0); LYMPH % 2.9 % (9.0-44.0); LYMPHOCYTE # 0.5 TH/MM3 (1.0-4.8); MEAN CELL VOLUME 81.2 FL (80.0-100.0); MEAN CORPUSCULAR HEMOGLOBIN 25.3 PG (27.0-34.0); MEAN CORPUSCULAR HGB CONC 31.1 % (32.0-36.0); MEAN PLATELET VOLUME 8.8 FL (7.0-11.0); MONO % 4.5 % (0.0-8.0); MONOCYTE # 0.7 TH/MM3 (0-0.9); NEUT % 92.5 % (16.0-70.0); PLATELET COUNT 328 TH/MM3 (150-450); RED BLOOD COUNT 3.39 MIL/MM3 (4.50-5.90); RED CELL DISTRIBUTION WIDTH 20.1 % (11.6-17.2); WHITE BLOOD COUNT 15.8 TH/MM3 (4.0-11.0)
[2017-06-11 07:32] VITALS: BP 141/75; PULSE 78; RESP 20; TEMP 97.6; O2SAT 95
[2017-06-11] MEDS: INSULIN ASPART SUPPLEMENTAL SCALE SQ SCH ×2 (08:00→12:00)
[2017-06-11 08:16] LABS: BICARBONATE 24.2 MEQ/L (21.0-32.0); CALCIUM 9.3 MG/DL (8.5-10.1); CREATININE 0.83 MG/DL (0.60-1.30)
[2017-06-11] MEDS: ESCITALOPRAM OXALATE 20 MG TAB PO SCH (09:57)
[2017-06-11] MEDS: PANTOPRAZOLE SOD 20 MG DELAYED RELEASE TAB PO SCH (09:58)
[2017-06-11] MEDS: THEOPHYLLINE 200 MG EXTENDED RELEASE CAP PO SCH (09:58)
[2017-06-11] MEDS: METOPROLOL SUCCINATE 25 MG EXTENDED RELEASE TAB PO SCH (09:58)
[2017-06-11] MEDS: FUROSEMIDE 20 MG TAB PO SCH (09:58)
[2017-06-11] MEDS: POTASSIUM CHLORIDE 20 MEQ CONTROLLED RELEASE TAB PO SCH (09:58)
[2017-06-11] MEDS: HEPARIN SODIUM - SQ 10,000 UNITS/ML VIAL SQ SCH (09:59)
[2017-06-11] MEDS: SODIUM CHLORIDE 0.9% FLUSH 10 ML FLUSH IV FLUSH SCH (09:59)
[2017-06-11 11:30] VITALS: BP 142/64; PULSE 69; RESP 24; TEMP 97.7; O2SAT 95
[2017-06-11 15:02] VITALS: BP 137/77; PULSE 73; RESP 20; TEMP 97.8; O2SAT 98
--- NOTE | 2017-06-11 16:06 | HHI.DS ---
Discharge Summary Admission Date Jun 08, 2017 at 18:48 Discharge Date: Jun 11, 2017 Admitting Diagnosis CHEST PAIN (1) Acute chronic obstructive pulmonary disease with respiratory failure ICD Code: J96.00 - Acute respiratory failure, unspecified whether with hypoxia or hypercapnia; J44.9 - Chronic obstructive pulmonary disease, unspecified Status: Acute (2) Dyspnea ICD Code: R06.00 - Dyspnea, unspecified Status: Acute (3) COPD (chronic obstructive pulmonary disease) ICD Code: J44.9 - COPD (chronic obstructive pulmonary disease) Status: Acute (4) Type 2 diabetes mellitus with hyperglycemia ICD Code: E11.65 - Type 2 diabetes mellitus with hyperglycemia (5) HTN (hypertension) ICD Code: I10 - HTN (hypertension) Status: Acute Procedures No procedures Brief History - From Admission 81-year-old male with a history of COPD on 3 L nasal cannula, CAD status post CABG 2, hypertension, hyperlipidemia, diabetes, diastolic CHF presents with a 4 to five-day history of progressively worsening nonradiating substernal chest heaviness, shortness of breath, cough productive of whitish sputum. Denies any nausea, vomiting, lightheadedness, dizziness, fevers, chills. He reports generally feeling fatigued. Chest heaviness did not resolve with 3 doses of nitroglycerin at home. Patient does say that chest heaviness has improved greatly after DuoNeb's CBC/BMP: 06/11/17 0630 06/11/17 0630 Significant Findings Laboratory Tests Test 06/08/17 17:25 06/08/17 21:08 06/08/17 23:55 06/09/17 06:46 White Blood Count 11.7 TH/MM3 (4.0-11.0) 11.7 TH/MM3 (4.0-11.0) Red Blood Count 3.50 MIL/MM3 (4.50-5.90) 3.35 MIL/MM3 (4.50-5.90) Hemoglobin 9.0 GM/DL (13.0-17.0) 8.7 GM/DL (13.0-17.0) Hematocrit 29.0 % (39.0-51.0) 27.2 % (39.0-51.0) Mean Corpuscular Hemoglobin 25.8 PG (27.0-34.0) 25.9 PG (27.0-34.0) Mean Corpuscular Hemoglobin Concent 31.2 % (32.0-36.0) 31.8 % (32.0-36.0) Red Cell Distribution Width 20.3 % (11.6-17.2) 19.7 % (11.6-17.2) Neutrophils (%) (Auto) 95.2 % (16.0-70.0) 79.2 % (16.0-70.0) Lymphocytes (%) (Auto) 2.6 % (9.0-44.0) Neutrophils # (Auto) 11.1 TH/MM3 (1.8-7.7) 9.3 TH/MM3 (1.8-7.7) Lymphocytes # (Auto) 0.3 TH/MM3 (1.0-4.8) Activated Partial Thromboplast Time 19.4 SEC (24.3-30.1) Blood Urea Nitrogen 25 MG/DL (7-18) Random Glucose 243 MG/DL (74-106) Total Protein 6.3 GM/DL (6.4-8.2) Albumin 3.0 GM/DL (3.4-5.0) Aspartate Amino Transf (AST/SGOT) 13 U/L (15-37) Chloride Level 108 MEQ/L (98-107) Estimat Glomerular Filtration Rate 64 ML/MIN (>89) Creatine Kinase MB 4.8 NG/ML (0.5-3.6) 4.5 NG/ML (0.5-3.6) 4.5 NG/ML (0.5-3.6) Troponin I LESS THAN 0.02 NG/ML Monocytes (%) (Auto) 9.0 % (0.0-8.0) Monocytes # (Auto) 1.1 TH/MM3 (0-0.9) Test 06/09/17 16:14 06/11/17 06:30 Theophylline Level 5.9 MCG/ML (10.0-20.0) White Blood Count 15.8 TH/MM3 (4.0-11.0) Red Blood Count 3.39 MIL/MM3 (4.50-5.90) Hemoglobin 8.6 GM/DL (13.0-17.0) Hematocrit 27.5 % (39.0-51.0) Mean Corpuscular Hemoglobin 25.3 PG (27.0-34.0) Mean Corpuscular Hemoglobin Concent 31.1 % (32.0-36.0) Red Cell Distribution Width 20.1 % (11.6-17.2) Neutrophils (%) (Auto) 92.5 % (16.0-70.0) Lymphocytes (%) (Auto) 2.9 % (9.0-44.0) Neutrophils # (Auto) 14.6 TH/MM3 (1.8-7.7) Lymphocytes # (Auto) 0.5 TH/MM3 (1.0-4.8) Blood Urea Nitrogen 27 MG/DL (7-18) Random Glucose 178 MG/DL (74-106) Imaging Last Impressions Chest X-Ray 06/08/17 5508 Signed Impressions: Service Date/Time: Thursday, June 08, 2017 17:50 - CONCLUSION: 1. Cardiomegaly. No acute abnormality. Stable compared to prior dated 03/13/17. Cam Sesay MD PE at Discharge GENERAL: This is a well-nourished, well-developed patient, who appears short of breath.alert and oriented 3 CARDIOVASCULAR: Regular rate and rhythm without murmurs, gallops, or rubs. RESPIRATORY: patient has wheezes bilaterally. No rhonchi. Dry crackles bilaterally GASTROINTESTINAL: Abdomen soft, non-tender, nondistended. No hepato-splenomegaly , or palpable masses. No guarding. MUSCULOSKELETAL: Extremities without clubbing, cyanosis, or edema. No joint tenderness, effusion, or edema noted. No calf tenderness. Negative Homans sign bilaterally. NEUROLOGICAL: Awake and alert. Cranial nerves II through XII intact. Motor and sensory grossly within normal limits. Five out of 5 muscle strength in all muscle groups. Normal speech. Hospital Course COPD exacerbation Bronchitis Chest x-ray with no acute findings. Pulmonology following. Appreciate assistance. Check theophylline level per pulm Add duonebs scheduled q4hr and q2 hrs prn as patient with wheezing Add IS Pulm Dr Mcnamara ff. Clear patient for discharge. To follow-up as outpatient with PCP and consultants Coronary artery disease Presentation with chest pain History of hyperlipidemia No acute changes on EKG, troponin non elevated Cardiology following. Appreciate assistance. Cardiology thinks is pulm related. Continue home medications. Diabetes mellitus 2. Continue insulin sliding scale and diabetic diet. BPH chronic. Continue home medication Discussed Condition With patient, nurse Continue home medications as appropriate Improved. Patient is discharged in stable condition. To follow-up as outpatient with PCP and consultants. Pt Condition on Discharge: Stable Discharge Disposition: Disch w/ Home Health Serv Discharge Time: > 30 minutes Discharge Instructions DIET: Follow Instructions for: Heart Healthy Diet Activities you can perform: Regular-No Restrictions Follow up Referrals: Cardiology - 3 Weeks PCP Follow-up - 2-3 Days Pulmonology - 2 Weeks Continued Medications: Atorvastatin (Atorvastatin) 40 Mg Tab 80 MG PO HS for Cholesterol Management, #30 TAB 0 Refills Escitalopram (Escitalopram) 10 Mg Tab 20 MG PO DAILY, #30 TAB 0 Refills Furosemide (Furosemide) 20 Mg Tab 20 MG PO DAILY, #30 TAB 0 Refills Metformin ER (Metformin ER) 500 Mg Mikayla 500 MG PO DAILY for Blood Sugar Management, TAB 0 Refills With evening meal Metoprolol Tartrate (Metoprolol Tartrate) 25 Mg Tab 12.5 MG PO DAILY, #60 TAB 0 Refills Mometasone 120 Act Inh (Asmanex 120 Act Twisthaler) 220 Mcg/Act Inh 2 PUFF INH BID for Asthma Management, #1 INHALER 0 Refills Montelukast (Montelukast) 10 Mg Tab 10 MG PO HS, #30 TAB 0 Refills Omeprazole (Omeprazole) 20 Mg Tab 20 MG PO DAILY, #30 TAB 0 Refills Potassium Chloride ER (Potassium Chloride ER) 20 Meq Tab 20 MEQ PO DAILY for Electrolyte Replacement, #30 TAB 0 Refills Prednisone (Prednisone) 10 Mg Tab 40 MG PO DAILY, TAB 0 Refills Terazosin (Terazosin) 5 Mg Cap 5 MG PO HS, #30 CAP 0 Refills Theophylline ER 24 HR (Theophylline ER 24 HR) 400 Mg Tab 400 MG PO DAILY, #30 TAB 0 Refills Tiotropium-Olodaterol Inh (Stiolto Respimat Inh) 2.5-2.5 Mcg/Act Aero 2 PUFF INH DAILY for COPD, #1 INHALER 0 Refills Marii Can MD Jun 11, 2017 16:06
--- NOTE | 2017-06-11 17:25 | MD ---
cc: Noman Mcnamara MD DATE OF DISCHARGE: HISTORY AND HOSPITAL COURSE: Mr. Cedillo is an 82-year-old white male well known to me with steroid dependent COPD/asthma. He presented actually with chest pain, was seen by Dr. Sandhu and then by Dr. Lowry, his regular [employer] and felt not to be having active ischemia. It could have been related to some chest pressure with an exacerbation of COPD or his reflux disease. He was kept in observation now for 72 hours, treated with IV corticosteroids and aerosolized bronchodilators and is feeling much better. Still has dyspnea on exertion, but O2 saturations are very adequate, even on room air. A chest x-ray on 06/08/2017 revealed cardiomegaly, but no evidence of heart failure, no pneumonia or infiltrate. Today, he is afebrile, pulse is 70, respirations are 18, and his blood pressure is 130/70. Neck veins are flat. Minimal wheezing at present without congestion or rales. No harsh murmur and no significant edema. The patient can be discharged. He will continue his prednisone at 40 mg and call me with an update in 2 days, so we can begin his taper. He has oxygen at home. He will continue his Singulair, his theophylline which is with a level that was not elevated during this admission at 5.9, also continue his inhaled corticosteroid nebulized bronchodilator. We will see him back in the office next week, and he will followup with Dr. Lowry as instructed. MD SATYA Millard/YORDY , 03:59 PM , 05:24 PM
== END 2017-06-11 19:54 | disposition home or self-care (01) ==
LOC: NEPE 17:02 → NEDA 18:48 → NEPHCDU 21:49
PROVIDERS: ADMIT Hospitalist; ATTEND Hospitalist
DX: J44.1 Chronic obstructive pulmonary disease with (acute) exacerbation (principal); J96.90 Respiratory failure, unspecified, unspecified whether with hypoxia or hypercapnia; I25.10 Atherosclerotic heart disease of native coronary artery without angina pectoris; I11.0 Hypertensive heart disease with heart failure; I50.32 Chronic diastolic (congestive) heart failure; I45.2 Bifascicular block; E78.00 Pure hypercholesterolemia, unspecified; E11.65 Type 2 diabetes mellitus with hyperglycemia; I25.2 Old myocardial infarction; G47.33 Obstructive sleep apnea (adult) (pediatric); K21.9 Gastro-esophageal reflux disease without esophagitis; F41.9 Anxiety disorder, unspecified; F32.9 Major depressive disorder, single episode, unspecified; H91.90 Unspecified hearing loss, unspecified ear; N40.0 Benign prostatic hyperplasia without lower urinary tract symptoms; E66.9 Obesity, unspecified; Z95.5 Presence of coronary angioplasty implant and graft; Z79.4 Long term (current) use of insulin; Z99.81 Dependence on supplemental oxygen; Z95.1 Presence of aortocoronary bypass graft; Z79.899 Other long term (current) drug therapy; Z79.84 Long term (current) use of oral hypoglycemic drugs; Z87.891 Personal history of nicotine dependence
CPT/HCPCS: 71045; 80048; 80053; 80198; 82272; 82550; 82552; 82948; 83690; 83735; 84484; 85025; 85610; 85730; 93005; 94640; 94664; 96361; 96372; 96374; 96376; 97162; 99285; G0378; G8987; G8988; J1644; J1815; J2920; J7040; J7512